=== PATIENT | female | born 1950 | race Caucasian/White ===

== ENCOUNTER → 2017-07-16 14:11 | Outpatient (CLI) | payer MEDICARE, SELFPAY ==
[2017-07-16 15:54] LABS: Absolute Lymphocyte Count 2.03 X10^3/ul (0.83-4.51); Absolute Neutrophil Count 4.2 X10^3/uL (2.0-7.7); Basophil# 0.06 X10^3/uL; Basophil% 0.8 % (0-1); Eosinophil# 0.39 X10^3/uL; Eosinophils% 5.4 % (0-5); Hematocrit 42.2 % (37-47); Lymphocyte # 2.03 X10^3/ul (4.0); Lymphocyte % 28.4 % (19-41); Mean Corp Hgb Conc 33.2 g/gl (32-36); Mean Corpuscular Hgb 29.7 pg (27.0-32.0); Mean Corpuscular Volume 89.6 fL (81-99); Mean Platelet Vol. 10.4 fl (6.2-12.0); Neutrophil # 4.15 X10^3/uL (2.7-7.7); Platelet Count 282 K/mm3 (150-450); RBC Distribution Width CV 15.3 % (11.6-14.6); RBC Distribution Width SD 50.2 fl (35.1-43.9); Red Blood Count 4.71 M/mm3 (4.2-5.4); White Blood Count 7.2 K/mm3 (4.4-11.0)
[2017-07-16 15:57] LABS: POSITIVE COUNT NO; POSITIVE DIFFERENTIAL NO; POSITIVE MORPHOLOGY NO
[2017-07-16 16:12] LABS: Hemoglobin A1c 6.4 % (4.2-6.3)
[2017-07-16 16:17] LABS: ALB/GLOB Ratio 0.9 RATIO (0.9-2.4); AST(SGOT) 14 U/L (15-37); Alanine Aminotransfer ALT/SGPT 20 U/L (13-56); Albumin, Serum 3.3 g/dL (3.2-5.0); Alkaline Phosphatase 106 U/L (45-117); Anion Gap 6 (5-15); BUN 13 mg/dL (7-18); Calcium,Total 8.5 mg/dL (8.5-10.1); Chloride 99 mmol/L (98-107); Creatinine, Serum 0.86 mg/dL (0.55-1.02); EST Glomerular Filtration Rate 70 mL/min (>60); Est Glom Filt Rate - Afr Amer 84 mL/min (>60); Ferritin 51 ng/mL (8-252); Globulin 3.6 g/dL (2.2-4.2); Glucose 95 mg/dL (70-110); Iron 58 ug/dL (50-170); Potassium 3.5 mmol/L (3.5-5.1); Protein, Total 6.9 g/dL (6.4-8.2); Sodium Level 137 mmol/L (136-145); Thyroid Stim Hormone (TSH) 0.54 uIU/mL (0.358-3.74)
== END ==
PROVIDERS: Family Provider Family Medicine; PCP Family Medicine; Visit Provider Family Medicine
DX: D64.9 Anemia, unspecified (principal); R73.9 Hyperglycemia, unspecified; D50.9 Iron deficiency anemia, unspecified; I12.9 Hypertensive chronic kidney disease with stage 1 through stage 4 chronic kidney disease, or unspecified chronic kidney disease; N18.3 Chronic kidney disease, stage 3 (moderate)
CPT/HCPCS: 36415; 80053; 82728; 83036; 83540; 84443; 85025

== ENCOUNTER → 2017-07-24 14:00 | Outpatient (CLI) | payer MEDICARE, OTHER, SELFPAY ==
[2017-07-24 15:31] LABS: Amphetamine Urine VISTA NEGATIVE (<1000 ng/mL); Barbiturate Urine VISTA NEGATIVE (< 200 ng/mL); Benzodiazepine Urine VISTA NEGATIVE (< 200 ng/mL); Cocaine Urine VISTA NEGATIVE (< 300 ng/mL); Ecstacy Urine VISTA NEGATIVE (< 500 ng/mL); Methadone Urine VISTA NEGATIVE (< 300 ng/mL); PCP Urine VISTA NEGATIVE (< 25 ng/mL); THC Urine VISTA NEGATIVE (< 50 ng/mL); Vista UDS pH Range 6
== END ==
PROVIDERS: Family Provider Family Medicine; PCP Family Medicine; Visit Provider Anesthesiology Pain Medicine
DX: F11.20 Opioid dependence, uncomplicated (principal)
CPT/HCPCS: 80307

== ENCOUNTER → 2017-10-04 11:09 | Outpatient (CLI) | payer MEDICARE, OTHER, SELFPAY ==
[2017-10-04 12:32] LABS: Anion Gap 8 (5-15); BUN 23 mg/dL (7-18); Calcium,Total 8.9 mg/dL (8.5-10.1); Chloride 103 mmol/L (98-107); Creatinine, Serum 0.92 mg/dL (0.55-1.02); EST Glomerular Filtration Rate 65 mL/min (>60); Est Glom Filt Rate - Afr Amer 78 mL/min (>60); Glucose 114 mg/dL (74-106); Potassium 3.7 mmol/L (3.5-5.1); Sodium Level 137 mmol/L (136-145)
[2017-10-04 12:39] LABS: Absolute Lymphocyte Count 2.11 X10^3/ul (0.83-4.51); Absolute Neutrophil Count 4.8 X10^3/uL (2.0-7.7); Basophil# 0.04 X10^3/uL; Basophil% 0.5 % (0-1); Eosinophil# 0.14 X10^3/uL; Eosinophils% 1.8 % (0-5); Hematocrit 46.4 % (37-47); Hemoglobin 15.6 g/dl (12.0-15.0); Lymphocyte # 2.11 X10^3/ul (4.0); Lymphocyte % 27.4 % (19-41); Mean Corp Hgb Conc 33.6 g/gl (32-36); Mean Corpuscular Hgb 30.2 pg (27.0-32.0); Mean Corpuscular Volume 89.7 fL (81-99); Mean Platelet Vol. 9.8 fl (6.2-12.0); Monocyte# 0.61 X10^3/uL; Monocyte% 7.9 % (0-10); Neutrophil # 4.78 X10^3/uL (2.7-7.7); Platelet Count 288 K/mm3 (150-450); RBC Distribution Width CV 14.6 % (11.6-14.6); RBC Distribution Width SD 47.4 fl (35.1-43.9); Red Blood Count 5.17 M/mm3 (4.2-5.4); White Blood Count 7.7 K/mm3 (4.4-11.0)
[2017-10-04 12:40] LABS: POSITIVE COUNT NO; POSITIVE DIFFERENTIAL NO; POSITIVE MORPHOLOGY NO
[2017-10-04 14:17] LABS: Hemoglobin A1c 6.6 % (4.2-6.3)
== END ==
PROVIDERS: Family Provider Family Medicine; PCP Family Medicine; Visit Provider Family Medicine
DX: R73.01 Impaired fasting glucose (principal); I12.9 Hypertensive chronic kidney disease with stage 1 through stage 4 chronic kidney disease, or unspecified chronic kidney disease; N18.3 Chronic kidney disease, stage 3 (moderate)
CPT/HCPCS: 36415; 80048; 83036; 85025

== ENCOUNTER → 2017-12-25 13:27 | Outpatient (CLI) | payer MEDICARE, OTHER, SELFPAY ==
--- NOTE | 2017-12-25 13:38 | RAD_ITS ---
STUDY: X-RAY - PELVIS AND LEFT HIP REASON FOR EXAM: Female, 67 years old. Hip pain. TECHNIQUE: Radiological exam, hip, unilateral, with pelvis when performed; 2 or 3 views. COMPARISON: None. FINDINGS: There is a non-specific bowel gas pattern. Normal visualized soft tissue structures. Normal bilateral iliac wings, sacroiliac joints and visualized sacrum. Normal bilateral superior and inferior pubic rami. Normal pubic symphysis. Normal bilateral ischial tuberosities. There are degenerative changes of the lower lumbar spine. There are extensive degenerative changes of the left hip characterized by joint space narrowing and subchondral sclerosis. There is a curvilinear bony density lateral to the acetabulum consistent with an osseous injury of uncertain chronicity. RAD/Hip 2-3 Views with Pelvis IMPRESSION: Extensive degenerative changes of the left hip. Electronically Signed: Rajni Patino MD at 14:00 EDT Tel , Service support ,
== END ==
PROVIDERS: Family Provider Family Medicine; PCP Family Medicine; Visit Provider Anesthesiology Pain Medicine
DX: M25.552 Pain in left hip (principal)
CPT/HCPCS: 73502

== ENCOUNTER → 2018-02-21 15:15 | Outpatient (CLI) | payer MEDICARE, OTHER, SELFPAY | PROVIDERS: Family Provider Family Medicine; PCP Family Medicine; Visit Provider Family Medicine | DX: R35.0 Frequency of micturition (principal) | CPT/HCPCS: 87086; 87088 ==

== ENCOUNTER → 2018-06-23 14:04 | Outpatient (CLI) | payer MEDICARE, OTHER, SELFPAY ==
[2018-06-23 14:10] LABS: Bacteria 0 SEEN /hpf (None Seen); Mucous, Urine 0 SEEN /hpf (<or=2+); Red Blood Cells-Urine 0 SEEN /hpf (0-5)
[2018-06-23 15:38] LABS: Color, Urine Yellow (Yellow); Glucose, Dipstick Normal (Normal); Ketone-Dipstick Negative (Negative); Leukocyte Esterase-Dipstick 25 /ul (Negative); Nitrite-Dipstick Negative (Negative); Occult Blood-Urine 10 /ul (Negative); Protein-Dipstick 15 mg/dl (Negative); Urine Bilirubin Dipstick 1 mg/dL (Negative); Urine Clarity Sl. Cloudy (Clear); Urine Urobilinogen 1 mg/dl (Normal)
[2018-06-23 15:49] LABS: Hemoglobin A1c 6.9 % (4.2-6.3); Squamous Epithelial Cells - UA 5-10 SEEN /hpf (5-10)
[2018-06-23 15:51] LABS: White Blood Cells 0-5 SEEN /hpf (0-5)
[2018-06-23 16:14] LABS: Absolute Lymphocyte Count 2.04 X10^3/ul (0.83-4.51); Absolute Neutrophil Count 4.8 X10^3/uL (2.0-7.7); Basophil# 0.05 X10^3/uL; Basophil% 0.7 % (0-1); Eosinophil# 0.09 X10^3/uL; Eosinophils% 1.2 % (0-5); Hematocrit 48.7 % (37-47); Hemoglobin 16.3 g/dl (12.0-15.0); Lymphocyte # 2.04 X10^3/ul (4.0); Lymphocyte % 26.9 % (19-41); Mean Corp Hgb Conc 33.5 g/gl (32-36); Mean Corpuscular Hgb 29.8 pg (27.0-32.0); Mean Platelet Vol. 10.1 fl (6.2-12.0); Monocyte# 0.54 X10^3/uL; Monocyte% 7.1 % (0-10); Neutrophil # 4.82 X10^3/uL (2.7-7.7); Neutrophil % 63.7 % (47-70); Platelet Count 348 K/mm3 (150-450); RBC Distribution Width SD 49.6 fl (35.1-43.9); Red Blood Count 5.47 M/mm3 (4.2-5.4); White Blood Count 7.6 K/mm3 (4.4-11.0)
[2018-06-23 16:17] LABS: Progesterone Level 0.07 ng/mL (See Comment)
[2018-06-23 16:32] LABS: Microalbumin,Random Urine 18.7 mg/L (NO RANGE EST.); Microalbumin:Creatinine Ratio 12.8 mg/g CRE (<30 mg/g CRE)
[2018-06-23 16:34] LABS: POSITIVE COUNT NO; POSITIVE DIFFERENTIAL NO; POSITIVE MORPHOLOGY NO
[2018-06-23 17:08] LABS: ALB/GLOB Ratio 0.9 RATIO (0.9-2.4); AST(SGOT) 22 U/L (15-37); Alanine Aminotransfer ALT/SGPT 32 U/L (13-56); Albumin, Serum 3.7 g/dL (3.2-5.0); Alkaline Phosphatase 118 U/L (45-117); Anion Gap 10 (5-15); BUN 11 mg/dL (7-18); BUN/Creat Ratio 12.3 RATIO (10-20); Calcium,Total 9.3 mg/dL (8.5-10.1); Chloride 99 mmol/L (98-107); EST Glomerular Filtration Rate 67 mL/min (>60); Est Glom Filt Rate - Afr Amer 81 mL/min (>60); Estradiol 21.6 pg/mL; Ferritin 72 ng/mL (8-252); Globulin 3.9 g/dL (2.2-4.2); Glucose 104 mg/dL (74-106); Potassium 3.3 mmol/L (3.5-5.1); Protein, Total 7.6 g/dL (6.4-8.2); Sodium Level 139 mmol/L (136-145); T4 Free Direct 1.07 ng/dL (0.76-1.46); Thyroid Stim Hormone (TSH) 0.31 uIU/mL (0.358-3.74)
[2018-06-25 11:10] LABS: DHEA Sulfate 25.1 ug/dL (20.4-186.6)
== END ==
PROVIDERS: Family Provider Family Medicine; PCP Family Medicine; Visit Provider Family Medicine
DX: I10 Essential (primary) hypertension (principal); R61 Generalized hyperhidrosis; D50.9 Iron deficiency anemia, unspecified; R10.9 Unspecified abdominal pain; R23.2 Flushing
CPT/HCPCS: 36415; 80053; 81001; 82043; 82570; 82627; 82670; 82728; 83036; 84144; 84403; 84439; 84443; 85025; 87086; 87088; 82626

== ENCOUNTER → 2018-09-18 15:53 | Outpatient (CLI) | payer MEDICARE, OTHER, SELFPAY | PROVIDERS: Family Provider Family Medicine; PCP Family Medicine; Referring Provider Anesthesiology Pain Medicine; Visit Provider Anesthesiology Pain Medicine | DX: F11.20 Opioid dependence, uncomplicated (principal) | CPT/HCPCS: 80307 ==

== ENCOUNTER → 2019-01-21 11:08 | Outpatient (CLI) | payer MEDICARE, OTHER, SELFPAY ==
[2019-01-21 12:59] LABS: Cholesterol 227 mg/dL (200); High Density Lipoprotein 53 mg/dL; Triglycerides 170 mg/dL; Very Low Density Lipoprotein 34 mg/dL (5-40)
[2019-01-21 13:01] LABS: Hemoglobin A1c 6.4 % (4.2-6.3)
== END ==
PROVIDERS: Family Provider Family Medicine; PCP Family Medicine; Visit Provider Family Medicine
DX: E11.9 Type 2 diabetes mellitus without complications (principal); I10 Essential (primary) hypertension
CPT/HCPCS: 36415; 80061; 83036

== ENCOUNTER → 2019-02-04 | Outpatient (CLI) | payer MEDICARE, OTHER, SELFPAY ==
--- NOTE | 2019-02-04 09:13 | STRESSREP ---
Stress Test Report Date: 02-04-19 Procedure: Pharmacologic stress nuclear imaging study Indications: Hypertension; chest discomfort Consent: Per the patient Procedure: The patient underwent pharmacologic (Regadenoson) evaluation with a peak heart rate of 75 beats per minute (49 %predicted maximal heart rate) and a peak blood pressure of 118/78 mmHg. The baseline ECG demonstrated normal sinus rhythm. The peak pharmacologic ECG demonstrated no obvious ECG changes. There were no cardiac dysrhythmias pretest, during pharmacologic infusion, or recovery. There was no complaint of chest discomfort during pharmacologic infusion or recovery. The examination was discontinued secondary to completion of protocol. Impression: 1. Pharmacologic (Regadenoson) evaluation 2. Peak pharmacologic ECG with no obvious ECG changes. 3. There were no cardiac dysrhythmias pretest, during pharmacologic infusion, or recovery. 4. Nuclear images pending Myocardial perfusion imaging study: Technique: The patient was injected with 14.3 millicuries of technetium 99m Cardiolite and subsequently rest SPECT Cardiolite nuclear imaging was obtained in the horizontal long, vertical long, and short axis views. The patient underwent pharmacologic (Regadenoson) evaluation with a peak heart rate of 75 beats per minute (49 % percent predicted maximal heart rate) and a peak blood pressure of 118/78 mmHg. The patient was injected with 44.3 millicuries of technetium 99m Cardiolite and subsequently stress SPECT Cardiolite nuclear imaging was obtained in the horizontal long, vertical long, and short axis views. A gated Cardiolite study at peak stress was obtained. Interpretation: Rest and stress SPECT Cardiolite nuclear imaging status post realignment, normalization, and attenuation correction demonstrate relative uniform tracer uptake and myocardial perfusion appearing within normal limits. There is end systolic thickening and brightening. The gated Cardiolite study demonstrates myocardial thickening and inward wall motion. The reported LVEF is 76 %. Impression: 1. Rest and stress SPECT Cardiolite nuclear imaging demonstrate relative uniform tracer uptake and myocardial perfusion appearing within normal limits. 2. The gated Cardiolite study reports an LVEF of 76 %. This note was generated with UN[employer]ation software. It may contain incorrect words, spelling, and punctuation that were not noted in checking the note before signing.
== END | disposition home or self-care (01) ==
PROVIDERS: Family Provider Family Medicine; PCP Family Medicine; Referring Provider Family Medicine; Visit Provider Family Medicine
DX: R06.09 Other forms of dyspnea (principal); I10 Essential (primary) hypertension; E78.5 Hyperlipidemia, unspecified; R53.83 Other fatigue; I70.0 Atherosclerosis of aorta; Z72.0 Tobacco use
CPT/HCPCS: 78452; 93017; A9500; A4216; J2785

== ENCOUNTER → 2019-04-15 | Outpatient (CLI) | payer MEDICARE, OTHER, SELFPAY ==
--- NOTE | 2019-04-15 14:55 | CT_ITS ---
STUDY: CT BRAIN WITH AND WITHOUT CONTRAST REASON FOR EXAM: Female, 68 years old. Peak and falls, urinary continence, rule out normal pressure hydrocephalus. RADIATION DOSAGE (If Supplied By Facility): CTDIvol = ( 44.99 ) mGy, DLP = ( 779.24 ) mGycm TECHNIQUE: Transaxial CT imaging of the brain was performed pre and post contrast administration. The examination was performed with intravenous administration of IV Isovue 370 50ML. Individualized dose optimization techniques were used for this CT. COMPARISON: None. FINDINGS: Normal soft tissue structures. Normal calvarium. There is mild cerebral atrophy with widening of the extra-axial spaces and ventricular dilatation. There are areas of decreased attenuation within the white matter tracts of the supratentorial brain, consistent with microvascular disease changes. There is a small ovoid CSF attenuation structure within the anterior aspect of the right internal capsule measuring 6 mm and most compatible with old lacunar infarct. Otherwise normal basal ganglia and thalami. Normal brainstem. Normal cerebellum. There is no intracranial hemorrhage. There are no findings of an acute ischemic infarction. Normal visualized paranasal sinuses. CT/Brain/Head W/WO Contrast IMPRESSION: Involutional changes along with microangiopathic white matter disease. Normal enhancement of the intracranial structures. No acute intracranial hemorrhage or space-occupying lesion. Electronically Signed: Alessandra Harkins MD at 5:13 EDT , Service support ,
[2019-04-15 15:16] LABS: CREATININE FINGERSTICK 1.1 mg/dL (0.55-1.02)
== END | disposition home or self-care (01) ==
PROVIDERS: Family Provider Family Medicine; PCP Family Medicine; Referring Provider Family Medicine; Visit Provider Family Medicine
DX: R29.6 Repeated falls (principal); N39.41 Urge incontinence
CPT/HCPCS: 70470; Q9967

== ENCOUNTER → 2019-11-03 12:17 | Outpatient (CLI) | payer MEDICARE, OTHER, SELFPAY ==
[2019-11-03 13:44] LABS: Amphetamine Urine VISTA NEGATIVE (<1000 ng/mL); Barbiturate Urine VISTA NEGATIVE (< 200 ng/mL); Benzodiazepine Urine VISTA NEGATIVE (< 200 ng/mL); Cocaine Urine VISTA NEGATIVE (< 300 ng/mL); Ecstacy Urine VISTA NEGATIVE (< 500 ng/mL); Methadone Urine VISTA NEGATIVE (< 300 ng/mL); PCP Urine VISTA NEGATIVE (< 25 ng/mL); THC Urine VISTA NEGATIVE (< 50 ng/mL); Vista UDS pH Range 6
== END ==
PROVIDERS: PCP Family Medicine; Referring Provider Anesthesiology Pain Medicine; Visit Provider Anesthesiology Pain Medicine
DX: F11.20 Opioid dependence, uncomplicated (principal)
CPT/HCPCS: 80307

== ENCOUNTER → 2020-03-24 | Outpatient (CLI) | payer MEDICARE, OTHER, SELFPAY ==
[2020-03-24 12:35] LABS: Absolute Lymphocyte Count 1.43 X10^3/uL (0.83-4.51); Absolute Neutrophil Count 4.6 X10^3/uL (2.0-7.7); Basophil# 0.07 X10^3/uL; Eosinophil# 0.18 X10^3/uL; Eosinophils% 2.6 % (0-5); Hematocrit 44.8 % (37-47); Hemoglobin 14.5 g/dL (12.0-15.0); Lymphocyte # 1.43 X10^3/ul (4.0); Lymphocyte % 20.8 % (19-41); Mean Corp Hgb Conc 32.4 g/dL (32-36); Mean Corpuscular Hgb 28.8 pg (27.0-32.0); Mean Corpuscular Volume 88.9 fL (81-99); Mean Platelet Vol. 9.6 fl (6.2-12.0); Monocyte# 0.58 X10^3/uL; Monocyte% 8.4 % (0-10); NRBC Flagged by Analyzer 0 % (0-5); Neutrophil % 66.9 % (47-70); Platelet Count 306 K/mm3 (150-450); RBC Distribution Width CV 13.8 % (11.6-14.6); RBC Distribution Width SD 44.9 fl (35.1-43.9); Red Blood Count 5.04 M/mm3 (4.2-5.4); White Blood Count 6.9 K/mm3 (4.4-11.0)
[2020-03-24 13:09] LABS: ALB/GLOB Ratio 0.9 RATIO (0.9-2.4); AST(SGOT) 22 U/L (15-37); Alanine Aminotransfer ALT/SGPT 31 U/L (13-56); Albumin, Serum 3.4 g/dL (3.2-5.0); Alkaline Phosphatase 107 U/L (45-117); Anion Gap 6 (5-15); BUN 11 mg/dL (7-18); BUN/Creat Ratio 13.2 RATIO (10-20); Calcium,Total 8.9 mg/dL (8.5-10.1); Chloride 99 mmol/L (98-107); Cholesterol 152 mg/dL (200); Creatinine, Serum 0.83 mg/dL (0.55-1.02); EST Glomerular Filtration Rate 72 mL/min (>60); Est Glom Filt Rate - Afr Amer 87 mL/min (>60); Ferritin 57 ng/mL (8-252); Globulin 3.6 g/dL (2.2-4.2); Glucose 118 mg/dL (74-106); High Density Lipoprotein 56 mg/dL; Iron 92 ug/dL (50-170); Potassium 3.5 mmol/L (3.5-5.1); Sodium Level 135 mmol/L (136-145); Triglycerides 170 mg/dL; Very Low Density Lipoprotein 34 mg/dL (5-40)
[2020-03-24 13:16] LABS: Vitamin B12 383 pg/mL (211-911); Vitamin D,25 Hydroxy 18.8 ng/mL
[2020-03-24 21:55] LABS: Hemoglobin A1c 6.5 % (3.8-5.6)
== END | disposition home or self-care (01) ==
LOC: BFHLAB 10:56
PROVIDERS: PCP Family Medicine; Visit Provider Family Medicine
DX: E11.9 Type 2 diabetes mellitus without complications (principal); I10 Essential (primary) hypertension; E78.5 Hyperlipidemia, unspecified; D50.9 Iron deficiency anemia, unspecified; E55.9 Vitamin D deficiency, unspecified; Z51.81 Encounter for therapeutic drug level monitoring
CPT/HCPCS: 36415; 80053; 80061; 82306; 82607; 82728; 83036; 83540; 85025

== ENCOUNTER 2020-04-11 15:30 | Outpatient (RCR) | payer MEDICARE, OTHER, SELFPAY ==
--- NOTE | 2020-04-06 16:39 | HP.PTEVAL_ITS ---
Patient's Visit Information SERA MAYA is a 69 year old F referred to Physical Therapy by Dr. Kush Cheung DO with a diagnosis of Falls, dizzyness, lumbar stenosis.. Date of Evaluation: 04/06/20 Physical Therapist: Paresh Solis, DPT, OCS, CSCS - Visit Plan Frequency: 3x /Week Duration: 4-6 Weeks Plan: 3x/week for 3-6 weeks for. 1. Hip strengthening and core sterngthening progressing to I HEP as exit strategy. 2. General ex pt can do at home with list/pics as exit strategy. 3. Emphasize L hip strength. - Subjective Has fallen 3x in last week. Hut ribs last time. Doctor aware and has sent for therapy. Last fall was opening door too fast and turned quick. Tripped over cat carrier hitting ribs on carrier. Can get up herself with chair for support. Other falls were tripping over a foot. No spinning in a long time. No n europathy. Uses cane to get around outside of home, not in the house. Pain is not bad now. Back is feeling pretty good as doctor Senia gave injection 3 weeks ago. L ribs hurt now and then. Sleeping well. No regular exercises. Does cooking and dishes until ribs hut. Making bed is hard on back. Lifting heavy pot can hurt. Basic aDLs are I. H/O L NADIYA 3 yrs ago and balacne has not been the same since. Not employed, on disability from back pain. Spends day reading and playing on phone and feeding cats. - Pain L ant ribs Pain Intensity (Out of 10): 8 Pain Intensity Range: 8 - Objective L leg shorter than R by 3/8 inch. Uses cane to ambulate into PT with L hip jutting out to side. mod I. Transfers are I with UE but slow. Bed trasnfers I but L ribs pain makes it labored. Steps are reciprocal with one cane and one rail up and down and slow and evidence of weakness aprticularly L hip. reflexes 0/3 patella and achilles. Sensation LE WNL to gross light touch. Strength ankles 4-, knee extension 4, knee flexion 4, hip flexion 4-, hip abduction 3+ and hip extension 3/5. core strength 3- abd and back ext. LB aROM ext min limitecd, flexion min limited, SB min limited, no pain in any direction. - Balance Scores Functional Gait Assessment Score: 21 % Disability: 30.0000 CATSIB Score (Max score 120 seconds): 70 - Goals Goal 1:: Pt I appropr EHp to help mitigate effects of sedentarism. Goal Time Frame: 4-6 Weeks Goal 2:: Pt feel 75% more active with no pain or dizzyness Goal Time Frame: 4-6 Weeks Goal 3:: Pt score 40/80 on LEFS to show improved mobility Goal Time Frame: 4-6 Weeks Goal 4:: Score fGA >23/30 Goal Time Frame: 4-6 Weeks - Rehabilitation Potential Physical Therapy Diagnosis: Falls from weakness, sedentarism. Rehabilitation Potential: Fair - Anticipated Interventions Patient/Client Instruction: Educate patient on: Condition For the Purpose of:: To increase ROM, To improve muscle performance and motor function, To increase tolerance to activity/condition/position, To improve ability of physical actions for home/community/work/leisure Therapeutic Exercise to Include: Strength training, Balance training, Flexibilty training, Gait and locomotor training For the Purpose of:: To improve muscle performance and motor function, To increase tolerance to activity/condition/position, To improve ability of physical actions for home/community/work/leisure Functional Training to Include: Gait training For the Purpose of:: To improve gait and locomotor functions Thank you for the opportunity to evaluate your patient. For Medicare and Medicare HMO plans, please review the plan of care and approve it. It will need to be FAXED BACK to us at [phone] for Medicare purposes. For Medicare only, by signing this I certify the plan of care. Please let me know if there are questions or concerns regarding this plan of care. Physician Signature: Date:
--- NOTE | 2020-05-24 17:30 | HP.PT.NRP ---
SERA MAYA was seen in my office for initial evaluation on 04/06/20. The following Plan of Care was established for this patient: Initial Frequency: 3x /Week Initial Duration: 4-6 Weeks Patient/Client Instruction: Educate patient on: Condition For the Purpose of:: To increase ROM, To improve muscle performance and motor function, To increase tolerance to activity/condition/position, To improve ability of physical actions for home/community/work/leisure Therapeutic Exercise to Include: Strength training, Balance training, Flexibilty training, Gait and locomotor training For the Purpose of:: To improve muscle performance and motor function, To increase tolerance to activity/condition/position, To improve ability of physical actions for home/community/work/leisure Functional Training to Include: Gait training For the Purpose of:: To improve gait and locomotor functions This patient was last seen in our office 04/11/20. Pertinent comments regarding their Physical therapy will appear below: Pt seen two visits of POC and cacnelled the rest due to rib pain. She was to contact her physician regarding this pain and call if she wished to return to therapy. at this point, it has been over 5 weeks and I will discontinue due to nonattendance. At this point I will be discontinuing this patient from physical therapy. I would be happy to see this patient again in the future if found appropriate by the physician. Thank you! Paresh Solis, DPT, OCS, CSCS
== END 2020-04-11 19:00 | disposition home or self-care (01) ==
LOC: PT 15:30
PROVIDERS: PCP Family Medicine; Referring Provider Family Medicine; Visit Provider Family Medicine
DX: M48.061 Spinal stenosis, lumbar region without neurogenic claudication (principal); R29.6 Repeated falls; R42 Dizziness and giddiness
CPT/HCPCS: 97110; 97162

== ENCOUNTER → 2020-04-20 14:51 | Outpatient (CLI) | payer MEDICARE, OTHER, SELFPAY ==
--- NOTE | 2020-04-20 15:10 | RAD_ITS ---
STUDY: X-RAY - BILATERAL RIBS WITH CHEST REASON FOR EXAM: Female, 69 years old. FALL. BILATERAL RIB PAIN UNDER SHOULDER BLADES AND BREASTS. PAIN WORSE ON THE LEFT SIDE. TECHNIQUE - RIBS: 8 view(s) of the ribs. TECHNIQUE - CHEST: Single PA view of the chest. COMPARISON: None. FINDINGS - RIBS : Multiple healed left rib fractures. FINDINGS - CHEST: The lungs are clear and expanded. There is no demonstrated pleural abnormality. Normal size heart. Normal mediastinum and denisha. Normal visualized pulmonary arteries. Normal visualized aortic arch and descending thoracic aorta. Normal visualized thoracic spine. Normal visualized ribs, clavicles, and shoulders. There is no demonstrated abnormality of the visualized soft tissue structures of the upper abdomen. RAD/Ribs Uni Min 3V w/PA Chest IMPRESSION: RIBS: No obvious acute displaced rib fracture. CHEST: Normal x-ray examination of the chest. Electronically Signed: Jeffery Rasmussen MD at 15:46 EST Tel , Service support ,
== END ==
PROVIDERS: PCP Family Medicine; Referring Provider Anesthesiology Pain Medicine; Visit Provider Anesthesiology Pain Medicine
DX: R07.81 Pleurodynia (principal); W19.XXXA Unspecified fall, initial encounter
CPT/HCPCS: 71101

== ENCOUNTER → 2020-04-26 15:59 | Outpatient (CLI) | payer MEDICARE, OTHER, SELFPAY ==
--- NOTE | 2020-04-26 16:02 | CT_ITS ---
STUDY: CT CHEST WITHOUT CONTRAST- LOW DOSE SCREENING PROTOCOL REASON FOR EXAM: Female, 69 years old. Current smoker. 20 pack per year history. No current symptoms of lung cancer or pulmonary infection. Shared decision-making with referring PCP documented in patient''s record. RADIATION DOSAGE (If Supplied By Facility): CTDIvol = ( 4.02 ) mGy, DLP = ( 130.10 ) mGycm TECHNIQUE: Low dose screening CT examination performed from the base of the neck to the upper abdomen. Sagittal and coronal reformatted images performed. Sagittal and coronal MIP images provided. The measurements provided are average, rounded measurements per ACR guidelines. COMPARISON: None. FINDINGS: Linear scar in the anterior right upper lobe. No noncalcified nodule or mass. There is no demonstrated pleural abnormality. Normal heart and pericardium. There are calcifications of the coronary arteries. Normal mediastinum. Normal hilar regions. Normal unenhanced pulmonary arteries. Normal aorta arch and descending thoracic aorta. Normal osseous structures. There is no demonstrated abnormality of the visualized upper abdomen. CT/Low Dose CT Lung Screening IMPRESSION: 1. No significant indeterminate incidental findings requiring additional imaging. 2. Incidental findings include right upper lobe scar.. ASSESSMENT CATEGORY: LungRADS 1 - Negative. Continue annual screening with LDCT in 12 months, per established ACR guidelines. Electronically Signed: Jeffery Rasmussen MD at 17:34 EST Tel , Service support ,
--- NOTE | 2020-04-26 16:17 | BI_ITS ---
MAMMOGRAPHY - BILATERAL SCREENING REASON FOR EXAM: Female, 69 years old. Routine annual screening examination. PERTINENT HISTORY: Non-contributory. TECHNIQUE: Digital bilateral breast reddy (3D mammographic acquisition) in the CC and MLO projections. 2-D mediolateral oblique (MLO) and craniocaudad (CC) views of both breasts were obtained. CAD: Full Field Digital Mammography with Computer Added Detection was performed. COMPARISON: Comparison is made with prior outside examination dated 10/20/2015. FINDINGS: Breast Composition: There are scattered areas of fibroglandular density. There are no dominant masses or suspicious calcifications. Stable small benign appearing bilateral axillary lymph nodes. No other significant abnormalities are identified. There has been no significant change since the prior study. BI/SCREEN MAMM (CAD) W/REDDY BILAT IMPRESSION: Stable bilateral screening mammogram. Yearly follow-up mammogram recommended. (A) ASSESSMENT CATEGORY: BIRADS Category 2: Benign. A letter regarding these results will be sent to the patient by the facility within 30 days. Approximately 10% of breast cancers are not detected by mammography. A normal mammogram should not delay biopsy of a clinically suspicious abnormality. [id number] Electronically Signed: Marvin Sheikh, at 8:14 EST , Service support ,
== END ==
PROVIDERS: PCP Family Medicine; Referring Provider Family Medicine; Visit Provider Family Medicine
DX: F17.210 Nicotine dependence, cigarettes, uncomplicated (principal); Z12.31 Encounter for screening mammogram for malignant neoplasm of breast; Z12.2 Encounter for screening for malignant neoplasm of respiratory organs
CPT/HCPCS: 77063; 77067; G0297

== ENCOUNTER → 2020-05-04 15:26 | Outpatient (CLI) | payer MEDICARE, OTHER, SELFPAY ==
[2020-05-04 17:34] LABS: Amphetamine Urine VISTA NEGATIVE (<1000 ng/mL); Barbiturate Urine VISTA NEGATIVE (< 200 ng/mL); Benzodiazepine Urine VISTA NEGATIVE (< 200 ng/mL); Cocaine Urine VISTA NEGATIVE (< 300 ng/mL); Ecstacy Urine VISTA NEGATIVE (< 500 ng/mL); Methadone Urine VISTA NEGATIVE (< 300 ng/mL); PCP Urine VISTA NEGATIVE (< 25 ng/mL); THC Urine VISTA NEGATIVE (< 50 ng/mL); Vista UDS pH Range 6
== END ==
PROVIDERS: PCP Family Medicine; Referring Provider Anesthesiology Pain Medicine; Visit Provider Anesthesiology Pain Medicine
DX: F11.20 Opioid dependence, uncomplicated (principal)
CPT/HCPCS: 80307

== ENCOUNTER → 2020-07-05 | Outpatient (CLI) | payer MEDICARE, OTHER, SELFPAY | END | disposition home or self-care (01) | PROVIDERS: PCP Family Medicine; Referring Provider Anesthesiology Pain Medicine; Visit Provider Anesthesiology Pain Medicine | DX: F11.20 Opioid dependence, uncomplicated (principal) | CPT/HCPCS: 36415 ==

== ENCOUNTER 2020-08-16 13:00 | Outpatient (RCR) | payer MEDICARE, OTHER, SELFPAY ==
--- NOTE | 2020-07-28 13:46 | HP.PTEVAL_ITS ---
Patient's Visit Information SERA MAYA is a 69 year old F referred to Physical Therapy by Dr. Kush Cheung DO with a diagnosis of SPINAL STENOSIS AND FREQUENT FALLS. Date of Evaluation: 07/28/20 Physical Therapist: Yamini Carpenter PT, Cert MDT - Visit Plan Frequency: 2-3x /Week Duration: 4-6 Weeks Plan: POSTURE CORRECTION/STRENGTHENING, GAIT/BALANCE TRAINING. DLS WITH A NEUTRAL SPINE TOLERATED. RAMOS LE ROM, STRETCHING AND STRENGTHENING WITH EMPHASIS ON L HIP STRENGTHENING. HEP INSTRUCTION. - Subjective Work/Leisure: RETIRED. Disability: YES - LOW BACK PAIN - HERNIATED DISCS. Present symptoms: FALLING. PATIENT REPORTS FALLING 3 TIMES IN ONE MONTH IN MAR 2020. CHRONIC LOW BACK PAIN. NO HIP PAIN. CURRENTLY HAVING RIGHT LOW BACK PAIN SINCE FALLING IN MAR AND FX'ING HER RIBS. Present since: STARTED FALLING AFTER LEFT HIP REPLACEMENT ABOUT 4 YEARS AGO. Pain Scale: LBP: WORST 8/10, LEAST 0/10. Currently: 06/26. Commenced as a result of: PATIENT RELATES HER FALLS TO HER L THR AND LBP TO A FALL AT WORK YEARS AGO. PATIENT RELATES HER CURRENT RIGHT LBP TO HER FALL IN MAR 2020. Worse: SLIGHTLY BENDING, STANDING AND WALKING. Better: SITTING, LYING DOWN. Disturbed sleep: YES - IN R SDLY. Previous history/Previous treatment: IN PAIN MGMT WITH DR. CORONA AND [facility]. TRIED PT HERE AFTER HER FALLS LAST FALL BUT WAS IN TOO MUCH PAIN TO CONTINUE. Coughing/sneezing/straining: POSITIVE. Gait: PATIENT DENIES ANY FALLS SINCE LAST MARCH. STATES SHE TAKES HER CANE WITH HER EVERYWHERE. SHE REPORTS HER BALANCE IS BETTER SOMETIMES THAN OTHERS AND SHE THINKS HER VERTIGO AFFECTS HER BALANCE. Unexplained weight loss: NO. Imaging: NONE RECENT. PMH: HTN AND FIBROMYALGIA. SMOKER. Recent major surgery: RAMOS TKR'S AND L THR. - Objective Sitting/Standing Posture: POOR. RIGHT LATERAL SHIFT. RIGHT LE LONGER THAN LEFT. Active Correction of posture: NE. Other Observations: INDEP GAIT INTO PT WITH A STRAIGHT CANE AND MILD LIMP ON LLE. INDEP TRANSFER SIT TO STAND WI THOUT UE ASSIST BUT THIS IS DIFFICULT FOR PATIENT. SHE IS ABLE TO SLS ON EACH LEG FOR ABOUT 5 SEC BUT BALANCE IS BETTER ON LLE THAN RIGHT AND PATIENT LEADS UP THE STEPS BETTER WITH HER LLE THAN RIGHT. PATIENT IS ABLE TO TRANSFER SIT TO RIGHT SDLY AND REVERSE INDEP'LY WITHOUT C/O INCREASED PAIN. SHE IS ABLE TO DO A FULL BRIDGE IN SUPINE AND A PARTIAL BRIDGE IN SDLY WITH A MODIFIED PLANK AND NO C/O PAIN. Motor deficit: RAMOS LE STRENGTH IS GROSSLY 5/5 WITH MMT'ING EXCEPT RAMOS HIP WEAKNESS L > R. PATIENT WITH SIGNIFICANT L GLUT MED WEAKNESS. RIGHT HIP 4/5, LEFT HIP 4-/5. Sensory deficit: RAMOS LE LIGHT TOUCH SENSATION INTACT AND SYMMETRICAL. ROM deficit: TIGHT RAMOS HIP ROTATORS AND HIP EXTENSION. Lumbar mvmt loss: flex - NIL. DEVIATION TO THE RIGHT. ext - HILARIO. R SG - HILARIO. L SG - HILARIO. Core strength: POOR. Palpation: NO ACUTE TENDERNESS WITH PALPATION OF LUMBOSACRAL, RIB OR HIP REGIONS EXCEPT MILD RAMOS LOW BACK TENDERNESS. End ] - Goals Goal 1:: INDEP AND SAFE GAIT ON LEVEL SURFACES AND UP AND DOWN STEPS WITH LEAST ASSISTIVE DEVICE. Goal Time Frame: 4-6 Weeks Goal 2:: INCREASE L HIP FUNCTIONAL STRENGTH Goal Time Frame: 4-6 Weeks Goal 3:: PATIENT WILL BE INDEP WITH A HEP FOR BALANCE AND STRENGTHENING ONCE FORMAL PHYSICAL THERAPY CONCLUDES. Goal Time Frame: 4-6 Weeks - Anticipated Interventions Patient/Client Instruction: Educate patient on: Condition, Plan of Care, Risk Factors, Benefits of Fitness Program For the Purpose of:: To improve self management Therapeutic Exercise to Include: Strength training, Body mechanics, Postural training, Flexibilty training, Gait and locomotor training, Neuromotor development, Dynamic Lumbar Stabilization For the Purpose of:: To decrease pain, To increase ROM, To improve muscle performance and motor function, To increase tolerance to activity/condition/position, To improve ability of physical actions for home/community/work/leisure, To improve gait and locomotor functions Thank you for the opportunity to evaluate your patient. For Medicare and Medicare HMO plans, please review the plan of care and approve it. It will need to be FAXED BACK to us at [phone] for Medicare purposes. For Medicare only, by signing this I certify the plan of care. Please let me know if there are questions or concerns regarding this plan of care. Physician Signature: Date:
== END 2020-08-16 19:00 | disposition home or self-care (01) ==
LOC: PT 13:00
PROVIDERS: PCP Family Medicine; Referring Provider Family Medicine; Visit Provider Family Medicine
DX: R29.6 Repeated falls (principal); M48.061 Spinal stenosis, lumbar region without neurogenic claudication
CPT/HCPCS: 97110; 97162; 97530

== ENCOUNTER 2020-08-25 19:53 | Inpatient (IN) | payer MEDICARE, OTHER, SELFPAY ==
[2020-08-25 20:32] VITALS: BMI 33.4
--- NOTE | 2020-08-25 20:37 | PCM.HP.STD ---
Problem List (1) Left-sided colitis Status: Acute (2) Diabetes mellitus type 2 in obese Status: Chronic (3) Fibromyalgia Status: Chronic (4) Hypertension Status: Chronic (5) GERD (gastroesophageal reflux disease) Status: Chronic History of Present Illness Date of Admission: 08/25/20 Chief Complaint: Acute onset of severe abdominal pain today The patient is a 69 year old F with multiple comorbidities listed above is direct admit on [facility] floor from [facility] for abdominal pain. Patient complain of sudden severe onset of abdominal pain mainly in both lower quadrants that became generalized. She also felt dizzy. As per the she passed out 2 times probably for about few seconds. First time it was unwitnessed and has been found on the floor and second time patient passed out on 's arm. No significant injury. Patient has felt nausea. Patient has watery nonbloody diarrhea since morning. She has one time dark yellow urine output in the morning. CT abdomen done shows diffuse left-sided colitis from transverse to sigmoid colon, suspicious of infectious, inflammatory or ischemic. Vitals in ER blood pressure 100/75, heart rate 86, respiratory rate 18, temperature 97.5. When patient arrived in ER blood pressure was low 80/60 but it improved later on after IV fluid bolus treatment. Lactic acid was 3.2 improved to 1.8. Labs shows significant leukocytosis 17,000 with left shift, hemoglobin 18, platelets 336. Chemistry shows K3.9, sodium 135, chloride 95, BUN 15, creatinine 1.04. Glucose 230. Lipase 74. Liver chemistry normal. Patient received 1 dose of vancomycin and Zosyn. [] Twelve-lead EKG shows normal sinus rhythm at 68 bpm. QTC 460 ms. As per report blood cultures x2 have been ordered and sent. COVID-19 PCR negative. Stool for C. difficile was sent and is sent out from [facility]. Past Medical History Past Medical History (Chronic Problems): Chronic Problems Diabetes mellitus type 2 in obese (Chronic) Fibromyalgia (Chronic) Hypertension (Chronic) GERD (gastroesophageal reflux disease) (Chronic) Review of Systems Constitutional: Reports: Anorexia, Chills, Malaise, Weakness, Fatigue. Denies: Fever HEENT: Denies: Head Aches, Sinus Congestion, Sinus Drainage Cardiovascular: Denies: Chest Pain, Palpitations Respiratory: Denies: Cough, Shortness of breath at rest, Sputum production Gastrointestinal: Reports: Abdominal Pain - Usually patient is constipation, Constipation, Diarrhea, Dyspepsia, Nausea. Denies: Melena, Vomiting Genitourinary: Denies: Dysuria, Frequency, Hesitancy Musculoskeletal: Denies: Joint Pain, Joint Tenderness Skin: Denies: Rash, Wounds Neurological: Denies: Numbness, Tingling, Focal weakness Psychiatric: Denies: Anxiety, Depression, Homicidal Ideations, Suicidal Ideations Hematologic/ Lymphatic: Denies: Easy Bruising, Easy Bleeding VTE Information - Inpt Only VTE Present on Admission: No VTE Mechan Device Prophylaxis: None VTE Pharm Prophylaxis ordered?: Yes Objective: General: Alert, Oriented x3, Cooperative HEENT: Atraumatic, PERRLA, EOMI, Normocephalic Oral: Oral mucosa dry. No Gingival or Mucosal Lesions/ Ulcerations Neck: Supple, No JVD, Negative Carotid Bruits Lungs: Air entry diminished in bilateral lung bases. No crepitation/rhonchi Cardiovascular: Regular rate, Regular Rhythm, Normal S1, Normal S2, No murmurs Abdomen: Hyperactive bowel sounds. Soft, tenderness present over both lower quadrants. No rebound tenderness. Non-Distended : No renal angle tenderness. No suprapubic tenderness. Extremities: Small bilateral ankle. Edema, Capillary Refill Less than 3 Seconds Skin: No rashes, No breakdown Musculoskeletal: No Tenderness to Palpation of Joints or Extremities Neurological: Cranial nerves II-XII grossly intact, Deep Tendon Reflexes 2+/4 and Symmetrical, Neuro grossly intact Psych/Mental Status: Normal Affect, Appropriate. Assessment/Plan All Active Problems Left-sided colitis (Acute) This 69 question female directly admitted from [facility] for severe abdominal pain and CT finding suggestive of diffuse left-sided colitis. 1. Severe sepsis due to left-sided from transverse colon to sigmoid colon colitis probably infectious/inflammatory/ischemic: Patient is well resuscitated with IV fluid. Keep n.p.o. IV fluid Ringer lactate at 100 mill per hour. Stool for enteric pathology panel, occult blood, leukocytes and C. difficile ordered. Patient had 1 dose of IV vancomycin and Zosyn. Continue IV Zosyn. If stool for C. difficile comes positive we will need to stop Zosyn and start on vancomycin p.o. lactobacillus ordered. 2. Diabetes mellitus type 2: Accu-Chek every 6 hourly while n.p.o. and cover with sliding scale. 3. Hypertension: Blood pressure was low in [facility] and has improved. Hold antihypertensive medications 4. GERD and fibromyalgia: Patient on oral PPI at home. Change to IV while patient is n.p.o. VTE prophylaxis moderate risk: Lovenox 40 mils subcu daily Living will/advanced directive/end of life care: Patient does not have living will or advanced directive. After discussion of benefits/risks procedures involved with full code, DNR CC arrest and DNR CC, the patient opted for full code. Patient does want artificial life support including intubation, tube feed, ventilator and/chest compression, central venous catheter, vasopressor and DC shock if needed Total time spent in [id number] encounter in discussion of advanced directive 16 minutes. Inpatient E&M: 94460 Init Hosp L3 Procedures: 61879 Advncd Care Plan 30 Min
[2020-08-25 20:45] VITALS: BMI 33.4
--- NOTE | 2020-08-25 20:50 | NURSING ---
Dr. Mena wanted me to call [facility] ([phone]) and check to see if they found the pt to be positive for CDiff since the pt was telling our MD that she was. They indicated that their test was a sendout and would not have results until tomorrow but there was a possibility she could be. Dr. Mena advised.
[2020-08-25 21:25] VITALS: BP 96/59; PULSE 88; RESP 18; TEMP 36.7; O2SAT 98
[2020-08-25] MEDS: Morphine 2 MG/ML Syringe IV (21:50)
[2020-08-25] MEDS: Lactated Ringers 1,000 ML 100 ML IV (22:39)
[2020-08-25 22:50] LABS: Bedside Glucose 89 mg/dL (70-110)
[2020-08-25] MEDS: MELATONIN 3 MG TABLET PO (23:24)
[2020-08-25] MEDS: Acetaminophen 325 MG Tablet 650 MG PO (23:24)
[2020-08-26] VITALS (11 sets, daily range): BP systolic 72–129; BP diastolic 43–98; PULSE 78–88; RESP 18; TEMP 36.5–36.9; O2SAT 91–97
--- NOTE | 2020-08-26 00:14 | NURSING ---
pt assisted up to BR, inability to void, bladder scanned for 686cc, call to Dr Mena for orders to straight cath this RN went back into pts room and pt wanted to try again to get up to bathroom. pt voided 450cc. bladder scanned again for 305cc. orders to straight cath if bladder scan amount is over 200cc. pt is refusing to be straight cathed and wants to wait until morning
[2020-08-26 03:26] LABS: Bedside Glucose 99 mg/dL (70-110)
--- NOTE | 2020-08-26 03:27 | EKG12_ITS ---
Test Reason : LOW BP Blood Pressure : / mmHG Vent. Rate : 077 BPM Atrial Rate : 077 BPM P-R Int : 156 ms QRS Dur : 096 ms QT Int : 410 ms P-R-T Axes : 041 -06 058 degrees QTc Int : 463 ms Normal sinus rhythm Normal ECG No previous ECGs available Confirmed by YULIA TRUJILLO, CRISTINA ([id number]), food editor WALT KO ([id number]) on 08/29/2020 11:42:41 A M Referred By: DR IRIZARRY Confirmed By:GISELL BENDER MD
[2020-08-26] MEDS: Lactated Ringers 1,000 ML 999 ML IV (03:51)
[2020-08-26 04:08] LABS: Absolute Lymphocyte Count 1.61 X10^3/uL (0.83-4.51); Absolute Neutrophil Count 7.6 X10^3/uL (2.0-7.7); Basophil# 0.07 X10^3/uL; Basophil% 0.7 % (0-1); Eosinophil# 0.32 X10^3/uL; Eosinophils% 3.1 % (0-5); Hematocrit 34.9 % (37-47); Hemoglobin 11.4 g/dL (12.0-15.0); Lymphocyte # 1.61 X10^3/ul (4.0); Lymphocyte % 15.6 % (19-41); Mean Corp Hgb Conc 32.7 g/dL (32-36); Mean Corpuscular Hgb 29.8 pg (27.0-32.0); Mean Corpuscular Volume 91.1 fL (81-99); Monocyte# 0.63 X10^3/uL; Monocyte% 6.1 % (0-10); NRBC Flagged by Analyzer 0 % (0-5); Neutrophil # 7.61 X10^3/uL (2.7-7.7); Neutrophil % 73.9 % (47-70); Platelet Count 229 K/mm3 (150-450); RBC Distribution Width CV 14.6 % (11.6-14.6); RBC Distribution Width SD 49.1 fl (35.1-43.9); Red Blood Count 3.83 M/mm3 (4.2-5.4); White Blood Count 10.3 K/mm3 (4.4-11.0)
[2020-08-26 04:31] LABS: AST(SGOT) 18 U/L (15-37); Alanine Aminotransfer ALT/SGPT 18 U/L (13-56); Albumin, Serum 2.2 g/dL (3.2-5.0); Alkaline Phosphatase 72 U/L (45-117); Anion Gap 6 (5-15); BUN 14 mg/dL (7-18); BUN/Creat Ratio 14.3 RATIO (10-20); Calcium,Total 7.8 mg/dL (8.5-10.1); Chloride 106 mmol/L (98-107); Creatinine, Serum 0.98 mg/dL (0.55-1.02); EST Glomerular Filtration Rate 60 mL/min (>60); Est Glom Filt Rate - Afr Amer 72 mL/min (>60); Estimated Creatinine Clearance 52.69 ml/min; Globulin 2.3 g/dL (2.2-4.2); Glucose 91 mg/dL (74-106); Magnesium 1.8 mg/dL (1.6-2.6); Phosphorus 3.3 mg/dL (2.5-4.9); Potassium 3.1 mmol/L (3.5-5.1); Protein, Total 4.5 g/dL (6.4-8.2); Sodium Level 139 mmol/L (136-145)
[2020-08-26] MEDS: Lactated Ringers 1,000 ML 150 ML IV ×2 (04:38→12:02)
[2020-08-26] MEDS: 0.9% Saline Lock 10 ML Syringe IV ×2 (05:36→17:40)
[2020-08-26 05:41] LABS: Bedside Glucose 81 mg/dL (70-110)
--- NOTE | 2020-08-26 05:42 | NURSING ---
pt bladder scanned at this time for 560cc. pt states she still does not have the urge to void. this RN encouraged pt to assist up to the BR to void, but pt refused and stated i just want to sleep this nurse stated that we could straight cath, but pt refused stating i do not want that. i will wait pt is A&O x3 at this time.
[2020-08-26] MEDS: Potassium Chloride 10mEq/100mL 10 MEQ/100 ML IV.SOLN. 100 MEQ IV BOLUS ×4 (06:42→11:34)
--- NOTE | 2020-08-26 06:53 | NURSING ---
pt up to void in bathroom. 400cc output
[2020-08-26] MEDS: Acetaminophen 325 MG Tablet 650 MG PO (09:21)
[2020-08-26] MEDS: Enoxaparin 40 MG/0.4 ML Syringe SC (10:36)
--- NOTE | 2020-08-26 11:15 | PCM.PN.HOSP ---
Patient Problems: Active and Suspected Problems Left-sided colitis (Acute) Subjective: Patient seen and examined. She was admitted with a complaint of abdominal pain and admitted as a transfer from [facility]. CT of the abdomen done showed diffuse left-sided colitis from transverse to sigmoid colon. She now feels much better and states abdominal pain has largely resolved. He has not had any diarrhea since he was admitted. She denies any nausea or vomiting, fever or chills. Review of systems otherwise negative. Has remained hemodynamically stable and is requesting for food. Vitals/I&O's: Vital Signs Temp Pulse Resp BP Pulse Ox 98.2 F 80 18 119/49 L 96 08/26/20 09:04 08/26/20 09:25 08/26/20 09:04 08/26/20 09:04 08/26/20 09:04 Oxygen Delivery Method Room Air Weight: 213 lb 6.4 oz Body Mass Index (BMI) 33.4 Intake and Output for Last 24 Hours 08/24/20 08/25/20 08/26/20 23:59 23:59 23:59 Intake Total 210 / 210 2192.5 / 2192.5 Output Total 450 / 450 400 / 400 Balance -240 / -240 1792.5 / 1792.5 General: Alert, Oriented x3, Cooperative, - - obese HEENT: Atraumatic, PERRLA, EOMI, Normocephalic Neck: Supple, No JVD, Negative Carotid Bruits Lungs: Clear to auscultation, Normal air movement Cardiovascular: Regular rate, No murmurs Abdomen: Bowel Sounds Present, Soft, Non Tender Extremities: No edema, Capillary Refill Less than 3 Seconds Skin: No rashes, No breakdown Musculoskeletal: No Tenderness to Palpation of Joints or Extremities Neurological: Cranial nerves II-XII grossly intact Psych/Mental Status: Normal Affect, Appropriate, Alert and oriented to time, place, person, mood and affect Laboratory Results 08/25/20 22:35: POC Glucose 89 08/26/20 03:21: POC Glucose 99 08/26/20 04:00: WBC 10.3, RBC 3.83 L, Hgb 11.4 L, Hct 34.9 L, MCV 91.1, MCH 29.8, MCHC 32.7, RDW Std Deviation 49.1 H, RDW Coeff of Rob 14.6, Plt Count 229, MPV 9.0, Immature Gran % (Auto) 0.600, Neut % (Auto) 73.9 H, Lymph % (Auto) 15.6 L, Dawson % (Auto) 6.1, Eos % (Auto) 3.1, Baso % (Auto) 0.7, Absolute Neuts (auto) 7.6, Absolute Lymphs (auto) 1.61, Nucleated RBC % 0 08/26/20 04:00: Sodium 139, Potassium 3.1 L, Chloride 106, Carbon Dioxide 27.0, Anion Gap 6, BUN 14, Creatinine 0.98, Estim Creat Clear Calc 52.69, Est GFR (MDRD) Af Amer 72, Est GFR (MDRD) Non-Af 60, BUN/Creatinine Ratio 14.3, Glucose 91, Calcium 7.8 L, Phosphorus 3.3, Magnesium 1.8, Total Bilirubin 0.50, AST 18, ALT 18, Alkaline Phosphatase 72, Total Protein 4.5 L, Albumin 2.2 L, Globulin 2.3, Albumin/Globulin Ratio 1.0 08/26/20 05:33: POC Glucose 81 Current Medications Acetaminophen (Acetaminophen 325 Mg Tablet) 650 mg PO Q6H PRN PRN PRN Reason: Pain Score 1-10/Temp > 100.7 F Last Admin: 08/26/20 09:21 Dose: 650 mg Documented by: Albuterol Sulfate (Albuterol 2.5 Mg/3 Ml Vial.Neb.) 2.5 mg INHALATION Q2H PRN PRN PRN Reason: Shortness of Breath/Wheezing Dextrose (Dextrose 50%-Water 25 Gm/50 Ml Disp.Syrin) 0 gm IV X1 PRN; Protocol PRN Reason: Hypoglycemia Enoxaparin Sodium (Enoxaparin 40 Mg/0.4 Ml Syringe) 40 mg SC DAILY COUNTS INCLUDE 234 BEDS AT THE [facility] Last Admin: 08/26/20 10:36 Dose: 40 mg Documented by: Glucagon (Glucagon 1 Mg/Ml Syringe) 1 mg IM .X1 PRN PRN Reason: Hypoglycemia Hydromorphone HCl (Hydromorphone 1 Mg/Ml Syringe) 1 mg IV Q4H PRN PRN PRN Reason: Pain Score 6-10 Piperacillin Sod/Tazobactam (Sod 3.375 gm/ Sodium Chloride) 50 mls @ 12.5 mls/hr IV Q8 COUNTS INCLUDE 234 BEDS AT THE [facility] Last Infusion: 08/26/20 09:00 Dose: 0 mls/hr Documented by: Pantoprazole Sodium 40 mg/ (Sodium Chloride) 110 mls @ 330 mls/hr IV Q24 SANTOS Last Admin: 08/26/20 10:35 Dose: 330 mls/hr Documented by: Sodium Chloride () 250 mls @ 15 mls/hr IV .[id number] PRN PRN Reason: Saline Flush Sodium Chloride () 250 mls @ 15 mls/hr IV .[id number] PRN PRN Reason: Additional IVPB Infusion Lactated Ringer's () 1,000 mls @ 150 mls/hr IV .Q6H40M COUNTS INCLUDE 234 BEDS AT THE [facility] Last Infusion: 08/26/20 07:09 Dose: 150 mls/hr Documented by: Insulin Glargine (Insulin Glargine 100 Units/Ml Pen) 8 units SC QHS COUNTS INCLUDE 234 BEDS AT THE [facility] Last Admin: 08/25/20 22:36 Dose: Not Given Documented by: Insulin Human Lispro (Insulin Lispro 100 Unit/Ml Insuln.Pen) 0 unit SC Q6 COUNTS INCLUDE 234 BEDS AT THE [facility]; Protocol Last Admin: 08/26/20 05:34 Dose: Not Given Documented by: Lactobacillus Acidophilus (Lactobacillus Acidophilus) 1 tablet PO BID SANTOS Last Admin: 08/26/20 10:35 Dose: 1 tablet Documented by: Melatonin (Melatonin 3 Mg Tablet) 3 mg PO QHS PRN PRN PRN Reason: INSOMNIA Last Admin: 08/25/20 23:24 Dose: 3 mg Documented by: Morphine Sulfate (Morphine 2 Mg/Ml Syringe) 2 mg IV Q3H PRN PRN PRN Reason: Pain Score 4-5 Last Admin: 08/25/20 21:50 Dose: 2 mg Documented by: Nitroglycerin (Nitroglycerin (Inpatient Use) 0.4 Mg Tab.Subl) 0.4 mg SL Q5M PRN PRN Reason: CARDIAC/CHEST PAIN Prochlorperazine Edisylate (Prochlorperazine 10 Mg/2 Ml Vial) 5 mg IV Q4H PRN PRN PRN Reason: Breakthrough nausea/vomiting Sodium Chloride (0.9% Saline Lock 10 Ml Syringe) 10 - 40 ml IV UD PRN PRN Reason: SALINE FLUSH Last Admin: 08/26/20 05:36 Dose: 10 ml Documented by: STROKE Vital Signs/Narrative: Vital Signs Temp Pulse Resp BP Pulse Ox 08/26/20 09:25 80 08/26/20 09:04 98.2 F 83 18 119/49 L 96 08/26/20 07:25 91 Medical Necessity - Tobacco Use Smoking Status: Current every day smoker Tobacco Use: Cigarettes Assessment/Plan All Active Problems Left-sided colitis (Acute) #Severe sepsis due to left sided colitis abdominal pain is much better now. being hydrated with IVF on IV zosyn. has no leukocytosis. Patient requesting for food, so we will start clear liquid diet and monitor for now. Stool for enteric pathogen and C. difficile pending. #Hypokalemia: K is 3.1. Will replace and monitor #Hyperlipidemia: On statin #Hypertension: On hydrochlorothiazide and lisinopril. #GERD: On PPI #Type 2 diabetes mellitus: On Lantus 8 units nightly. Insulin sliding scale. Accu-Cheks AC at bedtime. DVT prophylaxis: lovenox Inpatient E&M: 40143 Subs Hosp L2
--- NOTE | 2020-08-26 11:35 | CASEMGMT ---
RN CM Face to Face with patient for initial transition planning/care coordination assessment. RN CM introduced self and role at [facility]. Patient sitting in chair, alert and oriented. Patient willing to participate in assessment and is able to answer all questions appropriately. Care providers, pharmacy, and demographics verified. Patient wishes to discharge home, denies need for home health at this time. Patient states she has no further needs or concerns at this time. CM to follow for discharge planning needs that may arise. PCP: Skye Specialists: Lasha Conn Pref[facility]acy: [facility] Insurance: [facility] [place] Pres[place] Benefit: yes Living Will/HPOA: none LNOK: Living Arrangements: Patient lives with in a 1 story home with 13 steps and railing. Patient states she is independent and able to ambulate stairs. Transportation: self/ DME/HHC: Patient has raised toilet, cane, and grab bars at home. Patient denies previous HHC. Disposition Plan: Patient to discharge home with family support and follow-up plans in place. Mary PAULINO, RN, CM
[2020-08-26 11:50] LABS: Bedside Glucose 126 mg/dL (70-110)
[2020-08-26] MEDS: oxyCODONE 5 MG Tablet PO ×2 (13:34→19:48)
[2020-08-26 17:31] LABS: Bedside Glucose 126 mg/dL (70-110)
[2020-08-26 23:31] LABS: Bedside Glucose 100 mg/dL (70-110)
[2020-08-27 01:11] VITALS: BP 131/77; PULSE 91; RESP 18; TEMP 36.9; O2SAT 94
[2020-08-27] MEDS: Morphine 2 MG/ML Syringe IV (01:14)
[2020-08-27] MEDS: MELATONIN 3 MG TABLET PO (01:15)
[2020-08-27] MEDS: 0.9% Saline Lock 10 ML Syringe IV (01:15)
[2020-08-27 06:03] VITALS: BP 133/76; PULSE 87; RESP 18; TEMP 36.6; O2SAT 95
[2020-08-27] MEDS: oxyCODONE 5 MG Tablet PO (06:08)
[2020-08-27 06:45] LABS: Bedside Glucose 107 mg/dL (70-110)
[2020-08-27 08:05] LABS: Absolute Neutrophil Count 4.3 X10^3/uL (2.0-7.7); Basophil# 0.06 X10^3/uL; Basophil% 0.9 % (0-1); Eosinophil# 0.28 X10^3/uL; Eosinophils% 4.4 % (0-5); Hematocrit 34.8 % (37-47); Hemoglobin 11.2 g/dL (12.0-15.0); Lymphocyte % 18.8 % (19-41); Mean Corp Hgb Conc 32.2 g/dL (32-36); Mean Corpuscular Hgb 29.2 pg (27.0-32.0); Mean Corpuscular Volume 90.9 fL (81-99); Mean Platelet Vol. 9.4 fl (6.2-12.0); Monocyte# 0.56 X10^3/uL; Monocyte% 8.8 % (0-10); NRBC Flagged by Analyzer 0 % (0-5); Neutrophil # 4.25 X10^3/uL (2.7-7.7); Neutrophil % 66.6 % (47-70); Platelet Count 245 K/mm3 (150-450); RBC Distribution Width CV 14.6 % (11.6-14.6); RBC Distribution Width SD 48.5 fl (35.1-43.9); Red Blood Count 3.83 M/mm3 (4.2-5.4); White Blood Count 6.4 K/mm3 (4.4-11.0)
[2020-08-27 08:34] LABS: Anion Gap 4 (5-15); BUN 6 mg/dL (7-18); Calcium,Total 8.4 mg/dL (8.5-10.1); Chloride 106 mmol/L (98-107); Creatinine, Serum 0.75 mg/dL (0.55-1.02); EST Glomerular Filtration Rate 81 mL/min (>60); Est Glom Filt Rate - Afr Amer 98 mL/min (>60); Estimated Creatinine Clearance 51.63 ml/min; Glucose 103 mg/dL (74-106); Potassium 3.4 mmol/L (3.5-5.1); Sodium Level 138 mmol/L (136-145)
[2020-08-27 09:59] VITALS: BP 153/65; PULSE 80; RESP 18; TEMP 36.7; O2SAT 97
--- NOTE | 2020-08-27 10:23 | DCINST_ITS ---
- Discharge Diagnoses Current Active Problems: Current Active and Chronic Problems Left-sided colitis (Acute) Diabetes mellitus type 2 in obese (Chronic) Fibromyalgia (Chronic) Hypertension (Chronic) GERD (gastroesophageal reflux disease) (Chronic) You will use the following diet at home:: Cardiac Your food should be the consistency of: Regular Your liquids should be the consistency of: Regular/Thin Discharge Activity: Return to Normal Activity Weight Bearing Status: Weight bearing as tolerated Instructions: ED Gastroenteritis, Bacterial (Adult) Allergies/Adverse Reactions: Allergies kiwi Allergy (Verified 08/25/20 21:08) Angioedema Medications to take at Discharge Atorvastatin Calcium [Lipitor] 20 mg PO DAILY 08/25/20 Cyclobenzaprine HCl 10 mg PO TID 08/25/20 Duloxetine HCl 60 mg PO DAILY 08/25/20 Gabapentin 600 mg PO TID 08/25/20 Hydrochlorothiazide [Hctz] 25 mg PO DAILY 08/25/20 Lisinopril 10 mg PO DAILY 08/25/20 Meloxicam 7.5 mg PO DAILY 08/25/20 Omeprazole [Prilosec] 20 mg PO BID 08/25/20 Propranolol HCl 20 mg PO TID 08/25/20 Potassium Chloride Oral Tablet [K-Dur] 20 meq PO DAILY #10 tab 08/27/20 The following prescriptions were given: Potassium Chloride Oral Tablet [K-Dur] 20 meq PO DAILY #10 tab Primary Care Physician: Kush Cheung DO [Primary Care Provider] - Please follow up with your Primary Care Physician in: 1-2 weeks Test Results: Test results from this visit will be discussed in further detail at your follow- up appointment, if applicable. Proposed Discharge Date: 08/27/20
--- NOTE | 2020-08-27 10:32 | PCM.DC.SUM ---
Discharge Date and Diagnosis - Problem List Patient Problems: Active and Suspected Problems Left-sided colitis (Acute) Date of Admission: 08/25/20 Date of Discharge: 08/27/20 - Primary Discharge Diagnosis Acute Problems: Active Problems Left-sided colitis (Acute) - Secondary Discharge Diagnosis Chronic Problems: Chronic Problems Diabetes mellitus type 2 in obese (Chronic) Fibromyalgia (Chronic) Hypertension (Chronic) GERD (gastroesophageal reflux disease) (Chronic) Hospital Course and Treatment none Operations: None Procedures: None Summary of Care Provided: The patient is a 69 year old F with a past medical history as outlined was admitted as a direct transfer from [facility] on 08/25/2020 with a complaint of acute onset abdominal pain which started in the lower quadrants and became generalized. also said patient had passed out for a few seconds with the first time being unwitnessed and the second time she passed out in the 's arms. She complained of nausea and had also had watery nonbloody diarrhea since the morning of admission. On admission CT of the abdomen done showed diffuse left-sided colitis from the transverse to the sigmoid colon which was thought to be either infectious, inflammatory or ischemic. Blood pressure was low at 80/60 but improved with IV fluid bolus. Lactic acid was initially 3.2 but trended down to 1.8. She has significant leukocytosis of 17,000 with left shift and chemistry showed creatinine of 1.04 and was otherwise normal. She was given IV vancomycin and Zosyn and blood cultures x2 were sent. Stool for C. difficile apparently sent at outside hospital. On admission in [facility], her diarrhea completely resolved abdominal pain completely resolved as well. Symptoms improved markedly and she was able to start on a diet and was advanced to regular diet and did very well. Count normalized to 6.4 with IV antibiotics. She remained stable and was discharged home on 08/27/2020. Colitis was therefore likely infectious as it resolved completely with antibiotics and diarrhea did not recur during this admission. She is to follow-up with her primary care doctor in 1 week. Patient seen and examined prior to discharge. She had no complaints. Review of symptoms otherwise negative. Labs and vitals reviewed. Home medication reviewed and reconciled. O/E: Vital Signs Temp Pulse Resp BP Pulse Ox 98.1 F 80 18 153/65 H 97 08/27/20 09:59 08/27/20 09:59 08/27/20 09:59 08/27/20 09:59 08/27/20 10:58 [] General: Alert, Oriented x3, Cooperative, - - obese HEENT: Atraumatic, PERRLA, EOMI, Normocephalic Neck: Supple, No JVD, Negative Carotid Bruits Lungs: Clear to auscultation, Normal air movement Cardiovascular: Regular rate, No murmurs Abdomen: Bowel Sounds Present, Soft, Non Tender Extremities: No edema, Capillary Refill Less than 3 Seconds Skin: No rashes, No breakdown Musculoskeletal: No Tenderness to Palpation of Joints or Extremities Neurological: Cranial nerves II-XII grossly intact Psych/Mental Status: Normal Affect, Appropriate, Alert and oriented to time, place, person, mood and affect Plan is for discharge home today Patient Problems: Active and Suspected Problems Left-sided colitis (Acute) - Physical Exam Vitals/I&O's: Vital Signs Temp Pulse Resp BP Pulse Ox 98.1 F 80 18 153/65 H 97 08/27/20 09:59 08/27/20 09:59 08/27/20 09:59 08/27/20 09:59 08/27/20 09:59 Oxygen Delivery Method Room Air Weight: 213 lb 6.4 oz Body Mass Index (BMI) 33.4 Intake and Output for Last 24 Hours 08/25/20 08/26/20 08/27/20 23:59 23:59 23:59 Intake Total 210 / 210 5892.5 / 5892.5 891.0 / 891.0 Output Total 450 / 450 3225 / 3225 300 / 300 Balance -240 / -240 2667.5 / 2667.5 591.0 / 591.0 Laboratory Results 08/26/20 11:42: POC Glucose 126 H 08/26/20 17:19: POC Glucose 126 H 08/26/20 23:04: POC Glucose 100 08/27/20 06:05: POC Glucose 107 08/27/20 07:51: WBC 6.4, RBC 3.83 L, Hgb 11.2 L, Hct 34.8 L, MCV 90.9, MCH 29.2, MCHC 32.2, RDW Std Deviation 48.5 H, RDW Coeff of Rob 14.6, Plt Count 245, MPV 9.4, Immature Gran % (Auto) 0.500, Neut % (Auto) 66.6, Lymph % (Auto) 18.8 L, [place] % (Auto) 8.8, Eos % (Auto) 4.4, Baso % (Auto) 0.9, Absolute Neuts (auto) 4.3, Absolute Lymphs (auto) 1.20, Nucleated RBC % 0 08/27/20 07:51: Sodium 138, Potassium 3.4 L, Chloride 106, Carbon Dioxide 28.0, Anion Gap 4 L, BUN 6 L, Creatinine 0.75, Estim Creat Clear Calc 51.63, Est GFR (MDRD) Af Amer 98, Est GFR (MDRD) Non-Af 81, BUN/Creatinine Ratio 8.0 L, Glucose 103, Calcium 8.4 L Current Medications Acetaminophen (Acetaminophen 325 Mg Tablet) 650 mg PO Q6H PRN PRN PRN Reason: Pain Score 1-10/Temp > 100.7 F Last Admin: 08/26/20 09:21 Dose: 650 mg Documented by: Albuterol Sulfate (Albuterol 2.5 Mg/3 Ml Vial.Neb.) 2.5 mg INHALATION Q2H PRN PRN PRN Reason: Shortness of Breath/Wheezing Dextrose (Dextrose 50%-Water 25 Gm/50 Ml Disp.Syrin) 0 gm IV X1 PRN; Protocol PRN Reason: Hypoglycemia Enoxaparin Sodium (Enoxaparin 40 Mg/0.4 Ml Syringe) 40 mg SC DAILY [facility] Last Admin: 08/27/20 10:04 Dose: Not Given Documented by: Glucagon (Glucagon 1 Mg/Ml Syringe) 1 mg IM .X1 PRN PRN Reason: Hypoglycemia Hydromorphone HCl (Hydromorphone 1 Mg/Ml Syringe) 1 mg IV Q4H PRN PRN PRN Reason: Pain Score 6-10 Piperacillin Sod/Tazobactam (Sod 3.375 gm/ Sodium Chloride) 50 mls @ 12.5 mls/hr IV Q8 [facility] Last Infusion: 08/27/20 10:00 Dose: Infused Documented by: Pantoprazole Sodium 40 mg/ (Sodium Chloride) 110 mls @ 330 mls/hr IV Q24 [facility] Last Admin: 08/27/20 10:04 Dose: Not Given Documented by: Sodium Chloride () 250 mls @ 15 mls/hr IV .[id number] PRN PRN Reason: Saline Flush Last Infusion: 08/27/20 10:09 Dose: Infused Documented by: Sodium Chloride () 250 mls @ 15 mls/hr IV .[id number] PRN PRN Reason: Additional IVPB Infusion Insulin Glargine (Insulin Glargine 100 Units/Ml Pen) 8 units SC QHS [facility] Last Admin: 08/26/20 23:05 Dose: Not Given Documented by: Insulin Human Lispro (Insulin Lispro 100 Unit/Ml Insuln.Pen) 0 unit SC Q6 [facility]; Protocol Last Admin: 08/27/20 06:08 Dose: Not Given Documented by: Lactobacillus Acidophilus (Lactobacillus Acidophilus) 1 tablet PO BID [facility] Last Admin: 08/27/20 10:04 Dose: 1 tablet Documented by: Melatonin (Melatonin 3 Mg Tablet) 3 mg PO QHS PRN PRN PRN Reason: INSOMNIA Last Admin: 08/27/20 01:15 Dose: 3 mg Documented by: Morphine Sulfate (Morphine 2 Mg/Ml Syringe) 2 mg IV Q3H PRN PRN PRN Reason: Pain Score 4-5 Last Admin: 08/27/20 01:14 Dose: 2 mg Documented by: Nitroglycerin (Nitroglycerin (Inpatient Use) 0.4 Mg Tab.Subl) 0.4 mg SL Q5M PRN PRN Reason: CARDIAC/CHEST PAIN Oxycodone HCl (Oxycodone 5 Mg Tablet) 5 - 10 mg PO Q6H PRN PRN PRN Reason: Pain Score 6-10 Last Admin: 08/27/20 06:08 Dose: 10 mg Documented by: Prochlorperazine Edisylate (Prochlorperazine 10 Mg/2 Ml Vial) 5 mg IV Q4H PRN PRN PRN Reason: Breakthrough nausea/vomiting Sodium Chloride (0.9% Saline Lock 10 Ml Syringe) 10 - 40 ml IV UD PRN PRN Reason: SALINE FLUSH Last Admin: 08/27/20 01:15 Dose: 10 ml Documented by: Discharge Diet: Low fat/ Low Cholesterol Discharge Activity: Return to Normal Activity Weight Bearing Status: Weight bearing as tolerated Home Medications: Medications to take at Discharge Atorvastatin Calcium [Lipitor] 20 mg PO DAILY 08/25/20 Cyclobenzaprine HCl 10 mg PO TID 08/25/20 Duloxetine HCl 60 mg PO DAILY 08/25/20 Gabapentin 600 mg PO TID 08/25/20 Hydrochlorothiazide [Hctz] 25 mg PO DAILY 08/25/20 Lisinopril 10 mg PO DAILY 08/25/20 Meloxicam 7.5 mg PO DAILY 08/25/20 Omeprazole [Prilosec] 20 mg PO BID 08/25/20 Propranolol HCl 20 mg PO TID 08/25/20 Potassium Chloride Oral Tablet [K-Dur] 20 meq PO DAILY #10 tab 08/27/20 Following Prescriptions Were Given to Patient: Potassium Chloride Oral Tablet [K-Dur] 20 meq PO DAILY #10 tab Primary Care Physician: Kush Cheung DO [Primary Care Provider] - Please follow up with your Primary Care Physician in: 1-2 weeks Patient Instructions: ED Gastroenteritis, Bacterial (Adult) Disposition: Home Minutes spent on discharge:: 40 Patient Condition:: Stable Medical Necessity - Tobacco Use Smoking Status: Current every day smoker Tobacco Use: Cigarettes Meaningful Use Info Meaningful Use Diagnoses (Choose all that apply): None applicable Inpatient E&M: 24072 [facility]
[2020-08-27 10:58] VITALS: O2SAT 97
== END 2020-08-27 12:00 | disposition home or self-care (01) | DRG 872 ==
PROVIDERS: Internal Medicine; Admitting Provider Family Medicine; PCP Family Medicine; Visit Provider Student in an Organized Health Care Education/Training Program
DX: A41.9 Sepsis, unspecified organism (principal); A09 Infectious gastroenteritis and colitis, unspecified; K51.50 Left sided colitis without complications; E11.9 Type 2 diabetes mellitus without complications; I10 Essential (primary) hypertension; K21.9 Gastro-esophageal reflux disease without esophagitis; M79.7 Fibromyalgia; E66.9 Obesity, unspecified; Z68.33 Body mass index [BMI] 33.0-33.9, adult; F17.210 Nicotine dependence, cigarettes, uncomplicated; E87.6 Hypokalemia; E78.5 Hyperlipidemia, unspecified; Z79.899 Other long term (current) drug therapy; Z79.4 Long term (current) use of insulin
CPT/HCPCS: 36415; 80048; 80053; 82962; 83735; 84100; 85025; 93005; 97161; 97166; 97802; 99251; 99406; J7050; J7120; A4216; G0463

== ENCOUNTER → 2021-03-14 15:08 | Outpatient (CLI) | payer MEDICARE, OTHER, SELFPAY ==
[2021-03-14 17:47] LABS: Absolute Lymphocyte Count 0.94 X10^3/uL (0.83-4.51); Absolute Neutrophil Count 7.4 X10^3/uL (2.0-7.7); Basophil# 0.06 X10^3/uL; Basophil% 0.7 % (0-1); Eosinophil# 0.02 X10^3/uL; Eosinophils% 0.2 % (0-5); Hematocrit 45.6 % (37-47); Hemoglobin 14.4 g/dL (12.0-15.0); Lymphocyte # 0.94 X10^3/ul (0.83-4.51); Lymphocyte % 10.6 % (19-41); Mean Corp Hgb Conc 31.6 g/dL (32-36); Mean Corpuscular Hgb 29.1 pg (27.0-32.0); Mean Corpuscular Volume 92.3 fL (81-99); Mean Platelet Vol. 9.9 fl (6.2-12.0); Monocyte# 0.42 X10^3/uL; Monocyte% 4.8 % (0-10); NRBC Flagged by Analyzer 0 % (0-5); Neutrophil # 7.35 X10^3/uL (2.7-7.7); Neutrophil % 83.1 % (47-70); Platelet Count 329 K/mm3 (150-450); RBC Distribution Width CV 15.9 % (11.6-14.6); Red Blood Count 4.94 M/mm3 (4.2-5.4); White Blood Count 8.8 K/mm3 (4.4-11.0)
[2021-03-14 18:11] LABS: ALB/GLOB Ratio 0.8 RATIO (0.9-2.4); AST(SGOT) 13 U/L (15-37); Alanine Aminotransfer ALT/SGPT 32 U/L (13-56); Albumin, Serum 3.2 g/dL (3.2-5.0); Alkaline Phosphatase 124 U/L (45-117); Anion Gap 8 (5-15); BUN 12 mg/dL (7-18); BUN/Creat Ratio 12.4 RATIO (10-20); Calcium,Total 9.1 mg/dL (8.5-10.1); Chloride 102 mmol/L (98-107); Creatinine, Serum 0.97 mg/dL (0.55-1.02); EST Glomerular Filtration Rate 61 mL/min (>60); Est Glom Filt Rate - Afr Amer 73 mL/min (>60); Glucose 161 mg/dL (74-106); Protein, Total 7.2 g/dL (6.4-8.2); Sodium Level 140 mmol/L (136-145)
== END ==
PROVIDERS: PCP Family Medicine; Referring Provider Internal Medicine Rheumatology; Visit Provider Internal Medicine Rheumatology
DX: L40.59 Other psoriatic arthropathy (principal); L40.8 Other psoriasis; M79.7 Fibromyalgia; M17.0 Bilateral primary osteoarthritis of knee; M48.061 Spinal stenosis, lumbar region without neurogenic claudication; M48.02 Spinal stenosis, cervical region; M47.814 Spondylosis without myelopathy or radiculopathy, thoracic region; I10 Essential (primary) hypertension; E11.9 Type 2 diabetes mellitus without complications; I73.9 Peripheral vascular disease, unspecified; Z79.899 Other long term (current) drug therapy
CPT/HCPCS: 36415; 80053; 85025

== ENCOUNTER 2021-09-08 14:56 | Outpatient (CLI) | payer MEDICARE, OTHER, SELFPAY ==
--- NOTE | 2021-09-08 15:20 | CT_ITS ---
STUDY: CT SOFT TISSUE NECK WITH CONTRAST ENHANCEMENT OF 1525 HOURS ON 09/08/2021 REASON FOR EXAM: 70-year-old female with a right parotid mass. RADIATION DOSAGE (If Supplied By Facility): CTDIvol = ( 17.5 ) mGy, DLP = ( 507.02 ) mGycm TECHNIQUE: The patient was scanned in a multi-detector CT scanner. High resolution transaxial imaging was performed following intravenous administration of IV 75mL [id number]-370. Sagittal and coronal images were reconstructed. Individualized dose optimization techniques were used for this CT. COMPARISON: None. FINDINGS: Enlargement of the right thyroid lobe with multiple mixed cystic/solid masses, the largest measuring 1.2 cm in diameter in the central right thyroid lobe. The parotid glands are generous in size, but have a normal appearance bilaterally. There is no evidence of parotid mass lesions. No evidence of a parotitis. The submandibular glands are asymmetric, but are without evidence of mass lesions. No evidence of inflammatory changes of the submandibular glands. The masseter muscles are normal. There are no findings of lymphadenopathy in the neck. The dominant right jugular vein. The common carotid arteries, carotid bulbs, internal and external carotid arteries have normal appearance. The vertebral arteries are equally dominant and are without abnormalities. There is no evidence of cystic or solid masses in the neck region except for those in the right thyroid lobe.. Normal mandible without osseous lytic or sclerotic lesions.. There is no evidence of fractures or dislocations. There is no evidence of mandibular abscesses. Mastoid sinuses are well developed and aerated. CT/Soft Tissue Neck WITH Contrast IMPRESSION: 1. Generous, but normal-sized parotid glands without mass lesions or inflammatory changes. 2. Asymmetric submandibular glands without mass lesions or inflammatory changes. 3. Enlargement of the right thyroid lobe with multiple mixed cystic/solid masses, the largest measuring 1.2 cm in diameter in the central right thyroid lobe. 4. No evidence of neck lymphadenopathy. 5. Normal mandible and masseter muscles. 5. No evidence of a cystic or solid mass lesions in the neck region. 6. No mandibular fractures or dislocations. 7. No mandibular abscesses. Electronically Signed: Cliff Manuel MD at 1:22 EDT ,
[2021-09-08 15:26] LABS: CREATININE FINGERSTICK 1.3 mg/dL (0.55-1.02)
== END 2021-09-08 23:59 | disposition home or self-care (01) ==
LOC: CT 14:59
PROVIDERS: PCP Family Medicine; Referring Provider Otolaryngology; Visit Provider Otolaryngology
DX: D37.030 Neoplasm of uncertain behavior of the parotid salivary glands (principal)
CPT/HCPCS: 70491

== ENCOUNTER → 2021-10-13 | Outpatient (CLI) | payer MEDICARE, OTHER, SELFPAY ==
--- NOTE | 2021-10-13 14:48 | US_ITS ---
STUDY: THYROID ULTRASOUND REASON FOR EXAM: Female, 70 years old. Thyroid nodule. TECHNIQUE: Ultrasound evaluation of the thyroid was performed with real-time and static rivera-scale imaging. COMPARISON: Comparison is made with prior CT scan of the soft tissues of the neck dated 09/08/2021. FINDINGS: RIGHT LOBE: The right lobe of the thyroid gland is mildly enlarged and measures 5 cm x 2.2 cm x 2.7 cm. There is a homogeneous echotexture. 4 hypoechoic solid nodules are seen throughout the lobe. The largest measures 1.5 cm x 1.4 cm x 1.2 cm. A similar-appearing nodule is also seen measuring 1.3 cm x 1.1 cm x 0.9 cm. LEFT LOBE: The left lobe of the thyroid gland is enlarged and measures 5.4 cm x 1.9 cm x 1.7 cm. There is a homogeneous echotexture. 3 nodules are seen. The largest solid and cystic nodule measures 4 mm x 4 mm x 3 mm. ISTHMUS: The isthmus measures 4 mm. The regional lymph nodes are normal. US/Thyroid IMPRESSION: Enlargement of both lobes of the thyroid gland. There are 2 dominant solid and cystic nodules in the right lobe as described. The largest measures 1.5 cm x 1.4 cm by 1.2 cm. Biopsy recommended. Electronically Signed: Marvin Sheikh MD at 9:23 EDT ,
== END | disposition home or self-care (01) ==
LOC: US 14:46
PROVIDERS: PCP Family Medicine; Referring Provider Otolaryngology; Visit Provider Otolaryngology
DX: E04.1 Nontoxic single thyroid nodule (principal)
CPT/HCPCS: 76536

== ENCOUNTER → 2021-10-17 | Outpatient (CLI) | payer MEDICARE, OTHER, SELFPAY ==
[2021-10-17 15:30] LABS: Absolute Lymphocyte Count 1.83 X10^3/uL (0.83-4.51); Basophil% 1.4 % (0-1); Eosinophil# 0.33 X10^3/uL; Eosinophils% 4.7 % (0-5); Hemoglobin 15.1 g/dL (12.0-15.0); Lymphocyte # 1.83 X10^3/ul (0.83-4.51); Lymphocyte % 26.2 % (19-41); Mean Corp Hgb Conc 32.1 g/dL (32-36); Mean Corpuscular Hgb 28.9 pg (27.0-32.0); Mean Platelet Vol. 9.6 fl (6.2-12.0); Monocyte# 0.67 X10^3/uL; Monocyte% 9.6 % (0-10); NRBC Flagged by Analyzer 0 % (0-5); Neutrophil # 4.04 X10^3/uL (2.7-7.7); Neutrophil % 57.8 % (47-70); Platelet Count 374 K/mm3 (150-450); RBC Distribution Width CV 14.8 % (11.6-14.6); RBC Distribution Width SD 49.1 fl (35.1-43.9); Red Blood Count 5.22 M/mm3 (4.2-5.4)
[2021-10-17 15:50] LABS: Free T3 2.9 pg/mL (2.18-3.98); T4 Total, Thyroxin 10.4 ug/dL (4.8-13.9); Thyroid Stim Hormone (TSH) 1.17 uIU/mL (0.358-3.74)
== END | disposition home or self-care (01) ==
LOC: PAVLAB 15:07
PROVIDERS: PCP Family Medicine; Referring Provider Surgery; Visit Provider Surgery
DX: E04.1 Nontoxic single thyroid nodule (principal)
CPT/HCPCS: 36415; 84436; 84443; 84481; 85025

== ENCOUNTER → 2022-04-05 | Outpatient (CLI) | payer MEDICARE, OTHER, SELFPAY ==
[2022-04-05 14:25] LABS: Vitamin B12 417 pg/mL (211-911); Vitamin D,25 Hydroxy 24.1 ng/mL
[2022-04-05 14:30] LABS: ALB/GLOB Ratio 0.9 RATIO (0.9-2.4); AST(SGOT) 17 U/L (15-37); Alanine Aminotransfer ALT/SGPT 24 U/L (13-56); Albumin, Serum 3.5 g/dL (3.2-5.0); Alkaline Phosphatase 113 U/L (45-117); Anion Gap 10 (5-15); BUN 14 mg/dL (7-18); BUN/Creat Ratio 11.9 RATIO (10-20); Calcium,Total 9.6 mg/dL (8.5-10.1); Chloride 103 mmol/L (98-107); Creatinine, Serum 1.18 mg/dL (0.55-1.02); EST Glomerular Filtration Rate 48 mL/min (>60); Est Glom Filt Rate - Afr Amer 58 mL/min (>60); Ferritin 27 ng/mL (8-252); Glucose 115 mg/dL (74-106); Iron 45 ug/dL (50-170); Potassium 3.7 mmol/L (3.5-5.1); Protein, Total 7.5 g/dL (6.4-8.2); Sodium Level 137 mmol/L (136-145); Thyroid Stim Hormone (TSH) 0.94 uIU/mL (0.358-3.74)
== END | disposition home or self-care (01) ==
LOC: BFHLAB 13:48
PROVIDERS: PCP Family Medicine; Visit Provider Family Medicine
DX: R53.83 Other fatigue (principal); R42 Dizziness and giddiness; E87.6 Hypokalemia; D50.9 Iron deficiency anemia, unspecified; E55.9 Vitamin D deficiency, unspecified; R53.1 Weakness
CPT/HCPCS: 36415; 80053; 82306; 82607; 82728; 83540; 84443; 85652

== ENCOUNTER → 2022-05-03 | Outpatient (CLI) | payer MEDICARE, OTHER, SELFPAY ==
[2022-05-03 13:14] LABS: Amphetamine Urine VISTA NEGATIVE (<1000 ng/mL); Barbiturate Urine VISTA NEGATIVE (< 200 ng/mL); Benzodiazepine Urine VISTA NEGATIVE (< 200 ng/mL); Cocaine Urine VISTA NEGATIVE (< 300 ng/mL); Ecstacy Urine VISTA NEGATIVE (< 500 ng/mL); Methadone Urine VISTA NEGATIVE (< 300 ng/mL); PCP Urine VISTA NEGATIVE (< 25 ng/mL); THC Urine VISTA NEGATIVE (< 50 ng/mL); Vista UDS pH Range 6
== END | disposition home or self-care (01) ==
LOC: LAB 12:05
PROVIDERS: PCP Family Medicine; Visit Provider Anesthesiology Pain Medicine
DX: F11.20 Opioid dependence, uncomplicated (principal)
CPT/HCPCS: 80307

== ENCOUNTER → 2022-06-21 | Outpatient (CLI) | payer MEDICARE, OTHER, SELFPAY ==
--- NOTE | 2022-06-21 14:55 | VDLE_ITS ---
Reason For Study: edema RIGHT LEFT CFV is compressible, spontaneous, phasic, CFV is compressible, spontaneous, phasic, competent and demonstrates normal competent, and demonstrates normal augmentation. augmentation. FV is compressible, spontaneous, phasic, FV is compressible, spontaneous, phasic, competent and demonstrates normal competent and demonstrates normal augmentation. augmentation. POP V is compressible, spontaneous, phasic, POP V is compressible, spontaneous, phasic, competent and demonstrates normal competent and demonstrates normal augmentation. augmentation. T/P Trunk is compressible. T/P Trunk is compressible. PTV is compressible. PTV is compressible. RT PerV is compressible. LT PerV is compressible. SFJ is INCOMPETENT and measures .56 cm. SFJ is competent and measures .52 cm. GSV proximal thigh measures .42 x .43 cm. GSV proximal thigh measures .46 x .48 cm. GSV at knee measures .22 x .24 cm. GSV at knee measures .29 x .3 cm. GSV INCOMPETENT throughout for greater than GSV above knee is competent. 0.5 seconds. GSV below knee is INCOMPETENT for greater SSV proximal calf is competent and than 0.5 seconds. measures .26 x .3 cm. SSV proximal calf is competent and ASV mid thigh is INCOMPETENT for greater than measures .12 x .12 cm. 0.5 seconds and measures .3 x .3 cm. ASV proximal calf is INCOMPETENT for greater ASV mid calf is INCOMPETENT for greater than than 0.5 seconds and measures .24 x .27 cm. 0.5 seconds and measures .13 x .16 cm. ASV at knee is INCOMPETENT for greater than 0.5 seconds and measures .14 x .13 cm. Procedure This is a venous duplex using B-mode, color flow and spectral Doppler. Exam performed in department. The exam was diagnostic. A preliminary report was called and/or faxed to Dr. Cheung. VL/Venous Duplex US - Javi Extrem Interpretation Summary Deep veins of the lower extremities are bilaterally patent and compressible seg mentally. There is no evidence of deep vein thrombosis on either side. Valvular competence appears in tact within the proximal deep venous systems bilaterally. The great saphenous veins appear bila terally patent and compressible segmentally. The right sapheno-femoral junction is incompetent . T he left sapheno- femoral junction is competent . The right great saphenous vein appears segmenta lly incompetent. The left great saphenous vein appears competent above the knee. The left great saph enous vein appears incompetent below the knee. Small saphenous veins are patent and competent bila terally. Accessory saphenous veins in the right mid-thigh, mid-calf, and knee level are incompeten t. The accessory saphenous vein in the left proximal calf is incompetent. Ordering Physician: Kush Cheung Performed By: Bradley Martinez, RVT
== END | disposition home or self-care (01) ==
LOC: CVS 14:53
PROVIDERS: PCP Family Medicine; Referring Provider Family Medicine; Visit Provider Family Medicine
DX: I87.2 Venous insufficiency (chronic) (peripheral) (principal); R60.0 Localized edema
CPT/HCPCS: 93970

== ENCOUNTER → 2022-09-18 | Outpatient (CLI) | payer MEDICARE, OTHER, SELFPAY ==
[2022-09-18 16:55] LABS: Amphetamine Urine VISTA NEGATIVE (<1000 ng/mL); Barbiturate Urine VISTA NEGATIVE (< 200 ng/mL); Benzodiazepine Urine VISTA NEGATIVE (< 200 ng/mL); Cocaine Urine VISTA NEGATIVE (< 300 ng/mL); Ecstacy Urine VISTA NEGATIVE (< 500 ng/mL); Methadone Urine VISTA NEGATIVE (< 300 ng/mL); PCP Urine VISTA NEGATIVE (< 25 ng/mL); THC Urine VISTA NEGATIVE (< 50 ng/mL); Vista UDS pH Range 6
== END | disposition home or self-care (01) ==
LOC: LAB 16:09
PROVIDERS: PCP Family Medicine; Referring Provider Anesthesiology Pain Medicine; Visit Provider Anesthesiology Pain Medicine
DX: F11.20 Opioid dependence, uncomplicated (principal)
CPT/HCPCS: 80307

== ENCOUNTER → 2022-10-13 | Outpatient (CLI) | payer MEDICARE, OTHER, SELFPAY ==
--- NOTE | 2022-10-13 10:05 | US_ITS ---
INDICATION: Thyroid nodules EXAMINATION: Ultrasound US Thyroid (eg thyroid, parathyroid, parotid) TECHNIQUE: French scale and color doppler imaging was performed of the thyroid gland. COMPARISON: 10/13/2021, 10/17/2021 FINDINGS: RIGHT THYROID LOBE: 4.6 x 2.3 x 1.8 cm. Heterogeneous echotexture with normal vascularity. 1.5 x 1.5 x 1.3 cm mixed cystic and solid nodule. 1.5 x 1.2 x 0.8 cm mixed cystic and solid nodule. Other nodules measure up to 1 cm. LEFT THYROID LOBE: 4.2 x 1.6 x 1.7 cm. Heterogeneous echotexture with normal vascularity. 4 mm mixed cystic and solid nodule. ISTHMUS: 2.1 mm. No thyroid nodules are present. US/Thyroid IMPRESSION: No significant change in TR2 thyroid nodules compared to 10/13/2021. Electronically Signed: Andi Pfeiffer MD at 16:28 EDT ,
== END | disposition home or self-care (01) ==
PROVIDERS: PCP Family Medicine; Referring Provider Surgery; Visit Provider Surgery
DX: E04.2 Nontoxic multinodular goiter (principal)
CPT/HCPCS: 76536

== ENCOUNTER → 2023-05-22 | Outpatient (CLI) | payer MEDICARE, OTHER, SELFPAY ==
[2023-05-22 12:23] LABS: Absolute Lymphocyte Count 1.17 X10^3/uL (0.83-4.51); Absolute Neutrophil Count 7.3 X10^3/uL (2.0-7.7); Basophil# 0.05 X10^3/uL; Basophil% 0.6 % (0-1); Eosinophil# 0.01 X10^3/uL; Eosinophils% 0.1 % (0-5); Hematocrit 45.8 % (37-47); Hemoglobin 14.4 g/dL (12.0-15.0); Lymphocyte # 1.17 X10^3/ul (0.83-4.51); Lymphocyte % 12.9 % (19-41); Mean Corp Hgb Conc 31.4 g/dL (32-36); Mean Corpuscular Hgb 29.1 pg (27.0-32.0); Mean Corpuscular Volume 92.5 fL (81-99); Monocyte# 0.49 X10^3/uL; Monocyte% 5.4 % (0-10); NRBC Flagged by Analyzer 0 % (0-5); Neutrophil # 7.29 X10^3/uL (2.7-7.7); Neutrophil % 80.3 % (47-70); Platelet Count 279 K/mm3 (150-450); RBC Distribution Width CV 14.8 % (11.6-14.6); RBC Distribution Width SD 50.5 fl (35.1-43.9); Red Blood Count 4.95 M/mm3 (4.2-5.4); White Blood Count 9.1 K/mm3 (4.4-11.0)
[2023-05-22 12:48] LABS: Vitamin D,25 Hydroxy 76.7 ng/mL
[2023-05-22 12:52] LABS: ALB/GLOB Ratio 0.8 RATIO (0.9-2.4); AST(SGOT) 19 U/L (15-37); Alanine Aminotransfer ALT/SGPT 24 U/L (13-56); Albumin, Serum 3.4 g/dL (3.2-5.0); Alkaline Phosphatase 144 U/L (45-117); Anion Gap 6 (5-15); BUN 14 mg/dL (7-18); BUN/Creat Ratio 13.6 RATIO (10-20); Calcium,Total 9.8 mg/dL (8.5-10.1); Chloride 109 mmol/L (98-107); Cholesterol 195 mg/dL (200); Creatinine, Serum 1.03 mg/dL (0.55-1.02); EST Glomerular Filtration Rate 56 mL/min (>60); Est Glom Filt Rate - Afr Amer 68 mL/min (>60); Glucose 143 mg/dL (74-106); High Density Lipoprotein 73 mg/dL; Potassium 4.3 mmol/L (3.5-5.1); Protein, Total 7.4 g/dL (6.4-8.2); Sodium Level 136 mmol/L (136-145); Triglycerides 130 mg/dL; Very Low Density Lipoprotein 26 mg/dL (5-40)
[2023-05-22 13:51] LABS: Hemoglobin A1c 6.4 % (3.8-5.6)
== END | disposition home or self-care (01) ==
LOC: BFHLAB 10:26
PROVIDERS: PCP Family Medicine; Visit Provider Family Medicine
DX: T45.2X Poisoning by, adverse effect of and underdosing of vitamins (principal); E11.9 Type 2 diabetes mellitus without complications; I10 Essential (primary) hypertension; E78.5 Hyperlipidemia, unspecified; E55.9 Vitamin D deficiency, unspecified
CPT/HCPCS: 36415; 80053; 80061; 82306; 83036; 85025

== ENCOUNTER → 2023-09-12 | Outpatient (CLI) | payer MEDICARE, OTHER, SELFPAY | END | disposition home or self-care (01) | LOC: SL 13:47 | PROVIDERS: PCP Family Medicine; Referring Provider Family Medicine; Visit Provider Family Medicine | DX: G47.10 Hypersomnia, unspecified (principal); G47.30 Sleep apnea, unspecified | CPT/HCPCS: 95806 ==

== ENCOUNTER → 2023-10-10 | Outpatient (CLI) | payer MEDICARE, OTHER, SELFPAY ==
[2023-10-10] MEDS: Zolpidem Tartrate 5 MG Tablet PO (21:35)
== END | disposition home or self-care (01) ==
LOC: SL 19:57
PROVIDERS: PCP Family Medicine; Referring Provider Family Medicine; Visit Provider Family Medicine
DX: G47.10 Hypersomnia, unspecified (principal); G47.30 Sleep apnea, unspecified
CPT/HCPCS: 95810

== ENCOUNTER → 2023-10-16 | Outpatient (CLI) | payer MEDICARE, OTHER, SELFPAY ==
--- NOTE | 2023-10-16 16:03 | US_ITS ---
STUDY: THYROID ULTRASOUND REASON FOR EXAM: Female, 72 years old. 1 year follow up TECHNIQUE: Ultrasound evaluation of the thyroid was performed with real-time and static rivera-scale imaging. COMPARISON: 10/13/2022 FINDINGS: RIGHT LOBE: The right lobe of the thyroid gland measures 5.0 x 2.0 x 2.2 cm. There is a heterogeneous echotexture. Nodule 1: No change in the 14 x 8 x 13 mm mixed cystic and solid hypoechoic wider than tall ill-defined marginated nodule with no echogenic foci (TR 3) in the anterior right lobe consistent with an adenoma. Nodule 2: No change in a 9 x 5 x 6 mm cystic anechoic wider than tall ill-defined margin nodule and no echogenic foci (TR 1) in the posterior right lobe consistent with a colloid cyst. Nodule 3: Decreased size (12 x 10 x 12 mm from 15 x 13 x 15 mm) (mixed cystic and solid hypoechoic wider than tall ill-defined marginated nodule with punctate echogenic foci (TR 4) in the posterior right lobe and follow-up ultrasound is recommended in one year. The LEFT LOBE: The left lobe of the thyroid gland measures 5.1 x 1.5 x 1.9 cm. There is a heterogeneous echotexture. Multiple tiny (less than 5 mm) solid and cystic nodules consistent with adenomas or colloid cyst. ISTHMUS: The isthmus measures 2 mm thick. . The regional lymph nodes are normal. US/Thyroid IMPRESSION: Thyroiditis with multiple nodules and follow-up ultrasound is recommended in 1 year. Electronically Signed: Jeffery Rasmussen MD at 23:16 EDT ,
== END | disposition home or self-care (01) ==
PROVIDERS: PCP Family Medicine; Referring Provider Surgery; Visit Provider Surgery
DX: E04.1 Nontoxic single thyroid nodule (principal)
CPT/HCPCS: 76536

== ENCOUNTER → 2024-01-14 | Outpatient (CLI) | payer MEDICARE, OTHER, SELFPAY ==
[2024-01-14 18:41] LABS: ALB/GLOB Ratio 0.9 RATIO (0.9-2.4); AST(SGOT) 35 U/L (15-37); Alanine Aminotransfer ALT/SGPT 35 U/L (13-56); Albumin, Serum 3.3 g/dL (3.2-5.0); Alkaline Phosphatase 112 U/L (45-117); Anion Gap 8 (5-15); BUN 10 mg/dL (7-18); BUN/Creat Ratio 9.3 RATIO (10-20); Calcium,Total 9.5 mg/dL (8.5-10.1); Chloride 105 mmol/L (98-107); Creatinine, Serum 1.07 mg/dL (0.55-1.02); EST Glomerular Filtration Rate 53 mL/min (>60); Est Glom Filt Rate - Afr Amer 65 mL/min (>60); Globulin 3.7 g/dL (2.2-4.2); Glucose 166 mg/dL (74-106); Potassium 4.1 mmol/L (3.5-5.1); Sodium Level 139 mmol/L (136-145)
== END | disposition home or self-care (01) ==
LOC: BFHLAB 15:56
PROVIDERS: PCP Family Medicine; Referring Provider Family Medicine; Visit Provider Family Medicine
DX: I10 Essential (primary) hypertension (principal); E11.9 Type 2 diabetes mellitus without complications; D72.829 Elevated white blood cell count, unspecified; R77.1 Abnormality of globulin; R60.9 Edema, unspecified
CPT/HCPCS: 36415; 80053; 83036

== ENCOUNTER → 2024-04-06 | Outpatient (CLI) | payer MEDICARE, OTHER, SELFPAY ==
--- NOTE | 2024-04-06 12:46 | VDLE_ITS ---
Reason For Study: Pain BLE RIGHT LEFT GSV is normal. GSV is normal. CFV is compressible, spontaneous, phasic, CFV is compressible, spontaneous, phasic, competent and demonstrates normal competent, and demonstrates normal augmentation. augmentation. FV is compressible, spontaneous, phasic, FV is compressible, spontaneous, phasic, competent and demonstrates normal competent and demonstrates normal augmentation. augmentation. POP V is compressible, spontaneous, phasic, POP V is compressible, spontaneous, phasic, competent and demonstrates normal competent and demonstrates normal augmentation. augmentation. T/P Trunk is compressible. T/P Trunk is compressible. PTV is compressible. PTV is compressible. RT PerV is compressible. LT PerV is compressible. Procedure This is a venous duplex using B-mode, color flow and spectral Doppler. Exam performed in department. Patient unable to tolerate compressions mid/distal thigh bilaterally; relied on color doppler. A preliminary report was called and/or faxed to Dr. Garcia. VL/Venous Duplex US - Javi Extrem Interpretation Summary Deep veins of the bilateral lower extremities are patent and compressible segme ntally. There is no evidence of bilateral lower extremity deep vein thrombosis. The bilateral great saphenous veins appear patent and compressible segmentally. Ordering Physician: Bladimir Garcia Referring Physician: Kush Cheung Performed By: Bette Steinberg, BALWINDER, RVT
--- NOTE | 2024-04-06 12:46 | ART_ITS ---
Reason For Study: PVD Procedure A bilateral lower extremity continuous wave Doppler with analog waveform analysis,segmental pressures,and ankle brachial indexes without exercise. Left Segmental Pressures Left brachial= 161mmHg. Left posterior tibial artery = 173mmHg. Left dorsalis pedis artery = 169mmHg. Left digit = 116 mmHg. Right Segmental Pressures Right brachial= 160mmHg. Right posterior tibial artery = 169mmHg. Right dorsalis pedis artery = 153mmHg. Right digit = 112 mmHg. Indices The right ankle brachial index by the posterior tibial artery is 1.05. The right ankle brachial index by the dorsalis pedis is 0.95. The right digital-brachial index is 0.70. The left ankle brachial index by the posterior tibial artery is 1.07. The left ankle brachial index by the dorsalis pedis is 1.05. The left digital-brachial index is 0.72. VL/Lower Ext Art Exam w/o Exercis Interpretation Summary Right ANIKA 1.05, normal. Doppler/PVR waveforms of the right leg normal at rest. TBI diminished, pedal/digit disease vs spasm. Left ANIKA 1.07, normal. Doppler/PVR waveforms of the left leg normal at rest. TB I diminished, pedal/digit disease vs spasm. Ordering Physician: Bladimir Garcia Referring Physician: Kush Cheung Performed By: Bette Steinberg RDCS/RVT
--- OUTSIDE RECORDS SUMMARY | 2024-04-06 13:05 | XMS RPT_ITS | CCD ---
Author Organization [facility] Care Team Providers Care Dulser Name Role Phone Galdino Cheung DO Primary Care Provider GALDINO CHEUNG Primary Care Unavailable DEDE MCMAHAN Referring Unavailable JOHNATHAN KARIMI Admitting Unavaila GALDINO Schreiber Primary Care Unavailable DAVID HARDEN Referring Unavailable JOHNATHAN KARIMI Attending Unavaila Galdino Schreiber DO Primary Care Provider STEPHANIE SANCHEZ Attending Unavailable SELF Referring Unavailable GALDINO CHEUNG Primary Care Unavailable JENNIFER YE Admitting Unavailable GALDINO CHEUNG Primary Care Unavailable STEPHANIE SANCHEZ Referring Unavailable JENNIFER YE Attending Unavailable DAVID HARDEN Attending Unavailable GALDINO CHEUNG Primary Care Unavailable Allergies Allergy Classification Reported Allergen(s) Allergy Type Date of Onset Reaction(s) Facility (14 sources) Piperacillin / tazobactam; Translations: [PIPERACILLIN-JOY OBACTAM] Drug Allergy 1 Shortness of Breath [facility] (14 sources) Kiwi; Translations: [KIWI] Drug Allergy 3 Diarrhea, Vomiting [facility] Medications Current Medications Medication Drug Class(es) Dates Sig (Normalized) Sig (Original) acetaminophen 325 mg / HYDROcodone bitartrate 5 mg oral tablet (8 sources) Opioid Agonist take 1 tablet by mouth every eight hours as needed HYDROcodone-acetami nophen (NORCO) 5-325 mg per tablet Take 1 tablet by mouth every 8 hours as needed for pain. Active Comment on above: Take 1 tablet by salo th every 8 hours as needed for pain. atorvastatin 20 mg oral tablet (2 sources) HMG-CoA Reductase Inhibitor Start: 08-14-2022 take 1 tablet by mouth once daily atorvastatin (LIPITOR) 20 mg tablet Take 20 mg by mouth once daily. 08/14/2022 Active Comment on above: Take 20 mg by mouth once daily. cyclobenzaprine hydrochloride 10 mg oral tablet (11 sources) Muscle Relaxant cyclobenzaprine (FLEXERIL) 10 mg tablet Take by mouth three times daily as needed for muscle spasm. Active Comment on above: Take by mouth three times daily as needed for muscle spasm. DULoxetine 60 mg delayed release oral capsule (11 sources) Serotonin and Norepinephrine Reuptake Inhibitor Start: 06-08-2015 take 1 capsule by mouth once daily DULoxetine (CYMBALTA) 60 mg capsule Take 1 capsule by mouth once daily. 90 capsule 3 06/08/2015 Active Comment on above: Take 1 capsule by [facility] once daily. ferrous sulfate 325 mg oral tablet (11 sources) take 1 tablet by mouth twice daily ferrous sulfate 325 mg (65 mg iron) tablet Take 325 mg by mouth twice daily. Active Comment on above: Take 325 mg by mouth twice daily. fluticasone propionate 0.05 mg/actuat metered dose nasal spray (11 sources) Corticosteroid Start: 08-17-2017 take 2 spray(s) nasal route once daily fluticasone (FLONASE) 50 mcg/actuation nasal spray USE 2 SPRAYS IN EACH NOSTRIL ONCE DAILY. 48 mL 3 08/17/2017 Active Comment on above: USE 2 SPRAYS IN EACH NOSTRIL ONCE DAILY. Lidocaine (2 sources) Antiarrhythmic, Amide Local Anesthetic lidocaine HCL 4 % ptmd Apply 1 Patch to affected area as needed. Active lidocaine HCL 4 % ptmd Apply 1 Patch to affected area as needed. 0 Active Comment on above: Apply 1 Patch to aff ected area as needed. 24 hr metoprolol succinate 50 mg extended release oral tablet (8 sources) beta-Adrenergic Natanael take 1 tablet by mouth once daily metoprolol succinate ER (TOPROL XL) 50 mg 24 hr tablet Take 50 mg by mouth once daily. Active Comment on above: Take 50 mg by mouth once daily. 24 hr oxybutynin chloride 5 mg extended release oral tablet (11 sources) Cholinergic Muscarinic Antagonist Start: 2 take 1 tablet by mouth once daily at bedtime oxybutynin XL (DITROPAN XL) 5 mg 24 hr tablet Take 1 tablet by mouth daily at bedtime. 07/02/2021 Active Comment on above: Take 1 tablet by salo th daily at bedtime. pantoprazole 40 mg delayed release oral tablet (7 sources) Proton Pump Inhibitor Start: 3 take 1 tablet by mouth twice daily pantoprazole DR (PROTONIX) 40 mg tablet TAKE 1 TABLET BY MOUTH TWICE A DAY 60 tablet 09/28/2022 Active Start: 07-16-2022 End: 09-26-2022 take 1 tablet by mouth twice daily pantoprazole DR (PROTONIX) 40 mg tablet Take 1 tablet by mouth twice daily. 60 tablet 0 08/27/2022 09/26/2022 Active Comment on above: Take 1 tablet by salo th twice daily. TAKE 1 TABLET BY SALO TH TWICE A DAY Potassium Chloride (8 sources) POTASSIUM CHLORI DE 2.5 MEQ TAB 60 mEq three times daily. Active POTASSIUM CHLORI DE 2.5 MEQ TAB 60 mEq three times daily. 0 Active POTASSIUM CHLORI DE 2.5 MEQ TAB 60 mEq once daily. 0 Active Comment on above: 60 mEq once daily. 60 mEq three times d aily. predniSONE 10 mg oral tablet (8 sources) take 1 tablet by mouth once daily as needed predniSONE (DELTASONE) 10 mg tablet Take 10 mg by mouth once daily as needed. TAKE 3-5 DAYS WITH FLARE UPS Active Comment on above: Take 10 mg by mouth once daily as needed. TAKE 3-5 DAYS WITH FLARE UPS vitamin b12 0.1 mg oral tablet (8 sources) Vitamin B12 cyanocobalamin ( VITAMIN B-12) 100 mcg tab Take 1,000 mcg by mouth once daily. Active Comment on above: Take 1,000 mcg by [facility] once daily. zolpidem tartrate 5 mg oral tablet (6 sources) gamma-Aminobutyric Acid-ergic Agonist take 5 mg by mouth once daily at bedtime zolpidem tartrate (ZOLPIDEM ORAL) Take 5 mg by mouth daily at bedtime. Active Comment on above: Take 5 mg by mouth d aily at bedtime. Completed/Discontinued Medications Medication Drug Class(es) Dates Sig (Normalized) Sig (Original) cholecalciferol 0.01 mg oral capsule (7 sources) Vitamin D End: 3 take 1 capsule by mouth once daily cholecalciferol, vitamin D3, 10 mcg (400 unit) cap Take 50,000 Units by mouth once daily. 05/01/2023 Discontinued Comment on above: Take 50,000 Units by mouth once daily. gabapentin 600 mg oral tablet (10 sources) Anti-epileptic Agent Start: 2 End: 4 gabapentin (NEURONTIN) 600 mg tablet Take one tablet in am and one tablet in the evening for 7 days, then 1/2 tablet in the morning and one tablet in the evening for 7 days, then 1/2 tablet in the morning and 1/2 tablet in the evening for 7 days, then 1/2 tablet in the evening for 7 days, then stop. 07/02/2021 03/27/2024 Discontinued (Discontinued by Patient) Comment on above: Take one tablet in a m and one tablet in the evening for 7 days, then 1/2 tablet in the morning and one tablet in the evening for 7 days, then 1/2 tablet in the morning and 1/2 tablet in the evening for 7 days, then 1/2 tablet in the evening for 7 days, then stop. hydroCHLOROthiazide 25 mg oral tablet (10 sources) Thiazide Diuretic Start: 5 End: 3 take 1 tablet by mouth once daily hydrochlorothiazide (HYDRODIURIL, ESIDRIX) 25 mg tablet Take 1 tablet by mouth once daily. 90 tablet 3 03/25/2015 Active Comment on above: Take 1 tablet by salo th once daily. Take 25 mg by mouth once daily as needed. FOR SWELLING lisinopril 10 mg oral tablet (3 sources) Angiotensin Converting Enzyme Inhibitor Start: 5 take 1 tablet by mouth once daily lisinopril (ZESTRIL, PRINIVIL) 10 mg tablet Take 1 tablet by mouth once daily. 90 tablet 3 03/11/2015 Active Comment on above: Take 1 tablet by salo th once daily. meloxicam 7.5 mg oral tablet (11 sources) Nonsteroidal Anti-inflammator y Drug Start: 8 End: 4 take 1 tablet by mouth once daily meloxicam (MOBIC) 7.5 mg tablet Take 7.5 mg by mouth once daily. 01/09/2018 03/27/2024 Discontinued (Discontinued by Patient) Comment on above: Take 7.5 mg by mouth once daily. nystatin 100 unt/mg topical powder (8 sources) Polyene Antifungal End: 4 nystatin (MYCOSTATIN) powder Apply to affected area once daily as needed. 03/27/2024 Discontinued (Discontinued by Patient) Comment on above: Apply to affected ar ea once daily as needed. omeprazole 20 mg delayed release oral capsule (5 sources) Proton Pump Inhibitor Start: 5 End: 3 take 1 capsule by mouth twice daily omeprazole (PRILOSEC) 20 mg capsule Take 1 capsule by mouth twice daily. 60 capsule 5 03/25/2015 07/16/2022 Discontinued (Course of therapy completed) Comment on above: Take 1 capsule by [facility] twice daily. oxyCODONE 13.5 mg 12 hr extended release oral capsule, abuse-deterrent (8 sources) Opioid Agonist End: 4 oxyCODONE myristate (XTAMPZA ER) 13.5 mg CSpT Take by mouth. 03/27/2024 Discontinued (Discontinued by Patient) Comment on above: Take by mouth. polyethylene glycol 3350 647771 mg / potassium chloride 2970 mg / sodium bicarbonate 6740 mg / sodium chloride 5860 mg / sodium sulfate 10189 mg powder for oral solution (1 source) Osmotic Laxative Start: 3 End: 3 peg 3350-Electrolytes (GOLYTELY) 236-22.74-6.74 -5.86 gram suspension Indications: History of colon polyps Take 4,000 mL by mouth one time only for 1 dose. Refer to printed prep instructions from your provider. 4000 mL 0 06/26/2022 06/26/2022 Comment on above: Take 4,000 mL by [facility] one time only for 1 dose. Refer to printed prep instructions from your provider. Problems Active Problems Problem Classification Problem Date Documented Da te Episodic/Chronic Abdominal pain (1 source) Epigastric pain; Translations: [Epigastric pain] Episodic Deficiency and other anemia (12 sources) Anemia; Translations: [Anemia, unspecified] 02-20-2018 Episodic Diabetes mellitus with complications (1 source) Type 2 diabetes mellitus in obese; Translations: [Type 2 diabetes mellitus with other specified complication] Onset: 3 04-29-2023 Chronic Diseases of white blood cells (1 source) Leukocytosis; Translations: [Elevated white blood cell count, unspecified] Onset: 3 04-29-2023 Chronic Esophageal disorders (14 sources) Gastroesophageal reflux disease; Translations: [Gastro-esophageal reflux disease without esophagitis] Onset: 3 05-29-2013 Chronic Essential hypertension (11 sources) Essential hypertension; Translations: [Essential (primary) hypertension] 07-02-2021 Chronic Gastroduodenal ulcer (except hemorrhage) (3 sources) Gastric ulcer; Translations: [Gastric ulcer, unspecified as acute or chronic, without hemorrhage or perforation] Onset: 4 Chronic Mood disorders (11 sources) Depressive disorder; Translations: [Depression] 05-29-2013 Chronic Nausea and vomiting (1 source) Nausea; Translations: [Nausea] 03-30-2024 Episodic Osteoarthritis (12 sources) Osteoarthritis of left hip joint; Translations: [Unilateral primary osteoarthritis, left hip] 02-20-2018 Chronic Other aftercare (11 sources) Patient encounter status; Translations: [Aftercare following joint replacement surgery] Onset: 8 02-27-2018 Chronic Other aftercare (11 sources) Polypharmacy ; Translations: [Other half-way (current) drug therapy] 07-02-2021 Episodic Other and unspecified benign neoplasm (2 sources) History of polyp of colon; Translations: [Personal history of colonic polyps] Episodic Other connective tissue disease (11 sources) History of repair of hip joint; Translations: [Presence of left artificial hip joint] Onset: 8 04-16-2018 Chronic Other connective tissue disease (3 sources) Shoulder girdle weakness; Translations: [Other symptoms and signs involving the musculoskeletal system] Episodic Other connective tissue disease (11 sources) Fibromyalgia; Translations: [Fibromyalgia] 07-02-2021 Episodic Other gastrointestinal disorders (1 source) Dysphagia; Translations: [Dysphagia, unspecified] Episodic Other nervous system disorders (1 source) Skin sensation disturbance; Translations: [Unspecified disturbances of skin sensation] Episodic Other non-traumatic joint disorders (3 sources) Shoulder pain; Translations: [Pain in left shoulder] Episodic Other non-traumatic joint disorders (3 sources) Decreased range of shoulder movement; Translations: [Stiffness of left shoulder, not elsewhere classified] Episodic Other nutritional; endocrine; and metabolic disorders (11 sources) Obese class I; Translations: [Obesity, unspecified] Onset: 2 07-02-2021 Chronic Other nutritional; endocrine; and metabolic disorders (2 sources) Hypercalcemia; Translations: [Hypercalcemia] Onset: 3 Chronic Other nutritional; endocrine; and metabolic disorders (1 source) Hypercalcemia; Translations: [Hypercalcemia] Onset: 3 04-29-2023 Chronic Other skin disorders (11 sources) Hyperhidrosis; Translations: [Generalized hyperhidrosis] 07-02-2021 Episodic Residual codes; unclassified (1 source) Pain; Translations: [Pain, unspecified] 10-01-2022 Episodic Spondylosis; intervertebral disc disorders; other back problems (11 sources) Degeneration of lumbar intervertebral disc; Translations: [Other intervertebral disc degeneration, lumbar region] Onset: 5 06-29-2014 Chronic Past or Other Problems Problem Classification Problem Date Documented Date Episodic/Chronic Acute and unspecified renal failure (1 source) Acute renal failure syndrome; Translations: [Acute kidney failure, unspecified] Onset: 04-29-2023 04-29-2023 Episodic Conditions associated with dizziness or vertigo (8 sources) Dizziness; Translations: [Dizziness and giddiness] Onset: 12-10-2021 12-10-2021 Episodic Fracture of upper limb (14 sources) Closed fracture of upper end of humerus; Translations: [Other displaced fracture of upper end of left humerus, sequela] Onset: 07-01-2021 Episodic Genitourinary symptoms and ill-defined conditions (2 sources) Urinary incontinence; Translations: [Unspecified urinary incontinence] Resolved: 05-29-2013 05-29-2013 Chronic Other and unspecified benign neoplasm (11 sources) Polyp of colon; Translations: [Polyp of colon] Onset: 06-03-2015 06-03-2015 Episodic Other connective tissue disease (11 sources) Myofascial pain; Translations: [Myalgia, other site] Onset: 04-28-2015 04-28-2015 Episodic Other connective tissue disease (11 sources) Falls; Translations: [Repeated falls] Onset: 04-16-2019 04-16-2019 Episodic Other connective tissue disease (11 sources) Transient limb paralysis; Translations: [Other symptoms and signs involving the nervous system] Onset: 04-16-2019 04-16-2019 Episodic Other connective tissue disease (11 sources) Muscle weakness; Translations: [Muscle weakness (generalized)] Onset: 04-16-2019 04-16-2019 Episodic Other nervous system disorders (11 sources) Abnormal gait; Translations: [Unspecified abnormalities of gait and mobility] Onset: 04-16-2019 04-16-2019 Episodic Other screening for suspected conditions (not mental disorders or infectious disease) (1 source) Prolonged QT interval; Translations: [Abnormal electrocardiogram [ECG] [EKG]] Onset: 04-29-2023 04-29-2023 Episodic Residual codes; unclassified (1 source) Pain, unspecified; Translations: [Pain] Onset: 10-01-2022 Episodic Spondylosis; intervertebral disc disorders; other back problems (20 sources) Chronic back pain ; Translations: [Dorsalgia, unspecified] Onset: 06-29-2014 07-02-2021 Episodic Sprains and strains (11 sources) Strain of muscle at thorax level; Translations: [Strain of muscle and tendon of unspecified wall of thorax, initial encounter] Onset: 04-28-2015 04-28-2015 Episodic Syncope (5 sources) Syncope and collapse; Translations: [Syncope] Onset: 07-01-2021 04-29-2023 Episodic Unclassified (2 sources) NO SHOW Onset: 10-27-2014 Resolved: 02-20-2018 02-20-2018 Viral infection (11 sources) Disease caused by 2019-nCoV; Translations: [COVID-19] Onset: 07-01-2021 07-02-2021 Episodic Results Test Name Value Interpretation Reference Range Facility ANES POSTPROC EVALon 024 ANES POSTPROC EVAL HNO ID: [id number] Author: LIZABETH PLATA MD Service: Anesthesiology Author Type: Physician Type: Anesthesia Postprocedure Evaluation Filed: 04/02/2024 13:44 Note Text: POST ANESTHESIA EVALUATION NOTE : 1950 Procedure Summary Date: 04/02/24 Room / Location: SURGERY Anesthesia Start: 1323 Anesthesia Stop: Procedure: EGD DIAGNOSTIC Diagnosis: Gastric ulcer without hemorrhage or perforation, unspecified chronicity Gastric ulcer without hemorrhage or perforation, unspecified chronicity Scheduled Providers: Jennifer Ye MD; Lizabeth Plata MD Responsible Provider: Lizabeth Plata MD Anesthesia Type: MAC ASA Status: 3 Anesthesia Type: MAC Last Vitals Vitals Value Taken Time BP 146/82 04/02/24 1341 Temp 98.8 04/02/24 1344 Pulse 83 04/02/24 1344 Resp 26 04/02/24 1344 SpO2 96 % 04/02/24 1344 Vitals shown include unfiled device data. Post Anesthesia Patient Status Patient Evaluation: bedside. Anticipated Disposition: phase 2 then home. Neurological Status: aware and responsive. Pulmonary Status: breathing comfortably on room air Airway Control: returned to baseline unsupported. Cardiovascular Status: stable. Pain Management: clinically adequate Postoperative Hydration: acceptable. Intraoperative Events: no significant anesthesia events Post Operative Nausea/Vomiting Status: no significant post operative nausea or vomiting Recommendation: continue current plan of care. Anesthesia Observations No Documentation SIGNATURE: Lizabeth Plata MD PATIENT NAME: Sera Dewitt DATE: April 02, 2024 TIME: 1:44 PM CSN: [id number] [facility] ANES PRE-OPon 04-02-2024 ANES PRE-OP HNO ID: [id number] Author: LIZABETH PLATA MD Service: Anesthesiology Author Type: Physician Type: Anesthesia Preprocedure Evaluation Filed: 04/02/2024 13:04 Note Text: ANESTHESIOLOGY DAY OF SURGERY NOTE : 1950 Procedure Information Date/Time: 04/02/24 1345 Scheduled providers: Jennifer Ye MD; Lizabeth Plata MD Procedure: EGD DIAGNOSTIC Location: LD SURGERY Estimated body mass index is 33.49 kg/m? as calculated from the following: Height as of 03/30/24: 170.2 cm (5' 7 ). Weight as of 03/30/24: 97 kg (213 lb 12.8 oz). Most recent hematocrit and potassium results: Hematocrit 41.1 05/01/2023 Potassium 3.4 05/01/2023 Relevant Problems CARDIO (+) Primary hypertension ENDO (+) Type 2 diabetes mellitus with obesity (HCC) (HCC) GI (+) GERD (gastroesophageal reflux disease) (+) Gastric ulcer without hemorrhage or perforation -RENAL (+) CHERI (acute kidney injury) (HCC) I - PHYSICAL EVALUATION AIRWAY Patient intubated: No. Tracheostomy tube not present Mallampati: III. TM distance: >3 FB. Neck ROM: full ROM without neurological symptoms. Mouth opening: adequate. Short neck: yes. Thick neck: yes Valadez present: no Microretrognathia/Micronagth ia/Recessed Chin: No DENTAL Dentures, upper: complete. Dentures, lower: complete. Additional exam findings: yes. CARDIOVASCULAR Normal cardiovascular observations. PULMONARY Normal pulmonary observations. II - ANESTHESIA PLAN ASA Score: 3 Anesthetic Plan: MAC The patient is not a current smoker. NPO Status: adequate Beta Natanael Monitoring Plan Monitoring plan: standard ASA. Post Procedure Analgesic Plan Postoperative analgesic plan: parenteral or oral opioids. Informed Consent Anesthetic risks, benefits, alternatives, personnel and consent discussed: yes. Patient / Responsible [employer] agrees to proceed: yes Patient / Surrogate agrees to blood products: Yes DNR status not reviewed with patient and/or family prior to surgery. Significant changes in the patient condition since the History and Physical, not otherwise documented in primary service progress note: no. Potential Anesthesia issues that may suggest increased risk of complications or contraindication to planned procedure: none. No vitals data found for the desired time range. Facility-Administered Medications as of 04/02/2024 Medication Dose Route Frequency - lidocaine (PF) 10 mg/mL (1 %) 1-2 mg injection (XYLOCAINE) 0.1-0.2 mL INTRADERMAL PRN - lactated ringers iv infusion 30 mL/hr INTRAVENOUS CONTINUOUS Outpatient Medications as of 04/02/2024 Medication Sig - propranolol (INDERAL) 20 mg tablet Take 20 mg by mouth three times a day. - atorvastatin (LIPITOR) 20 mg tablet Take 20 mg by mouth once daily. - lidocaine HCL 4 % ptmd Apply 1 Patch to affected area as needed. - pantoprazole DR (PROTONIX) 40 mg tablet TAKE 1 TABLET BY MOUTH TWICE A DAY - zolpidem tartrate (ZOLPIDEM ORAL) Take 5 mg by mouth daily at bedtime. - POTASSIUM CHLORIDE 2.5 MEQ TAB 60 mEq three times daily. - predniSONE (DELTASONE) 10 mg tablet Take 10 mg by mouth once daily as needed. TAKE 3-5 DAYS WITH FLARE UPS - metoprolol succinate ER (TOPROL XL) 50 mg 24 hr tablet Take 50 mg by mouth once daily. - cyanocobalamin (VITAMIN B-12) 100 mcg tab Take 1,000 mcg by mouth once daily. - HYDROcodone-acetaminophen (NORCO) 5-325 mg per tablet Take 1 tablet by mouth every 8 hours as needed for pain. - cyclobenzaprine (FLEXERIL) 10 mg tablet Take by mouth three times daily as needed for muscle spasm. - oxybutynin XL (DITROPAN XL) 5 mg 24 hr tablet Take 1 tablet by mouth daily at bedtime. (Patient taking differently: Take 10 mg by mouth three times a day at 6 am, 12 pm, and 9 pm.) - ferrous sulfate 325 mg (65 mg iron) tablet Take 325 mg by mouth twice daily. - fluticasone (FLONASE) 50 mcg/actuation nasal spray USE 2 SPRAYS IN EACH NOSTRIL ONCE DAILY. - DULoxetine (CYMBALTA) 60 mg capsule Take 1 capsule by mouth once daily. I have interviewed and examined the patient. I have reviewed the medical record and/or the pre-anesthesia evaluation, pertinent labs, and test results. This contains updated information obtained within 48 hours of Surgery/Procedure. SIGNATURE: Lizabeth Plata MD PATIENT NAME: Sera Dewitt DATE: April 02, 2024 TIME: 1:03 PM CSN: [id number] [facility] BRIEF OP NOTon 04-02-2024 BRIEF OP NOT HNO ID: [id number] Author: JENNIFER YE MD Service: General Surgery Author Type: Physician Type: Brief Op Note Filed: 04/02/2024 13:38 Note Text: BRIEF OPERATIVE NOTE SURGERY DATE: 04/02/2024 Incision/Procedure Start Time: 13:30 Incision Close/Procedure End Time: 13:34 Surgeon(s)/Proceduralist(s) and Felt Hat Inspector And Packer(s): rohan Procedures: EGD with biopsies Anesthesia: MAC Findings: gastric ulcer, enterogastric reflux of bile, retained bile in stomach Estimated Blood Loss: minimal Specimens: mucosal biopsies of antrum - edge of gastric ulcer Complications: None Closure Technique: Non-primary Preop Diagnosis: history of gastric ulcer Postop Diagnosis: gastric ulcer Patient was accompanied to the next level of care by a licensed practitioner from the surgical team pending completion of this brief op note (or operative note) SIGNATURE: Jennifer Ye MD PATIENT NAME: Sera Dewitt DATE: April 02, 2024 TIME: 1:36 PM CSN:[id number] Normal [facility] HISTORY PHYSICALon HISTORY PHYSICAL HNO ID: [id number] Author: JENNIFER YE MD Service: General Surgery Author Type: Physician Type: H&P Filed: 04/02/2024 12:41 Note Text: HISTORY AND PHYSICAL Sera Francesco : 1950 REFERRING PHYSICIAN: SELF CHIEF COMPLAINT: Patient presents with: Consult: EGD, last EGD 09/2022 HPI: Sera is a 73 year old female referred for endoscopy. Sera notes due for surveillance EGD to verify healing ulcer. Had EGD completed 10/07 with evidence of ulcer, was due to repeat EGD in 6 months. Sera notes heartburn. +nausea since about the first of year but progressively getting worse. She notes she stopped taking her potassium because it is causing her stomach to be upset Sera denies dysphagia. Sera notes a history of ulcers/ peptic ulcer disease. Still taking Protonix Sera was admitted for an overnight stay around spring time, she is unsure of exact date, d/t hypercalcemia from taking too many Tums as a result of her nausea and reflux. Sera has undergone prior endoscopy. Last EGD 10/04/[address] Ye at [facility] with MAC with findings of healing gastric ulcer. CURRENT MEDICATIONS Current Outpatient Medications Medication Sig atorvastatin (LIPITOR) 20 mg tablet Take 20 mg by mouth once daily. lidocaine HCL 4 % ptmd Apply 1 Patch to affected area as needed. pantoprazole DR (PROTONIX) 40 mg tablet TAKE 1 TABLET BY MOUTH TWICE A DAY zolpidem tartrate (ZOLPIDEM ORAL) Take 5 mg by mouth daily at bedtime. POTASSIUM CHLORIDE 2.5 MEQ TAB 60 mEq three times daily. predniSONE (DELTASONE) 10 mg tablet Take 10 mg by mouth once daily as needed. TAKE 3-5 DAYS WITH FLARE UPS metoprolol succinate ER (TOPROL XL) 50 mg 24 hr tablet Take 50 mg by mouth once daily. cyanocobalamin (VITAMIN B-12) 100 mcg tab Take 1,000 mcg by mouth once daily. HYDROcodone-acetaminophen (NORCO) 5-325 mg per tablet Take 1 tablet by mouth every 8 hours as needed for pain. cyclobenzaprine (FLEXERIL) 10 mg tablet Take by mouth three times daily as needed for muscle spasm. oxybutynin XL (DITROPAN XL) 5 mg 24 hr tablet Take 1 tablet by mouth daily at bedtime. (Patient taking differently: Take 10 mg by mouth three times a day at 6 am, 12 pm, and 9 pm.) ferrous sulfate 325 mg (65 mg iron) tablet Take 325 mg by mouth twice daily. fluticasone (FLONASE) 50 mcg/actuation nasal spray USE 2 SPRAYS IN EACH NOSTRIL ONCE DAILY. DULoxetine (CYMBALTA) 60 mg capsule Take 1 capsule by mouth once daily. No current facility-administered medications for this visit. ALLERGIES: Kiwi and Zosyn [Piperacillin-Tazobactam] PAST MEDICAL HISTORY PAST MEDICAL HISTORY Diagnosis Date Anemia Burning mouth syndrome Depression Fibromyalgia GERD (gastroesophageal reflux disease) Hyperhidrosis Hypertension Insomnia Sleep apnea CPAP Vitamin D deficiency PAST SURGICAL HISTORY PAST SURGICAL HISTORY Procedure Laterality Date ARTHRP KNE CONDYLEANDPLATU MEDIALANDLAT COMPARTMENTS Bilateral 04/2012 COLONOSCOPY 07/05/2022 COLONOSCOPY 07/05/2022 EGD 07/05/2022 EGD 07/05/2022 repeat in 3 months EGD W/O BRSH SPEC VARICIES INJ 03/19/2024 FOOT SURGERY HX Left HYSTERECTOMY HX ORTHOPEDICS SURGERY HX left thr ORTHOPEDICS SURGERY HX bilateral tkr TONSILLECTOMY AND ADENOIDECTOMY HX Childhood TONSILLECTOMY HX VAGINAL HYSTERECTOMY UTERUS 250 GM/< 1982 Hysterectomy, vaginal FAMILY HISTORY FAMILY HISTORY Problem Relation Age of Onset Colon Cancer Mother Diabetes Mother Stroke Mother Alzheimer's Disease Mother Emphysema Father Diabetes Brother Seizures Brother SOCIAL HISTORY Social History Tobacco Use Smoking status: Former Current packs/day: 0.50 Average packs/day: 0.5 packs/day for 60.1 years (30.1 ttl pk-yrs) Types: Cigarettes Start date: 02/21/1964 Smokeless tobacco: Never Tobacco comments: Reports quit smoking in Vaping Use Vaping status: Never Used Substance Use Topics Alcohol use: No Drug use: No REVIEW OF SYMPTOMS: SEE HPI PHYSICAL EXAMINATION: General: The patient is 73 year old, female well nourished, well hydrated in no acute distress. The patient is oriented to time, place, and person. VITALS: Blood pressure 150/98, pulse 63, temperature 36 ?C (96.8 ?F), height 170.2 cm (5' 7 ), weight 97 kg (213 lb 12.8 oz), SpO2 97%. Body mass index is 33.49 kg/m?. HEENT: Normal cephalic, ataumatic, pupils are equally round, sclera are anicteric, mucous membranes are moist, oropharynx is clear. Neck has no masses, asymmetry or lymphadenopathy. Respiratory: Clear to auscultation and percussion. Normal respiratory excursion and pattern. Cardiac: Examination is regular rate and rhythm. Normal S1/S2 Abdominal exam: Soft, nontender, with no palpable masses. No hepatosplenomegaly. No palpable hernias. Extremities: no clubbing, cyanosis or edema. No adenopathy. LABORATORY VALUES: As Noted RADIOLOGIC STUDIES: As Noted Assessment IMPRESSION: his (more content not included)... Normal [facility] OPERATIVE NOon 04-02-2024 OPERATIVE NO HNO ID: [id number] Author: JENNIFER YE MD Service: General Surgery Author Type: Physician Type: Operative Report Filed: 04/03/2024 10:56 Note Text: [facility] - Operative Report - SERA Maya : 1950 AGE: 73. SEX: F PATIENT TYPE: O [facility]: [facility] LOCATION: [facility] ATTENDING PHYSICIAN: Jennifer Ye MD CSN NUMBER: [id number] DATE OF SURGERY/PROCEDURE: 04/02/2024 INCISION/PROCEDURE START TIME: 1:30 PM INCISION CLOSE/PROCEDURE END TIME: 1:34 PM PREOPERATIVE DIAGNOSIS: History of gastric ulcer. POSTOPERATIVE DIAGNOSIS: Gastric ulcer. SURGEON: Jennifer Ye MD SLOTTER OPERATOR: No Additional Staff SURGERY/PROCEDURE: Esophagogastroduodenoscopy with biopsies. ANESTHESIA: MAC. LOCATION: [facility]ly [facility], 1928–1983. INDICATIONS: Sera Dewitt is a 73-year-old female who presents with a history of gastric ulcer. This is surveillance followup upper endoscopy. She has been counseled on the risks of procedure including, but not limited to infection, bleeding, perforation of GI tract, inability to complete the procedure, injury to any internal organs, etc. The patient understands and agrees to proceed. DESCRIPTION OF PROCEDURE: After informed consent was given, the patient was brought to the endoscopy suite. She was placed in the left lateral decubitus position. A bite block was placed. She was given IV anesthesia by the anesthesia provider. The endoscope was lubricated, carefully inserted in the patient's mouth, advanced into the esophagus. It was then advanced into the stomach, past the pylorus, then into the first and second portion of the duodenum. There was no evidence of any masses, polyps, or lesions noted in the duodenum. The endoscope was retracted back in the stomach. There was enterogastric reflux of bile noted. There was a healing gastric ulcer, with a crater that was less than a centimeter squared, which was noted in the antrum of stomach. Mucosal biopsies were taken at this site using cold grasper forceps. There was also retained bile noted in the stomach. No other masses, polyps, or lesions were noted in the stomach. Retroflexed view in the fundus and the body of the stomach revealed no hiatal hernia. The endoscope was retracted back in the esophagus. No abnormalities or lesions were noted in the esophagus. The endoscope was removed intact. The patient tolerated the procedure well. She was brought to recovery room in stable condition. ESTIMATED BLOOD LOSS: Minimal. SPECIMENS: Mucosal biopsies, antrum of the stomach. COMPLICATIONS: None. Jennifer Ye MD LW:[id number] /[id number] Normal [facility] NURSING PROGon 03-31-2024 NURSING PROG HNO ID: [id number] Author: CHERRY SORENSEN RN Service: ? Author Type: Registered Nurse Type: Nursing Progress Note Filed: 03/31/2024 13:43 Note Text: Pre-Procedure Checklist [facility] [phone] (home) 1950 73 year old Height: 5'7 Weight: 213 Allergies: Kiwi Diarrhea, Vomiting Zosyn [Piperacillin* Shortness of Breath Procedure: EGD Date of Procedure: 04/02/2024 Smoke: No Alcohol: No Street Drugs: No Diabetic: Yes Insulin: No Problems with Anesthesia (Self or Family?) Yes- said that she was hard to put to sleep previously Insole Filler: NA Saw marine equipment test engineer in the last 6 months? No Recent EKG/Cardiac Testing: Yes Chest pain in the last 6 months (<6 months cardiac clearance needed): No History of: Heart Attack/Stroke/Blood Clot?: NA Shortness of Breath: No Asthma: No Inhalers: No Any Outstanding Consults?: No If yes, list: NA Additional Notes: Pt alert and oriented; educated to take BP medications am of procedure like she did for her previous EGD's in [place]. NPO after midnight; pt stated that she has not had any issues with anesthesia while having procedures done here in [facility] CNOVon 03-30-2024 CN Office Visit (GENSWS ) SERA DEWITT ([id number]) 1950 F Date Time Provider Department 03/30/24 4:30 PM STEPHANIE SANCHEZ During your visit today, we recorded the following information about you: Temperature Pulse Blood pressure Weight 96.8 degrees 63/minute 150/98 97 kg Height 1.702 m Stephanie Sanchez APRN.CNP 03/31/2024 8:15 AM Signed HISTORY AND PHYSICAL Sera Francesco : 1950 REFERRING PHYSICIAN: SELF CHIEF COMPLAINT: Patient presents with: Consult: EGD, last EGD 09/2022 HPI: Sera is a 73 year old female referred for endoscopy. Sera notes due for surveillance EGD to verify healing ulcer. Had EGD completed 10/07 with evidence of ulcer, was due to repeat EGD in 6 months. Sera notes heartburn. +nausea since about the first of year but progressively getting worse. She notes she stopped taking her potassium because it is causing her stomach to be upset Sera denies dysphagia. Sera notes a history of ulcers/ peptic ulcer disease. Still taking Protonix Sera was admitted for an overnight stay around spring time, she is unsure of exact date, d/t hypercalcemia from taking too many Tums as a result of her nausea and reflux. Sera has undergone prior endoscopy. Last EGD 10/04/[address] Ye at [place] with MAC with findings of healing gastric ulcer. Current Outpatient Medications Medication Sig atorvastatin (LIPITOR) 20 mg tablet Take 20 mg by mouth once daily. lidocaine HCL 4 % ptmd Apply 1 Patch to affected area as needed. pantoprazole DR (PROTONIX) 40 mg tablet TAKE 1 TABLET BY MOUTH TWICE A DAY zolpidem tartrate (ZOLPIDEM ORAL) Take 5 mg by mouth daily at bedtime. POTASSIUM CHLORIDE 2.5 MEQ TAB 60 mEq three times daily. predniSONE (DELTASONE) 10 mg tablet Take 10 mg by mouth once daily as needed. TAKE 3-5 DAYS WITH FLARE UPS metoprolol succinate ER (TOPROL XL) 50 mg 24 hr tablet Take 50 mg by mouth once daily. cyanocobalamin (VITAMIN B-12) 100 mcg tab Take 1,000 mcg by mouth once daily. HYDROcodone-acetaminophen (NORCO) 5-325 mg per tablet Take 1 tablet by mouth every 8 hours as needed for pain. cyclobenzaprine (FLEXERIL) 10 mg tablet Take by mouth three times daily as needed for muscle spasm. oxybutynin XL (DITROPAN XL) 5 mg 24 hr tablet Take 1 tablet by mouth daily at bedtime. (Patient taking differently: Take 10 mg by mouth three times a day at 6 am, 12 pm, and 9 pm.) ferrous sulfate 325 mg (65 mg iron) tablet Take 325 mg by mouth twice daily. fluticasone (FLONASE) 50 mcg/actuation nasal spray USE 2 SPRAYS IN EACH NOSTRIL ONCE DAILY. DULoxetine (CYMBALTA) 60 mg capsule Take 1 capsule by mouth once daily. No current facility-administered medications for this visit. ALLERGIES: Kiwi and Zosyn [Piperacillin-Tazobactam] PAST MEDICAL HISTORY Diagnosis Date Anemia Burning mouth syndrome Depression Fibromyalgia GERD (gastroesophageal reflux disease) Hyperhidrosis Hypertension Insomnia Sleep apnea CPAP Vitamin D deficiency PAST SURGICAL HISTORY Procedure Laterality Date ARTHRP KNE CONDYLEANDPLATU MEDIALANDLAT COMPARTMENTS Bilateral 04/2012 COLONOSCOPY 07/05/2022 COLONOSCOPY 07/05/2022 EGD 07/05/2022 EGD 07/05/2022 repeat in 3 months EGD W/O BRSH SPEC VARICIES INJ 03/19/2024 FOOT SURGERY HX Left HYSTERECTOMY HX ORTHOPEDICS SURGERY HX left thr ORTHOPEDICS SURGERY HX bilateral tkr TONSILLECTOMY AND ADENOIDECTOMY HX Childhood TONSILLECTOMY HX VAGINAL HYSTERECTOMY UTERUS 250 GM/< 1982 Hysterectomy, vaginal FAMILY HISTORY Problem Relation Age of Onset Colon Cancer Mother Diabetes Mother Stroke Mother Alzheimer's Disease Mother Emphysema Father Diabetes Brother Seizures Brother Social History Tobacco Use Smoking status: Former Current packs/day: 0.50 Average packs/day: 0.5 packs/day for 60.1 years (30.1 ttl pk-yrs) Types: Cigarettes Start date: 02/21/1964 Smokeless tobacco: Never Tobacco comments: Reports quit smoking in [facility] Vaping Use Vaping status: Never Used Substance Use Topics Alcohol use: No Drug use: No REVIEW OF SYMPTOMS: SEE HPI PHYSICAL EXAMINATION: General: The patient is 73 year old, female well nourished, well hydrated in no acute distress. The patient is oriented to time, place, and person. VITALS: Blood pressure 150/98, pulse 63, temperature 36 ?C (96.8 ?F), height 170.2 cm (5' 7 ), weight 97 kg (213 lb 12.8 oz), SpO2 97%. Body mass index is 33.49 kg/m?. HEENT: Normal cephalic, ataumatic, pupils are equally round, sclera are anicteric, mucous membranes are moist, oropharynx is clear. Neck has no masses, asymmetry or lymphadenopathy. Respiratory: Clear to auscultation and percussion. Normal respiratory excursion and pattern. Cardiac: Examination is regular rate and rhythm. Normal S1/S2 Abdominal exam: Soft, nontender, with no palpable masses. N (more content not included)... Normal [facility] CBC panel Auto (Bld)on 05-01 Erythrocyte distribution width (RBC) [Ratio] 14.1 % Normal 11.5-15.0 [facility] Comment on above: Order Comment: Speci men Type: BLOOD SPECIMEN Ordering Facility: [facility] Address: [address] [place] [address] Performed By: #### 5 8410-2 #### [facility] CLIA [id number] [address] [place] [address] [place] Hematocrit (Bld) [Volume fraction] 41.1 % Normal 36.0-46.0 [facility] Comment on above: Order Comment: Speci men Type: BLOOD SPECIMEN Ordering Facility: [facility] Address: [address] [place] [address] Performed By: #### 5 8410-2 #### [facility] CLIA [id number] [address] Hemoglobin (Bld) [Mass/Vol] 14.0 g/dL Normal 11.5-15.5 [facility] Comment on above: Order Comment: Speci men Type: BLOOD SPECIMEN Ordering Facility: [facility] Address: [address] [place] [address] Performed By: #### 5 8410-2 #### [facility] CLIA [id number] [address] MCH (RBC) [Entitic mass] 30.8 pg Normal 26.0-34.0 [facility] Comment on above: Order Comment: Speci men Type: BLOOD SPECIMEN Ordering Facility: [facility] Address: [address] [place] [address] Performed By: #### 5 8410-2 #### [facility] CLIA [id number] [address] MCHC (RBC) [Mass/Vol] 34.1 g/dL Normal 30.5-36.0 [facility] Comment on above: Order Comment: Speci men Type: BLOOD SPECIMEN Ordering Facility: [facility] Address: [address] [place] [address] Performed By: #### 5 8410-2 #### [facility] CLIA [id number] [address] MCV (RBC) [Entitic vol] 90.3 fL Normal 80.0-100.0 [facility] Comment on above: Order Comment: Speci men Type: BLOOD SPECIMEN Ordering Facility: [facility] Address: [address] [place] [address] Performed By: #### 5 8410-2 #### [facility] CLIA [id number] [address] Nucleated RBC (Bld) [#/Vol] 10*3/uL Normal <0.01 [facility] Comment on above: Order Comment: Speci men Type: BLOOD SPECIMEN Ordering Facility: [facility] Address: [address] [place] [address] Performed By: #### 5 8410-2 #### [facility] CLIA [id number] [address] [place] [address] [place] Platelet mean volume (Bld) [Entitic vol] 9.5 fL Normal 9.0-12.7 [facility] Comment on above: Order Comment: Speci men Type: BLOOD SPECIMEN Ordering Facility: [facility] Address: [address] [place] [address] Performed By: #### 5 8410-2 #### [facility] CLIA [id number] [address] [place] [address] [place] Platelets (Bld) [#/Vol] 240 10*3/uL Normal 150-400 [facility] Comment on above: Order Comment: Speci men Type: BLOOD SPECIMEN Ordering Facility: [facility] Address: [address] [place] [address] Performed By: #### 5 8410-2 #### [facility] CLIA [id number] [address] [place] [address] [place] RBC (Bld) [#/Vol] 4.55 10*6/uL Normal 3.90-5.20 [facility] Comment on above: Order Comment: Speci men Type: BLOOD SPECIMEN Ordering Facility: [facility] Address: [address] [place] [address] Performed By: #### 5 8410-2 #### [facility] CLIA [id number] [address] [place] [address] [place] WBC (Bld) [#/Vol] 6.04 10*3/uL Normal 3.70-11.00 [facility] Comment on above: Order Comment: Speci men Type: BLOOD SPECIMEN Ordering Facility: [facility] Address: [address] [place] [address] Performed By: #### 5 8410-2 #### [facility] CLIA [id number] [address] [place] [address] [place] CNDSon 05-01-2023 CNDS HNO ID: [id number] Author: Johnathan Karimi MD Service: Hospital Medicine Author Type: Physician Type: Discharge Summary Filed: 05/01/2023 2:01 PM Note Text: DISCHARGE SUMMARY PATIENT NAME: Sera Dewitt ADMISSION DATE: 04/29/2023 DISCHARGE DATE: 05/01/2023 ATTENDING PHYSICIAN: Johnathan Karimi,* Code Status: Not on file PCP: Galdino Cheung DO Highest Readmission Risk Score: 23 The 30 day readmissions risk score is derived from an internally validated risk model which evaluates patient level characteristics, utilization history, medication orders and lab results up until the day of discharge. Patients with a score of 40 or above are considered highest risk for readmission. Specific patient level drivers will be listed at the bottom of the summary. TRANSITIONS OF CARE CRITICAL ISSUES: ROE MEDICATION CHANGES: Vitamin D and HCTZ discontinued LAB MONITORING NEEDED: Not applicable IMAGING FOLLOW-UP: Not applicable LABS AND PROCEDURES PENDING AT DISCHARGE: No No pending results. FOLLOW UP: See follow up appointment listed below. REASON FOR HOSPITALIZATION: Syncope PRINCIPAL DIAGNOSIS: Vitamin D toxicity Hypercalcemia CHERI SECONDARY DIAGNOSIS: Principal Problem: Syncope, unspecified syncope type (POA: Yes) Active Problems: Fibromyalgia (POA: Yes) GERD (gastroesophageal reflux disease) (POA: Yes) Depression (POA: Yes) Primary hypertension (POA: Yes) CHERI (acute kidney injury) (HCC) (POA: Yes) Prolonged Q-T interval on ECG (POA: Yes) Hypercalcemia (POA: Yes) Leukocytosis (POA: Yes) Resolved Problems: * No resolved hospital problems. * HOSPITAL COURSE: 72 year old female with PMHx of depression, fibromyalgia, GERD, HTN, and NILE who presents from [place] ED for evaluation of possible syncope and abdominal pain. She was found to be clinically volume depleted and also had a calcium of 16.7 with a serum creatinine of 1.22 (normal baseline). She had a CT scan of the brain and abdomen in the ED which were negative. Her vitamin D and hydrochlorothiazide were discontinued and treated with IV fluids with both resolution of her hypercalcemia and CHERI. Her vitamin D level was elevated at 116. An echocardiogram was done which was unremarkable. she remained well and is being discharged home in a stable condition. OPERATIONS/PROCEDURE DURING THIS HOSPITALIZATION: * No surgery found * N/A CONSULTS DURING HOSPITALIZATION: Treatment Team: Attending Provider: Johnathan Karimi MD Primary Service: 5, [facility] No orders of the defined types were placed in this encounter. PATIENT CONDITION AT DISCHARGE: Stable ADVANCE CARE PLANNING DISCUSSION (if applicable): N/A DISCHARGE DISPOSITION: Home with Self Care Discharge Physical Exam: VITAL SIGNS: BP 153/68 Pulse 80 Temp 36.2 ?C (97.2 ?F) (Temporal) Resp 18 Ht 167.6 cm (5' 6 ) Wt 89.2 kg (196 lb 10.4 oz) SpO2 94% BMI 31.74 kg/m? GENERAL: Alert, no distress, cooperative OROPHARYNX: Lips, mucosa, and tongue normal. Teeth and gums normal. Oropharynx normal. LUNGS: Lungs clear to auscultation, Good diaphragmatic excursion CARDIAC: Normal S1 and S2; no rubs, murmurs, or gallops ABDOMEN: Abdomen soft, non-tender, BS normal, No masses or organomegaly EXTREMITIES: Normal exam of the extremities NEURO: Negative PULSES: 2+ radial, 2+ carotid WOUND/SURGICAL SITE CARE: None SUPPLIES OR EQUIPMENT: None DIET: Resume pre-hospital diet ACTIVITY AND EXERCISE: Resume pre-hospital activity ADDITIONAL INFORMATION: None FOLLOW UP APPOINTMENTS: No future appointments. ALLERGIES Allergen Reactions Kiwi Diarrhea, Vomiting Zosyn [Piperacillin* Shortness of Breath DISCHARGE MEDICATION: Medication List CONTINUE taking these medications atorvastatin 20 mg tablet Commonly known as: LIPITOR cyanocobalamin 100 mcg Tab Commonly known as: VITAMIN B-12 cyclobenzaprine 10 mg tablet Commonly known as: FLEXERIL DULoxetine 60 mg capsule Commonly known as: CYMBALTA Take 1 capsule by mouth once daily. ferrous sulfate 325 mg (65 mg iron) tablet fluticasone 50 mcg/actuation nasal spray Commonly known as: FLONASE USE 2 SPRAYS IN EACH NOSTRIL ONCE DAILY. gabapentin 600 mg tablet Commonly known as: NEURONTIN Take one tablet in am and one tablet in the evening for 7 days, then 1/2 tablet in the morning and one tablet in the evening for 7 days, then 1/2 tablet in the morning and 1/2 tablet in the evening for 7 days, then 1/2 tablet in the evening for 7 days, then stop. HYDROcodone-acetaminophen 5-325 mg per tablet Commonly known as: NORCO lidocaine HCL 4 % Ptmd meloxicam 7.5 mg tablet Commonly known as: MOBIC metoprolol succinate ER 50 mg 24 hr tablet Commonly known as: TOPROL XL nystatin powder Commonly known as: MYCOSTATIN oxybutynin XL 5 mg 24 hr tablet Commonly known as: DITROPAN XL Take 1 tablet by mouth daily at bedtime. pantoprazole 40 (more content not included)... Normal [facility] Comprehensive metabolic 2000 panelon 05-01-2023 Albumin [Mass/Vol] 3.3 g/dL Low 3.9-4.9 [facility] Comment on above: Order Comment: Specpatrice grewal Type: BLOOD SPECIMEN Ordering Facility: [facility] Address: [address] [place] [address] Performed By: #### 1 23-9, 46781-4 #### [facility] CLIA [id number] [address] [place] [address] [place] ALP [Catalytic activity/Vol] 70 U/L Normal 34-123 [facility] Comment on above: Order Comment: Speci uri Type: BLOOD SPECIMEN Ordering Facility: [facility] Address: [address] [place] [address] Performed By: #### 1 9, 11887-6 #### [facility] CLIA [id number] [address] [place] [facility] ALT [Catalytic activity/Vol] 16 U/L Normal 7-38 [facility] Comment on above: Order Comment: Speci men Type: BLOOD SPECIMEN Ordering Facility: [facility] Address: [address] [place] [address] Performed By: #### 1 23-9, 59571-6 #### [facility] CLIA [id number] [address] [place] Anion gap [Moles/Vol] 10 mmol/L Normal 9-18 [facility] Comment on above: Order Comment: Keena grewal Type: BLOOD SPECIMEN Ordering Facility: [facility] Address: [address] [place] [address] Performed By: #### 1 9123-02, #### [facility] CLIA [id number] [address] [place] [address] [place] AST [Catalytic activity/Vol] 23 U/L Normal 13-35 [facility] Comment on above: Order Comment: Speci men Type: BLOOD SPECIMEN Ordering Facility: [facility] Address: [address] [place] [address] Performed By: #### 1 9123-02, #### [facility] CLIA [id number] [address] [place] [address] [place] Bilirubin [Mass/Vol] 0.6 mg/dL Normal 0.2-1.3 [facility] Comment on above: Order Comment: Speci men Type: BLOOD SPECIMEN Ordering Facility: [facility] Address: [address] [place] [address] Performed By: #### 1 9123-02, #### [facility] CLIA [id number] [address] [place] [address] [place] Calcium [Mass/Vol] 11.1 mg/dL High 8.5-10.2 [facility] Comment on above: Order Comment: Speci men Type: BLOOD SPECIMEN Ordering Facility: [facility] Address: [address] [place] [address] Performed By: #### 1 9123-02, #### [facility] CLIA [id number] [address] [place] [address] [place] Chloride [Moles/Vol] 105 mmol/L Normal 97-105 [facility] Comment on above: Order Comment: Speci men Type: BLOOD SPECIMEN Ordering Facility: [facility] Address: [address] [place] [address] Performed By: #### 1 9, #### [facility] CLIA [id number] [address] [place] [address] [place] CO2 [Moles/Vol] 25 mmol/L Normal 22-30 [facility] Comment on above: Order Comment: Speci men Type: BLOOD SPECIMEN Ordering Facility: [facility] Address: [address] [place] [address] Performed By: #### 1 23-9, 66312-5 #### [facility] CLIA [id number] [address] [place] [address] [place] Creatinine [Mass/Vol] 0.95 mg/dL Normal 0.58-0.96 [facility] Comment on above: Order Comment: Keena grewal Type: BLOOD SPECIMEN Ordering Facility: [facility] Address: [address] [place] [address] Performed By: #### 1 9123-9, 98038-1 #### [facility] CLIA [id number] [address] Creatinine and Glomerular filtration rate.predicted panel (S/P/Bld) 64 mL/min/1.73m??? Normal >=60 [facility] Comment on above: Order Comment: Keena grewal Type: BLOOD SPECIMEN Ordering Facility: [facility] Address: [address] [place] [address] Result Comment: Brynn mated Glomerular Filtration Rate (eGFR) is calculated using the 2020 CKD-EPI creatinine equation. This equation utilizes serum creatinine, sex, and age as parameters. The creatinine assay has traceable calibration to isotope dilution-mass spectrometry. Refer to KDIGO guidelines for clinical interpretation. In patients with unstable renal function, e.g. those with acute kidney injury, the eGFR may not accurately reflect actual GFR. Performed By: #### 1 9123-9, 39252-3 #### [facility] CLIA [id number] [address] [place] Glucose [Mass/Vol] 100 mg/dL High 74-99 [facility] Comment on above: Order Comment: Keena grewal Type: BLOOD SPECIMEN Ordering Facility: [facility] Address: [address] [place] [address] Result Comment: The [place] Diabetes Association (ADA) provides guidance for cutoff values for fasting glucose and random glucose. The ADA defines fasting as no caloric intake for at least 8 hours. Fasting plasma glucose results between 100 to 125 mg/dL indicate increased risk for diabetes (prediabetes). Fasting plasma glucose results greater than or equal to 126 mg/dL meet the criteria for diagnosis of diabetes. In the absence of unequivocal hyperglycemia, results should be confirmed by repeat testing. In a patient with classic symptoms of hyperglycemia or hyperglycemic crisis, random plasma glucose results greater than or equal to 200 mg/dL meet the criteria for diagnosis of diabetes. Reference: Standards of Medical Care in Diabetes 2016, [place] [employer] Association. Diabetes Care. 2016.39(Suppl 1). Performed By: #### 1 9, 42065-4 #### [facility] CLIA [id number] [address] [place] [address] [place] Potassium [Moles/Vol] 3.4 mmol/L Low 3.7-5.1 [facility] Comment on above: Order Comment: Speci men Type: BLOOD SPECIMEN Ordering Facility: [facility] Address: [address] [place] [address] Performed By: #### 1 9123-02, #### [facility] CLIA [id number] [address] [place] Protein [Mass/Vol] 5.7 g/dL Low 6.3-8.0 [facility] Comment on above: Order Comment: Keena men Type: BLOOD SPECIMEN Ordering Facility: [facility] Address: [address] [place] [address] Performed By: #### 1 9123-02, 39701-6 #### [facility] CLIA [id number] [address] [place] [facility] Sodium [Moles/Vol] 140 mmol/L Normal 136-144 [facility] Comment on above: Order Comment: Mini men Type: BLOOD SPECIMEN Ordering Facility: [facility] Address: [address] [place] [address] Performed By: #### 1 9123-02, #### [facility] CLIA [id number] [address] [place] Urea nitrogen [Mass/Vol] 10 mg/dL Normal 7-21 [facility] Comment on above: Order Comment: Mini men Type: BLOOD SPECIMEN Ordering Facility: [facility] Address: [address] [place] [address] Performed By: #### 1 9123-02, 50665-4 #### [facility] CLIA [id number] [address] [place] [address] [place] Magnesium [facility] 05-01 Magnesium [Mass/Vol] 2.0 mg/dL Normal 1.7-2.3 [facility] Comment on above: Order Comment: Speci men Type: BLOOD SPECIMEN Ordering Facility: [facility] Address: [address] [place] [address] Performed By: #### 1 9123-9, 41765-1 #### [facility] CLIA [id number] [address] 25([place])D3 [facility] 2022 25-hydroxyvitamin D3 [Mass/Vol] 116.0 ng/mL High 31.0-80.0 [facility] Comment on above: Order Comment: Speci men Type: BLOOD SPECIMEN Ordering Facility: [facility] Address: [address] [place] [address] Result Comment: Clas sification of 25 [place] Vitamin D status: Deficiency/Insufficiency: < or = 30 ng/ml. Sufficiency/Optimal Levels: 31-80 ng/mL Toxicity: > 100 ng/mL. Test performed by chemiluminescent immunoassay. Performed By: #### 2 4323-8, 44508-9 #### [facility] CLIA [id number] [address] CASE MGT INIT ASSESon 2022 CASE MGT INIT ASSES HNO ID: [id number] Author: Eunice Melo LSW Service: ASSESSMENT Author Type: Upper [place] Lacer Hand Type: Care Mgt Initial Assessment Filed: 04/30/2023 12:44 PM Note Text: CARE MANAGEMENT: ASSESSMENT AND DISCHARGE PLAN SERVICE DATE: April 30, 2023 SERVICE TIME: 12:42 PM PCP: Suzanne Hunt Primary Contact: Extended Emergency Contact Information Primary Emergency Contact: David Dewitt Address: [address] [place] [address] [place] Mobile Relation: Spouse Secondary Emergency Contact: Marni Dewitt Mobile Relation: Daughter Admission Status: Observation Insurance Provider: MEDICARE A AND B Discharge Planning requested by: Per Department Practice Potential Transition Plans Home;To Be Determined Advance Directives Current Advance Directive: None Stamp Presser Attempted to Assist with AD Completion: Yes Action: Education Provided Current Living Arrangements and Support Lives with: Spouse/significant other Type of Residence: Private Residence (House) Does the patient have to climb stairs at home?: Yes;stairs outside the home;stairs within the home Support: Family members, Spouse/significant other How do you manage to accomplish the following: Independent: Bathe/Shower;Dress;Meals/Sarai l Prep;Going to the bathroom;Medication Management;Transportation to appointments/community Needs Assistance: Ambulation Current Services/Equipment Current Post-Acute Service(s): DME Current DME Type: Cane Current Post-Acute Service(s) Provider: N/A Discharge Planning Patient Goal(s): General wellness, Be able to go home, Independent living [place] of Choice Explained: [place] of Choice Given: No Reason Not Given: Unable to complete with this assessment - revisit Are you interested in bedside delivery of your medications? No Discharge Planning Participant(s): Patient Patient/Family Comments: Pt. would like to return home w/spouse. Caregiver Assessment: Caregiver is ready, willing and able to meet the patient's needs as recommended by the inter-professional team: Other: See Comment (TBD) Transport at Discharge: Transportation Arrangements: To Be Determined Needs Prior to Discharge: Needs Prior to Discharge: To Be Determined Post-Acute Discharge Plan: SW met w/pt. Bedside. SW introduced self, explained role and completed an assessment. Pt. Has been admitted for syncope. Pt. Reports that she lives at home w/her spouse, is mostly I-ADLs (uses a cane PRN) and able to meet her own basic needs. Pt. Reports upon discharge she plans to return home. CM assigned will continue to follow for discharge planning needs. Spouse to transport when medically ready for discharge. SIGNATURE: Eunice Melo MSW, CAN REPAIRER PATIENT NAME: Sera Dewitt DATE: April 30, 2023 TIME: 12:42 PM CONTACT #: Normal [facility] CBC panel Auto (Bld)on 04-30 Erythrocyte distribution width (RBC) [Ratio] 13.9 % Normal 11.5-15.0 [facility] Comment on above: Order Comment: Speci men Type: BLOOD SPECIMEN Ordering Facility: [facility] Address: [address] [place] [address] Performed By: #### 2 4323-01, #### [facility] CLIA [id number] [address] Hematocrit (Bld) [Volume fraction] 43.3 % Normal 36.0-46.0 [facility] Comment on above: Order Comment: Speci men Type: BLOOD SPECIMEN Ordering Facility: [facility] Address: [address] [place] [address] Performed By: #### 2 4323-01, #### [facility] CLIA [id number] [address] [place] Hemoglobin (Bld) [Mass/Vol] 14.4 g/dL Normal 11.5-15.5 [facility] Comment on above: Order Comment: Speci men Type: BLOOD SPECIMEN Ordering Facility: [facility] Address: [address] [place] [address] Performed By: #### 2 4323-01, #### [facility] CLIA [id number] [address] MCH (RBC) [Entitic mass] 29.9 pg Normal 26.0-34.0 [facility] Comment on above: Order Comment: Speci men Type: BLOOD SPECIMEN Ordering Facility: [facility] Address: [address] [place] [address] Performed By: #### 2 4323-01, #### [facility] CLIA [id number] [address] [place] MCHC (RBC) [Mass/Vol] 33.3 g/dL Normal 30.5-36.0 [facility] Comment on above: Order Comment: Speci men Type: BLOOD SPECIMEN Ordering Facility: [facility] Address: [address] [place] [address] Performed By: #### 2 43208-22, #### [facility] CLIA [id number] [address] MCV (RBC) [Entitic vol] 90.0 fL Normal 80.0-100.0 [facility] Comment on above: Order Comment: Speci men Type: BLOOD SPECIMEN Ordering Facility: [facility] Address: [address] [place] [address] Performed By: #### 2 4322-8, #### [facility] CLIA [id number] [address] [place] [address] [place] Nucleated RBC (Bld) [#/Vol] 10*3/uL Normal <0.01 [facility] Comment on above: Order Comment: Speci men Type: BLOOD SPECIMEN Ordering Facility: [facility] Address: [address] [place] [address] Performed By: #### 2 8, #### [facility] CLIA [id number] [address] [place] [address] [place] Platelet mean volume (Bld) [Entitic vol] 9.7 fL Normal 9.0-12.7 [facility] Comment on above: Order Comment: Speci men Type: BLOOD SPECIMEN Ordering Facility: [facility] Address: [address] [place] [address] Performed By: #### 2 8, #### [facility] CLIA [id number] [address] [place] Platelets (Bld) [#/Vol] 268 10*3/uL Normal 150-400 [facility] Comment on above: Order Comment: Speci men Type: BLOOD SPECIMEN Ordering Facility: [facility] Address: [address] [place] [address] Performed By: #### 2 8, #### [facility] CLIA [id number] [address] [place] [address] [place] RBC (Bld) [#/Vol] 4.81 10*6/uL Normal 3.90-5.20 [facility] Comment on above: Order Comment: Speci men Type: BLOOD SPECIMEN Ordering Facility: [facility] Address: [address] [place] [address] Performed By: #### 2 8, 12971-1 #### [facility] CLIA [id number] [address] [place] [address] [place] WBC (Bld) [#/Vol] 8.84 10*3/uL Normal 3.70-11.00 [facility] Comment on above: Order Comment: Speci men Type: BLOOD SPECIMEN Ordering Facility: [facility] Address: [address] [place] [address] Performed By: #### 2 4323-8, #### [facility] CLIA [id number] [address] [place] [address] [facility] [place] Comprehensive metabolic 2000 panelon 04-30-2023 Albumin [Mass/Vol] 3.8 g/dL Low 3.9-4.9 [facility] Comment on above: Order Comment: Speci men Type: BLOOD SPECIMEN Ordering Facility: [facility] Address: [address] [place] [address] Performed By: #### 2 43238, #### [facility] CLIA [id number] [address] [place] ALP [Catalytic activity/Vol] 74 U/L Normal 34-123 [facility] Comment on above: Order Comment: Speci men Type: BLOOD SPECIMEN Ordering Facility: [facility] Address: [address] [place] [address] Performed By: #### 2 4323-8, #### [facility] CLIA [id number] [address] ALT [Catalytic activity/Vol] 17 U/L Normal 7-38 [facility] Comment on above: Order Comment: Speci men Type: BLOOD SPECIMEN Ordering Facility: [facility] Address: [address] [place] [address] Performed By: #### 2 4323-8, #### [facility] CLIA [id number] [address] Anion gap [Moles/Vol] 9 mmol/L Normal 9-18 [facility] Comment on above: Order Comment: Speci men Type: BLOOD SPECIMEN Ordering Facility: [facility] Address: [address] [place] [address] Performed By: #### 2 4323-8, #### [facility] CLIA [id number] [address] [place] [address] [place] AST [Catalytic activity/Vol] 23 U/L Normal 13-35 [facility] Comment on above: Order Comment: Speci men Type: BLOOD SPECIMEN Ordering Facility: [facility] Address: [address] [place] [address] Performed By: #### 2 432-8, #### [facility] CLIA [id number] [address] [place] [address] [place] Bilirubin [Mass/Vol] 0.7 mg/dL Normal 0.2-1.3 [facility] Comment on above: Order Comment: Speci men Type: BLOOD SPECIMEN Ordering Facility: [facility] Address: [address] [place] [address] Performed By: #### 2 4328, #### [facility] CLIA [id number] [address] [place] [address] [place] Calcium [Mass/Vol] 13.3 mg/dL High 8.5-10.2 [facility] Comment on above: Order Comment: Speci men Type: BLOOD SPECIMEN Ordering Facility: [facility] Address: [address] [place] [address] Performed By: #### 2 432-8, #### [facility] CLIA [id number] [address] [place] [address] [place] Chloride [Moles/Vol] 99 mmol/L Normal 97-105 [facility] Comment on above: Order Comment: Speci men Type: BLOOD SPECIMEN Ordering Facility: [facility] Address: [address] [place] [address] Performed By: #### 2 432-8, #### [facility] CLIA [id number] [address] [place] [address] [place] CO2 [Moles/Vol] 29 mmol/L Normal 22-30 [facility] Comment on above: Order Comment: Speci men Type: BLOOD SPECIMEN Ordering Facility: [facility] Address: [address] [place] [address] Performed By: #### 2 4323-8, #### [facility] CLIA [id number] [address] [place] [address] [place] Creatinine [Mass/Vol] 1.22 mg/dL High 0.58-0.96 [facility] Comment on above: Order Comment: Keena grewal Type: BLOOD SPECIMEN Ordering Facility: [facility] Address: [address] [place] [address] Performed By: #### 2 4323-8, #### [facility] CLIA [id number] [address] [place] [address] [facility] [place] Creatinine and Glomerular filtration rate.predicted panel (S/P/Bld) 47 mL/min/1.73m??? Low >=60 [facility] Comment on above: Order Comment: Keena grewal Type: BLOOD SPECIMEN Ordering Facility: [facility] Address: [address] [place] [address] Result Comment: Brynn mated Glomerular Filtration Rate (eGFR) is calculated using the 2020 CKD-EPI creatinine equation. This equation utilizes serum creatinine, sex, and age as parameters. The creatinine assay has traceable calibration to isotope dilution-mass spectrometry. Refer to KDIGO guidelines for clinical interpretation. In patients with unstable renal function, e.g. those with acute kidney injury, the eGFR may not accurately reflect actual GFR. Performed By: #### 2 4323-8, 90994-7 #### [facility] CLIA [id number] [address] [place] [address] [place] Glucose [Mass/Vol] 103 mg/dL High 74-99 [facility] Comment on above: Order Comment: Keena grewal Type: BLOOD SPECIMEN Ordering Facility: [facility] Address: [address] [place] [address] Result Comment: The [place] Diabetes Association (ADA) provides guidance for cutoff values for fasting glucose and random glucose. The ADA defines fasting as no caloric intake for at least 8 hours. Fasting plasma glucose results between 100 to 125 mg/dL indicate increased risk for diabetes (prediabetes). Fasting plasma glucose results greater than or equal to 126 mg/dL meet the criteria for diagnosis of diabetes. In the absence of unequivocal hyperglycemia, results should be confirmed by repeat testing. In a patient with classic symptoms of hyperglycemia or hyperglycemic crisis, random plasma glucose results greater than or equal to 200 mg/dL meet the criteria for diagnosis of diabetes. Reference: Standards of Medical Care in Diabetes 2016, [place] [employer]. Diabetes Care. 2016.39(Suppl 1). Performed By: #### 2 4328, #### [facility] CLIA [id number] [address] [place] [address] [place] Potassium [Moles/Vol] 3.1 mmol/L Low 3.7-5.1 [facility] Comment on above: Order Comment: Speci men Type: BLOOD SPECIMEN Ordering Facility: [facility] Address: [address] [place] [address] Performed By: #### 2 4323-01, #### [facility] CLIA [id number] [address] [place] [address] [place] Protein [Mass/Vol] 6.0 g/dL Low 6.3-8.0 [facility] Comment on above: Order Comment: Speci men Type: BLOOD SPECIMEN Ordering Facility: [facility] Address: [address] [place] [address] Performed By: #### 2 4323-01, #### [facility] CLIA [id number] [address] [place] [address] [place] Sodium [Moles/Vol] 137 mmol/L Normal 136-144 [facility] Comment on above: Order Comment: Mini men Type: BLOOD SPECIMEN Ordering Facility: [facility] Address: [address] [place] [address] Performed By: #### 2 4323-01, #### [facility] CLIA [id number] [address] [place] [address] [place] Urea nitrogen [Mass/Vol] 11 mg/dL Normal 7-21 [facility] Comment on above: Order Comment: Mini men Type: BLOOD SPECIMEN Ordering Facility: [facility] Address: [address] [place] [address] Performed By: #### 2 4323-01, #### [facility] CLIA [id number] [address] [place] [address] [place] ECHO 04-30-2023 Echocardiography Echocardiography Rep ort: Transthoracic Echo [facility] Date of service: 04/30/2023 12:21:52 PM Ordering physician: SEE RHOADES Indication: syncope Technologist: Kat Anguiano [facility] Interpreting physician: Hortensia Luna MD PATIENT: Name: MRS. SERA DEWITT : 1950 Age: 72 years Gender: F History of hypertension. Primary rhythm: sinus. Height: 167.60 cm BSA: 2.04 m Weight: 89.20 kg BMI: 31.8 kg/m Heart rate 75 bpm Blood pressure 157/70 mmHg Technically difficult exam due to body habitus and COPD, lung and breathing interference. Color Doppler was utilized to interrogate the cardiac valves assessed and spectral Doppler was utilized to determine the flow velocities and pressure gradients reported in this exam. MEASUREMENTS: Value Indexed Normal Max aortic dimension 2.9 cm Ao < 3.8 Left atrial volume 51 ml (4ch A-L) 25 ml/m Jordan <= 34 Ejection Fraction 60 % (visual est.) EF > 54 FINDINGS: LEFT VENTRICLE Left ventricular systolic function is normal. Left ventricular diastolic function was not evaluated due to inconsistent or technically suboptimal data. Mitral annular lateral E/e': 23.6. Mitral annular septal E/e': 12.4. Definity contrast used for endocardial border detection. Wall Motion: The entire anterior wall, entire lateral wall, entire septum, entire apex, and entire inferior wall are hyperkinetic. RIGHT VENTRICLE The right ventricle is normal in size. Right ventricular systolic function is normal. RV systolic tissue Doppler velocity is 9.6 cm/s. Tricuspid annular displacement is 1.9 cm. Estimated right ventricular systolic pressure is not reported due to an insufficient tricuspid regurgitation signal. Estimated right atrial pressure is not included as the IVC was not seen. LEFT ATRIUM The left atrial cavity is normal in size. RIGHT ATRIUM The right atrial cavity is normal in size. MITRAL VALVE There is mild (1+ - 2+) mitral valve regurgitation. There is mild thickening of the posterior mitral leaflet. The pressure half time is 105 msec. The peak mitral E/A ratio is 0.56. The average mitral E/e' ratio is 18.0. The mitral flow deceleration time is 362 msec. TRICUSPID VALVE The tricuspid valve leaflets are structurally normal. There is no tricuspid valve regurgitation. AORTIC VALVE The aortic valve is not well visualized. There does not appear to be aortic stenosis. There is no aortic valve regurgitation. There is mild calcification. The peak gradient is 10 mmHg (peak velocity = 158.8 cm/s). PULMONIC VALVE The pulmonic valve was not seen or not interrogated. AORTA The visualized aorta is normal in size. Measurements - Mid ascending aorta 2.9 cm. PERICARDIUM There is no pericardial effusion. There is an epicardial fat pad. CONCLUSIONS: - Technically difficult exam due to body habitus and COPD, lung and breathing interference. - Exam indication: syncope - Left ventricular systolic function is normal. EF = 60 5% (visual est.) Definity contrast used for endocardial border detection. Left ventricular diastolic function was not evaluated due to inconsistent or technically suboptimal data. The LV size is probably normal. - Unable to accurately assess LV wall thickness due to poor visualization of LV ramos. - The right ventricle is normal in size. Right ventricular systolic function is normal. - There is mild (1+) mitral regurgitation. - Aortic valve is not well-visualized. There does not appear to be aortic stenosis by peak AV velocity. - Exam was compared with the prior CC echocardiographic exam performed on 12-11-21. EF unchanged from prior. Mild MR on today's compared to trace MR in 2021. * * * Final (Updated) * * * CC [employer] : [id number] Normal [facility] HISTORY PHYSICALon 3 HISTORY PHYSICAL HNO ID: [id number] Author: See Rhoades PA-C Service: Hospital Medicine Author Type: Physician Felt Hat Inspector And Packer Type: HANDP Filed: 04/30/2023 1:20 AM Note Text: Attestation signed by Dieudonne Diaz MD at 04/30/2023 7:11 AM I have not assessed this patient face to face. Case was discussed with BILLIE. I agree with history, physical, assessment and plan as documented below. DEPARTMENT OF HOSPITAL MEDICINE HISTORY AND PHYSICAL EXAM SERVICE DATE: 04/30/2023 Code Status: Not on file SERVICE TIME: 1:17 AM Primary Care Physician: Galdino Cheung, NIGHT AND WEEKEND COVERAGE: [facility] COVERAGE: Days: [phone], please page attending physician. Nights: [phone], please page [place] [facility] Night coverage pager [phone]. Subjective CHIEF COMPLAINT: Passed out HPI: This is a 72 year old female with PMHx of depression, fibromyalgia, GERD, HTN, and NILE who presents from [facility] for evaluation of possible syncope. Patient states that she passed out twice today. She tells me the first time was around 9AM when she got out of bed and walked to the bathroom. She states she doesn't remember feeling dizzy but remembers waking up on the floor. The second time was about 30 minutes later when she once again got up from bed and walked to the bathroom and passed out. Her witnessed this episode. She does not think she hit her head but is unsure. She does have some neck pain. She is not on blood thinners. She does have a history of syncope in the past resulting in multiple admissions. They were thought to be due to polypharmacy as well as orthostatic hypotension. Patient does state that she had a sour stomach all week and has been taking Tums for this. She denies fever, chills, chest pain, shortness of breath, abdominal pain, nausea, vomiting, diarrhea, dysuria, or leg swelling. In ED, EKG ST @ 107, QTc 493. WBC 11.30 w/LS. Ca 16.7. Ionized calcium >1.82. Cr 1.17. Na 135 (corrected 137). PTH in process. HsT 17, 16, 16. TSH WNL. XR Pelvis: no acute findings. CXR: no acute findings. CT Brain: no acute findings. Scattered patchy foci of low attenuation are present within supratentorial white matter which is a nonspecific finding but likely represents mild microvascular ischemia. Remote lacunar infarct right-sided basal ganglia. CT ABD/PEL: no acute findings. She was given IVF and Pepcid prior to transfer to [facility]. PAST MEDICAL HISTORY Diagnosis Date Anemia Burning mouth syndrome Depression Fibromyalgia GERD (gastroesophageal reflux disease) Hyperhidrosis Hypertension Insomnia Sleep apnea CPAP Vitamin D deficiency PAST SURGICAL HISTORY Procedure Laterality Date ARTHRP KNE CONDYLEANDPLATU MEDIALANDLAT COMPARTMENTS Bilateral 04/2012 COLONOSCOPY 07/05/2022 COLONOSCOPY 07/05/2022 EGD 07/05/2022 EGD 07/05/2022 repeat in 3 months FOOT SURGERY HX Left HYSTERECTOMY HX ORTHOPEDICS SURGERY HX left thr ORTHOPEDICS SURGERY HX bilateral tkr TONSILLECTOMY AND ADENOIDECTOMY HX Childhood TONSILLECTOMY HX VAGINAL HYSTERECTOMY UTERUS 250 GM/< 1982 Hysterectomy, vaginal FAMILY HISTORY Problem Relation Age of Onset Colon Cancer Mother Diabetes Mother Stroke Mother Alzheimer's Disease Mother Emphysema Father Diabetes Brother Seizures Brother Social History Tobacco Use Smoking status: Former Packs/day: .5 Types: Cigarettes Start date: 02/21/1964 Smokeless tobacco: Never Tobacco comments: Reports quit smoking in [facility] Vaping Use Vaping Use: Never used Substance Use Topics Alcohol use: No Drug use: No PRIOR TO ADMISSION MEDICATIONS: atorvastatin (LIPITOR) 20 mg tablet, Take 20 mg by mouth once daily., Disp: , Rfl: lidocaine HCL 4 % ptmd, Apply 1 Patch to affected area as needed., Disp: , Rfl: pantoprazole DR (PROTONIX) 40 mg tablet, TAKE 1 TABLET BY MOUTH TWICE A DAY, Disp: 60 tablet, Rfl: 0 zolpidem tartrate (ZOLPIDEM ORAL), Take 5 mg by mouth daily at bedtime., Disp: , Rfl: hydroCHLOROthiazide (HYDRODIURIL, ESIDRIX) 25 mg tablet, Take 25 mg by mouth once daily as needed. FOR SWELLING, Disp: , Rfl: POTASSIUM CHLORIDE 2.5 MEQ TAB, 60 mEq three times daily., Disp: , Rfl: predniSONE (DELTASONE) 10 mg tablet, Take 10 mg by mouth once daily as needed. TAKE 3-5 DAYS WITH FLARE UPS, Disp: , Rfl: metoprolol succinate ER (TOPROL XL) 50 mg 24 hr tablet, Take 50 mg by mouth once daily., Disp: , Rfl: nystatin (MYCOSTATIN) powder, Apply to affected area once daily as needed., Disp: , Rfl: cyanocobalamin (VITAMIN B-12) 100 mcg tab, Take 1,000 mcg by mouth once daily., Disp: , Rfl: cholecalciferol, vitamin D3, 10 mcg (400 unit) cap, Take 50,000 Units by mouth once daily., Disp: , Rfl: HYDROcodone-acetaminophen (NORCO) 5-325 mg per tablet, Take 1 tablet by salo (more content not included)... Normal [facility] Magnesium SerPl-mCncon 04-30 Magnesium [Mass/Vol] 1.5 mg/dL Low 1.7-2.3 [facility] Comment on above: Order Comment: Speci men Type: BLOOD SPECIMEN Ordering Facility: [facility] Address: [address] [place] [address] Performed By: #### 2 4323-8, 91528-7 #### [facility] CLIA [id number] [address] [place] [address] [facility] [place] NURSING PROGon 04-30-2023 NURSING PROG HNO ID: [id number] Author: Scott Maldonado RN Service: Nursing Author Type: Registered Nurse Type: Nursing Progress Note Filed: 04/30/2023 10:22 AM Note Text: Event(s) / Intervention Note: PATIENT NAME: Sera Dewitt Patient Location: [place] [address]/[id number]- Room: [place] [address] The patient was observed having the following problems: Patient's daughter called RN to room stating that patient is attempting to take home medications from purse. The time of the event occurred at: 1010. The following intervention(s) were initiated: Patient allowed RN to look in her purse where RN found HcT and [place]. Patient states she was trying to take both for a sour stomach . RN educated patient on medications and only taking medications given to her from staff. Medications given to daughter to take home. No other medications found in patient's belongings. After the initiated interventions, the following observation(s) were made: nothing further noted. Will continue to observe and check with patient.. [facility] 04-29-2023 ALLIED [facility]ALTH HNO ID: [id number] Author: Jennifer Atkins RT(R) Service: ? Author Type: Technologist Type: Allied Health Filed: 04/29/2023 3:56 PM Note Text: Radiology Service Progress Note PATIENT NAME: Sera Dewitt DATE OF SERVICE: April 29, 2023 TIME: 3:56 PM PATIENT IDENTITY VERIFICATION COMPLETED USING TWO (2) IDENTIFIERS: Name and Date of confirmed by patient verbally. FALL SCREENING: Has the patient had 2 falls in the last year or 1 fall with injury or currently using an Ambulatory Assistive Device (Walker, Cane, Wheelchair, Crutches, etc.)? Emergency Room Patient: Screened in ED PATIENT GENDER DATA: Female. status: : No status: NO. PATIENT RELEVANT IMPLANT DATA REVIEWED: Not Applicable RADIOLOGY DEPARTMENT: General X-ray: Exam(s) Completed: Chest X-Ray Pelvis X-Ray: Pelvis General AP PERIPHERAL IV DATA: Not applicable SIGNED BY: RT Tyler(R) April 29, 2023 3:56 PM [facility]IED [facility] HNO ID: [id number] Author: Gauri Pagan RT(R) Service: ? Author Type: Customer Engineering Specialist Type: Allied Health Filed: 04/29/2023 3:54 PM Note Text: Radiology Service Progress Note DATE OF SERVICE: April 29, 2023 TIME: 3:53 PM PATIENT IDENTITY VERIFICATION COMPLETED USING TWO (2) STANDARD IDENTIFIERS: Name and Date of confirmed by patient verbally. FALL SCREENING: Has the patient had 2 falls in the last year or 1 fall with injury or currently using an Ambulatory Assistive Device (Walker, Cane, Wheelchair, Crutches, etc.)? Emergency Room Patient: Screened in ED PATIENT GENDER DATA: Female. status: : No status: NO. PATIENT RELEVANT IMPLANT DATA REVIEWED: Not Applicable ALLERGIES: Reviewed and unchanged CONTRAST ALLERGY: NO. EXAM: CT -CONTRAST INDUCED NEPHROPATHY RISK FACTORS: Patient age > 60 years CREATININE: Creatinine Date Value Ref Range Status 04/29/2023 1.17 (H) 0.58 - 0.96 mg/dL Final 03/13/2022 1.18 (H) 0.58 - 0.96 mg/dL Final 01/05/2022 0.91 0.58 - 0.96 mg/dL Final Estimated Glomerular Filtration Rate Date Value Ref Range Status 04/29/2023 50 (L) >=60 mL/min/1.73m? Final Comment: Estimated Glomerular Filtration Rate (eGFR) is calculated using the 2020 CKD-EPI creatinine equation. This equation utilizes serum creatinine, sex, and age as parameters. The creatinine assay has traceable calibration to isotope dilution-mass spectrometry. Refer to KDIGO guidelines for clinical interpretation. In patients with unstable renal function, e.g. those with acute kidney injury, the eGFR may not accurately reflect actual GFR. eGFR- Date Value Ref Range Status 07/02/2021 >60 Final P.O.C.T. RESULTS: POC done: Yes, See Lab Tab April 29, 2023 TREATMENT: N/A PERIPHERAL IV DATA: Inpatient - refer to LDA documentation RADIOLOGY DEPARTMENT: CT; Exam(s) Completed: Abdomen/Pelvis and Brain SIGNATURE: RT Farhan(R) PATIENT NAME: Sera Dewitt DATE: April 29, 2023 TIME: 3:53 PM Normal [facility] CBC W Auto Differential pane l (Bld)on 04-29-2023 Basophils (Bld) [#/Vol] 0.05 10*3/uL Normal <0.11 [facility] Comment on above: Order Comment: Keena grewal Type: BLOOD SPECIMEN Ordering Facility: [facility] Address: [address] [place] [address] Performed By: #### 5 7021-8 #### [facility] CLIA [id number] [address] [place] [address] [facility] Basophils/100 WBC (Bld) 0.4 % Normal [facility] Comment on above: Order Comment: Keena grewal Type: BLOOD SPECIMEN Ordering Facility: [facility] Address: [address] [place] [address] Performed By: #### 5 7021-8 #### [facility] CLIA [id number] [address] [place] [address] [facility] [place] Differential cell count method Nom (Bld) Auto Normal [facility] Comment on above: Order Comment: Speci men Type: BLOOD SPECIMEN Ordering Facility: [facility] Address: [address] [place] [address] Performed By: #### 5 7021-8 #### [facility] CLIA [id number] [address] [place] [id number] [place] Eosinophils (Bld) [#/Vol] 0.18 10*3/uL Normal <0.46 [facility] Comment on above: Order Comment: Speci men Type: BLOOD SPECIMEN Ordering Facility: [facility] Address: [address] [place] [address] Performed By: #### 5 7021-8 #### [facility] CLIA [id number] [address] [place] [address] Eosinophils/100 WBC (Bld) 1.6 % Normal [facility] Comment on above: Order Comment: Speci men Type: BLOOD SPECIMEN Ordering Facility: [facility] Address: [address] [place] [address] Performed By: #### 5 7021-8 #### [facility] CLIA [id number] [address] [place] [address] [place] Erythrocyte distribution width (RBC) [Ratio] 14.0 % Normal 11.5-15.0 [facility] Comment on above: Order Comment: Speci men Type: BLOOD SPECIMEN Ordering Facility: [facility] Address: [address] [place] [address] Performed By: #### 5 7021-8 #### [facility] CLIA [id number] [address] [place] [address] [place] Hematocrit (Bld) [Volume fraction] 51.1 % High 36.0-46.0 [facility] Comment on above: Order Comment: Speci men Type: BLOOD SPECIMEN Ordering Facility: [facility] Address: [address] [place] [address] Performed By: #### 5 7021-8 #### [facility] CLIA [id number] [address] [place] [address] [place] Hemoglobin (Bld) [Mass/Vol] 16.5 g/dL High 11.5-15.5 [facility] Comment on above: Order Comment: Speci men Type: BLOOD SPECIMEN Ordering Facility: [facility] Address: [address] [place] [address] Performed By: #### 5 7021-8 #### [facility] CLIA [id number] [address] [place] [address] [place] Immature granulocytes (Bld) [#/Vol] 0.03 10*3/uL Normal <0.10 [facility] Comment on above: Order Comment: Speci men Type: BLOOD SPECIMEN Ordering Facility: [facility] Address: [address] [place] [address] Performed By: #### 5 7021-8 #### [facility] CLIA [id number] [address] [place] [address] [place] Immature granulocytes/100 WBC (Bld) 0.3 % Normal [facility] Comment on above: Order Comment: Speci men Type: BLOOD SPECIMEN Ordering Facility: [facility] Address: [address] [place] [address] Performed By: #### 5 7021-8 #### [facility] CLIA [id number] [address] [place], [place] [id number] [place] Lymphocytes (Bld) [#/Vol] 1.53 10*3/uL Normal 1.00-4.00 [facility] Comment on above: Order Comment: Speci men Type: BLOOD SPECIMEN Ordering Facility: [facility] Address: [address] [place] [address] Performed By: #### 5 7021-8 #### [facility] CLIA [id number] [address] [place] [id number] [place] Lymphocytes/100 WBC (Bld) 13.5 % Normal [facility] Comment on above: Order Comment: Speci men Type: BLOOD SPECIMEN Ordering Facility: [facility] Address: [address] [place] [address] Performed By: #### 5 7021-8 #### [facility] CLIA [id number] [address] [place], [place] [address] [place] [address] [place] MCH (RBC) [Entitic mass] 29.4 pg Normal 26.0-34.0 [facility] Comment on above: Order Comment: Speci men Type: BLOOD SPECIMEN Ordering Facility: [facility] Address: [address] [place] [address] Performed By: #### 5 7021-8 #### [facility] CLIA [id number] [address] [place] MCHC (RBC) [Mass/Vol] 32.3 g/dL Normal 30.5-36.0 [facility] Comment on above: Order Comment: Speci men Type: BLOOD SPECIMEN Ordering Facility: [facility] Address: [address] [place] [address] Performed By: #### 5 7021-8 #### [facility] CLIA [id number] [address] [place] [address] [place] MCV (RBC) [Entitic vol] 91.1 fL Normal 80.0-100.0 [facility] Comment on above: Order Comment: Speci men Type: BLOOD SPECIMEN Ordering Facility: [facility] Address: [address] [place] [address] Performed By: #### 5 7021-8 #### [facility] CLIA [id number] [address] [place] [id number] [facility] Monocytes (Bld) [#/Vol] 0.61 10*3/uL Normal <0.87 [facility] Comment on above: Order Comment: Speci men Type: BLOOD SPECIMEN Ordering Facility: [facility] Address: [address] [place] [address] Performed By: #### 5 7021-8 #### [facility] CLIA [id number] [address] [place] [address] [place] Monocytes/100 WBC (Bld) 5.4 % Normal [facility] Comment on above: Order Comment: Speci men Type: BLOOD SPECIMEN Ordering Facility: [facility] Address: [address] [place] [address] Performed By: #### 5 7021-8 #### [facility] CLIA [id number] [address] [place] [address] [place] Neutrophils (Bld) [#/Vol] 8.90 10*3/uL High 1.45-7.50 [facility] Comment on above: Order Comment: Speci men Type: BLOOD SPECIMEN Ordering Facility: [facility] Address: [address] [place] [address] Performed By: #### 5 7021-8 #### [facility] CLIA [id number] [address] [place] [address] [place] Neutrophils/100 WBC (Bld) 78.8 % Normal [facility] Comment on above: Order Comment: Speci men Type: BLOOD SPECIMEN Ordering Facility: [facility] Address: [address] [place] [address] Performed By: #### 5 7021-8 #### [facility] CLIA [id number] [address] [place] [address] [place] Nucleated RBC (Bld) [#/Vol] Normal [facility] Comment on above: Order Comment: Speci men Type: BLOOD SPECIMEN Ordering Facility: [facility] Address: [address] [place] [address] Performed By: #### 5 7021-8 #### [facility] CLIA [id number] [address] [place] [address] [place] Nucleated RBC/100 WBC (Bld) [Ratio] Normal [facility] Comment on above: Order Comment: Speci men Type: BLOOD SPECIMEN Ordering Facility: [facility] Address: [address] [place] [address] Performed By: #### 5 7021-8 #### [facility] CLIA [id number] [address] [place] [address] [place] Platelet mean volume (Bld) [Entitic vol] 9.2 fL Normal 9.0-12.7 [facility] Comment on above: Order Comment: Speci men Type: BLOOD SPECIMEN Ordering Facility: [facility] Address: [address] [place] [address] Performed By: #### 5 7021-8 #### [facility] CLIA [id number] [address] [place] [address] [place] Platelets (Bld) [#/Vol] 318 10*3/uL Normal 150-400 [facility] Comment on above: Order Comment: Speci men Type: BLOOD SPECIMEN Ordering Facility: [facility] Address: [address] [place] [address] Performed By: #### 5 7021-8 #### [facility] CLIA [id number] [address] [place] [address] [place] RBC (Bld) [#/Vol] 5.61 10*6/uL High 3.90-5.20 [facility] Comment on above: Order Comment: Speci men Type: BLOOD SPECIMEN Ordering Facility: [facility] Address: [address] [place] [address] Performed By: #### 5 7021-8 #### [facility] CLIA [id number] [address] [place] [address] [place] WBC (Bld) [#/Vol] 11.30 10*3/uL High 3.70-11.00 [facility] Comment on above: Order Comment: Speci men Type: BLOOD SPECIMEN Ordering Facility: [facility] Address: [address] [place] [address] Performed By: #### 5 7021-8 #### [facility] CLIA [id number] [address] [place], [place] [address] [place] [address] [place] [address] ABD/PEL W IVCONon 11-13-[address] ABD/PEL W IVCON * * *Final Report* * * DATE OF EXAM: Apr 29 2023 3:51PM [facility] 0530 - CT ABD/PEL W IVCON / PROCEDURE REASON: Abdominal pain, acute, nonlocalized * * * * Physician Interpretation * * * * EXAMINATION: CT ABDOMEN AND PELVIS WITH IV CONTRAST CLINICAL HISTORY: Abdominal pain; pelvic pain; acute and chronic pain TECHNIQUE: CT of the abdomen and pelvis was performed using standard technique, scanning from just above the dome of the diaphragm to the symphysis pubis. MQ: CTAP_3 Contrast: IV: 100 ml of Omnipaque 350 : ml of CT Radiation dose: Integrated Dose-length product (DLP) for this visit = 960.12 mGy*cm. CT Dose Reduction Employed: Automated exposure control(AEC) and iterative recon COMPARISON: CT abdomen 08/25/2020 RESULT: Liver: No mass. Biliary: No bile duct dilation. Spleen: No mass. No splenomegaly. Pancreas: No mass or duct dilation. Adrenals: No mass. Kidneys: No mass, calculus or hydronephrosis. GI tract: Small hiatal hernia. Stomach is otherwise unremarkable. Small bowel is unremarkable with no evidence of obstruction. The colon and appendix are normal in appearance. Lymph nodes: No abdominal or pelvic lymphadenopathy. Mesentery/Peritoneum: No ascites or mass. Retroperitoneum: No mass. Vasculature: No aortic aneurysm. Major abdominal vasculature appears patent. Pelvis: Prior hysterectomy. Bones/Soft Tissues: Left hip prosthesis. No acute osseous abnormality is seen. Lower thorax: Unremarkable. Editor Sound (topogram) images: IMPRESSION: 1. No acute intra-abdominal abnormality is seen. Instrument Setter: PSCSangeetha Transcribe Date/Time: Apr 29 2023 4:01P Dictated by : NANDA MENA MD This examination was interpreted and the report reviewed and electronically signed by: NANDA MENA MD on Apr 29 2023 4:09PM EST [id number] Normal [facility] CT BRAIN WO IVCONon 04-29-20 CT BRAIN WO IVCON * * *Final Report* * * DATE OF EXAM: Apr 29 2023 3:29PM [facility] 0504 - CT BRAIN WO IVCON / PROCEDURE REASON: Head trauma, moderate-severe * * * * Physician Interpretation * * * * EXAMINATION: CT BRAIN WO IVCON CLINICAL HISTORY: Dizziness and frequent falls TECHNIQUE: Serial axial images without IV contrast were obtained from the vertex to the foramen magnum. MQ: CTBWO_3 CT Radiation dose: Integrated Dose-Length Product (DLP) for this visit = 617.94 mGy*cm CT Dose Reduction Employed: No dose reduction techniques were required COMPARISON: CT brain June 2021 RESULT: Editor Sound (topogram) images: Post-operative change: None. Acute change: No evidence of an acute infarct or other acute parenchymal process. Hemorrhage: No evidence of acute intracranial hemorrhage. ECASS hemorrhagic transformation score: Not Applicable Mass Lesion / Mass Effect: There is no evidence of an intracranial mass or extraaxial fluid collection. No significant mass effect. Chronic change: Scattered patchy foci of low attenuation are present within supratentorial white matter which is a nonspecific finding but likely represents mild microvascular ischemia. Remote lacunar infarct right-sided basal ganglia. Parenchyma: There is no significant volume loss. The brain parenchyma is otherwise within normal limits for age. Ventricles: The ventricles are within normal limits of size and configuration for age. Paranasal sinuses and skull base: The visualized paranasal sinuses are grossly clear. The skull base and imaged soft tissues are unremarkable. IMPRESSION: No acute intracranial abnormality is seen. Mild chronic changes as detailed above. No significant change compared to June 2021. Instrument Setter: [facility] Transcribe Date/Time: Apr 29 2023 3:35P Dictated by : NANDA MENA MD This examination was interpreted and the report reviewed and electronically signed by: NANDA MENA MD on Apr 29 2023 3:38PM EST [id number] Normal [facility] Calcium.ionized [Moles/Vol]o n 04-29-2023 Calcium.ionized (Bld) [Mass/Vol] >1.82 High 1.08-1.30 [facility] Comment on above: Order Comment: Speci men Type: BLOOD SPECIMEN Ordering Facility: [facility] Address: [address] [place] [address] Performed By: #### 3 040-3, 69277-3, 3016-3, 20729-4, 2777-1 #### [facility] CLIA [id number] [address] [place] [address] [place] Calcium.ionized adjusted to pH 7.4 (Bld) [Moles/Vol] >1.82 High 1.08-1.30 [facility] Comment on above: Order Comment: Speci men Type: BLOOD SPECIMEN Ordering Facility: [facility] Address: [address] [place] [address] Performed By: #### 3 040-3, 49472-9, 3016-3, 74993-2, 2777-1 #### [facility] CLIA [id number] [address] [place] [address] [facility] Comprehensive metabolic 2000 panelon 04-29-2023 Albumin [Mass/Vol] 4.2 g/dL Normal 3.9-4.9 [facility] Comment on above: Order Comment: Keena grewal Type: BLOOD SPECIMEN Ordering Facility: [facility] Address: [address] [place] [address] Performed By: #### 3 040-3, 21808-1, 3016-3, 09156-2, 2777-1 #### [facility] CLIA [id number] [address] [place], [place] [address] [place] [address] ALP [Catalytic activity/Vol] 102 U/L Normal 34-123 [facility] Comment on above: Order Comment: Keena grewal Type: BLOOD SPECIMEN Ordering Facility: [facility] Address: [address] [place] [address] Performed By: #### 3 040-3, 75139-6, 6-3, 19954-5, 2777-1 #### [facility] CLIA [id number] [address] [place] [address] [facility] ALT With P-5'-P [Catalytic activity/Vol] 23 U/L Normal 7-38 [facility] Comment on above: Order Comment: Min men Type: BLOOD SPECIMEN Ordering Facility: [facility] Address: [address] [place] [address] Performed By: #### 3 040-3, 40207-9, 3016-3, 30386-3, 2777-1 #### [facility] CLIA [id number] [address] [place] [address] [place] Anion gap [Moles/Vol] 13 mmol/L Normal 9-18 [facility] Comment on above: Order Comment: Specpatrice grewal Type: BLOOD SPECIMEN Ordering Facility: [facility] Address: [address] [place] [address] Performed By: #### 3 040-3, 63579-2, 3016-3, 43366-3, 2777-1 #### [facility] CLIA [id number] [address] [place] [address] [place] AST With P-5'-P [Catalytic activity/Vol] Normal [facility] Comment on above: Order Comment: Specpatrice grewal Type: BLOOD SPECIMEN Ordering Facility: [facility] Address: [address] [place] [address] Result Comment: Unab le to assay due to interference from hemolysis. Suggest reorder as clinically indicated. Performed By: #### 3 040-3, 21321-6, 3016-3, 41139-4, 7-1 #### [facility] CLIA [id number] [address] [place] [address] [place] Bilirubin [Mass/Vol] 0.8 mg/dL Normal 0.2-1.3 [facility] Comment on above: Order Comment: Keena grewal Type: BLOOD SPECIMEN Ordering Facility: [facility] Address: [address] [place] [address] Performed By: #### 3 040-3, 61505-4, 3016-3, 25088-2, 2777-1 #### [facility] CLIA [id number] [address] [place] [address] [place] Calcium [Mass/Vol] 16.7 mg/dL High 8.5-10.2 [facility] Comment on above: Order Comment: Keena grewal Type: BLOOD SPECIMEN Ordering Facility: [facility] Address: [address] [place] [address] Performed By: #### 3 040-3, 14609-4, 3016-3, 45681-4, 2777-1 #### [facility] CLIA [id number] [address] [place] [address] [place] Chloride [Moles/Vol] 94 mmol/L Low 97-105 [facility] Comment on above: Order Comment: Speci men Type: BLOOD SPECIMEN Ordering Facility: [facility] Address: [address] [place] [address] Performed By: #### 3 040-3, 62337-3, 3016-3, 30018-6, 2777-1 #### [facility] CLIA [id number] [address] [place] [address] [place] CO2 [Moles/Vol] 28 mmol/L Normal 22-30 [facility] Comment on above: Order Comment: Speci men Type: BLOOD SPECIMEN Ordering Facility: [facility] Address: [address] [place] [address] Performed By: #### 3 040-3, 94526-1, 6-3, 54591-7, 277-1 #### [facility] CLIA [id number] [address] [place] [address] [place] Creatinine [Mass/Vol] 1.17 mg/dL High 0.58-0.96 [facility] Comment on above: Order Comment: Speci men Type: BLOOD SPECIMEN Ordering Facility: [facility] Address: [address] [place] [address] Performed By: #### 3 040-3, 08269-3, 3016-3, 45054-4, 2777-1 #### [facility] CLIA [id number] [address] [place] [address] [place] Creatinine and Glomerular filtration rate.predicted panel (S/P/Bld) 50 mL/min/1.73m??? Low >=60 [facility] Comment on above: Order Comment: Speci men Type: BLOOD SPECIMEN Ordering Facility: [facility] Address: [address] [place] [address] Result Comment: Brynn mated Glomerular Filtration Rate (eGFR) is calculated using the 2020 CKD-EPI creatinine equation. This equation utilizes serum creatinine, sex, and age as parameters. The creatinine assay has traceable calibration to isotope dilution-mass spectrometry. Refer to KDIGO guidelines for clinical interpretation. In patients with unstable renal function, e.g. those with acute kidney injury, the eGFR may not accurately reflect actual GFR. Performed By: #### 3 040-3, 88709-1, 3016-3, 44537-4, 2777-1 #### [facility] CLIA [id number] [address] [place] [address] [place] Glucose [Mass/Vol] 203 mg/dL High 74-99 [facility] Comment on above: Order Comment: Keena grewal Type: BLOOD SPECIMEN Ordering Facility: [facility] Address: [address] [place] [address] Result Comment: The [place] [employer] (ADA) provides guidance for cutoff values for fasting glucose and random glucose. The ADA defines fasting as no caloric intake for at least 8 hours. Fasting plasma glucose results between 100 to 125 mg/dL indicate increased risk for diabetes (prediabetes). Fasting plasma glucose results greater than or equal to 126 mg/dL meet the criteria for diagnosis of diabetes. In the absence of unequivocal hyperglycemia, results should be confirmed by repeat testing. In a patient with classic symptoms of hyperglycemia or hyperglycemic crisis, random plasma glucose results greater than or equal to 200 mg/dL meet the criteria for diagnosis of diabetes. Reference: Standards of Medical Care in Diabetes 2016, [place] [employer]. Diabetes Care. 2016.39(Suppl 1). Performed By: #### 3 040-3, 41091-6, 6-3, 09237-7, 2776-1 #### [facility] CLIA [id number] [address] [place] [address] [place] Potassium [Moles/Vol] 3.8 mmol/L Normal 3.7-5.1 [facility] Comment on above: Order Comment: Keena grewal Type: BLOOD SPECIMEN Ordering Facility: [facility] Address: [place] [id number] Performed By: #### 3 040-3, 70745-1, 6-3, 46427-0, 7-1 #### [facility] CLIA [id number] [address] [place] [address] [place] Protein [Mass/Vol] 7.3 g/dL Normal 6.3-8.0 [facility] Comment on above: Order Comment: Specpatrice grewal Type: BLOOD SPECIMEN Ordering Facility: [facility] Address: [address] [place] [address] Performed By: #### 3 040-3, 60173-8, 3016-3, 03300-3, 2777-1 #### [facility] CLIA [id number] [address] [place] [address] [place] Sodium [Moles/Vol] 135 mmol/L Low 136-144 [facility] Comment on above: Order Comment: Speci uri Type: BLOOD SPECIMEN Ordering Facility: [facility] Address: [address] [place] [address] Performed By: #### 3 040-3, 80746-5, 3016-3, 32980-7, 2777-1 #### [facility] CLIA [id number] [address] [place] [address] [place] Urea nitrogen [Mass/Vol] 10 mg/dL Normal 7-21 [facility] Comment on above: Order Comment: Mini uri Type: BLOOD SPECIMEN Ordering Facility: [facility] Address: [address] [place] [address] Performed By: #### 3 040-3, 82099-4, 3016-3, 09784-7, 2777-1 #### [facility] CLIA [id number] [address] [place] [address] [place] ECG COMPLETEon 04-29-2023 ECG COMPLETE Ventricular Rate : 1 07 BPM Atrial Rate : 107 BPM P-R Interval : 150 ms QRS Duration : 102 ms Q-T Interval : 370 ms QTC Calculation(Bazett) : 493 ms Calculated P [place] : 49 degrees Calculated R [place] : -41 degrees Calculated T [place] : 60 degrees SINUS TACHYCARDIA LEFT AXIS DEVIATION NONSPECIFIC ST AND T WAVE ABNORMALITY ABNORMAL ECG WHEN COMPARED WITH ECG OF 10-DEC-2021 11:38, PREMATURE ATRIAL COMPLEXES ARE NO LONGER PRESENT Confirmed by CARAMD Matos VINAYAK ([id number]) on 04/30/2023 11:17:51 PM NAME : SERA DEWITT PID : [id number] : 1950 Gender : Female Race : ORD : [id number] Procedure Date : Apr 29 2023 15:52:15 Edit Date : Apr 30 2023 23:17:56 Diagnosis: SINUS TACHYCARDIA LEFT AXIS DEVIATION NONSPECIFIC ST AND T WAVE ABNORMALITY ABNORMAL ECG WHEN COMPARED WITH ECG OF 10-DEC-2021 11:38, PREMATURE ATRIAL COMPLEXES ARE NO LONGER PRESENT Confirmed by MD MARROQUIN VINAYAK ([id number]) on 04/30/2023 11:17:51 PM Test Reason : Chest Pain Location : 150 : [facility] Overread By : MD MARROQUIN VINAYAK Edited By : MD MARROQUIN VINAYAK Referred By : , Acquired by : JANNETH PÉREZ [facility] ED NOTEon 04-29-2023 ED NOTE HNO ID: [id number] Author: Rachael Hamilton RN Service: Nursing Author Type: Registered Nurse Type: ED Notes Filed: 04/29/2023 5:04 PM Note Text: Meal tray ordered for patient. [facility] ED PROV NOTEon 04-29-2023 ED PROV NOTE HNO ID: [id number] Author: David Harden MD Service: Emergency Medicine Author Type: Physician Type: ED Provider Notes Filed: 04/29/2023 8:10 PM Note Text: ED Provider Note Patient Name: Sera Dewitt : 1950 SERVICE DATE: 04/29/23 History Patient presents with: Dizziness 72-year-old female patient presents to the emergency department. Patient states she fell twice today. She states she thinks the first time she had dizziness and may have blacked out. She states that she has had bilateral leg weakness for many years. She states she has had a sour stomach this week. She is also had some headaches. She denies chest pain or shortness of breath. She denies any vomiting or diarrhea. States has been eating and drinking. Denies any dysuria. PAST MEDICAL HISTORY Diagnosis Date - Anemia - Burning mouth syndrome - Depression - Fibromyalgia - GERD (gastroesophageal reflux disease) - Hyperhidrosis - Hypertension - Insomnia - Sleep apnea CPAP - Vitamin D deficiency PAST SURGICAL HISTORY Procedure Laterality Date - ARTHRP KNE CONDYLEANDPLATU MEDIALANDLAT COMPARTMENTS Bilateral 04/2012 - COLONOSCOPY 07/05/2022 - COLONOSCOPY 07/05/2022 - EGD 07/05/2022 - EGD 07/05/2022 repeat in 3 months - FOOT SURGERY HX Left - HYSTERECTOMY HX - ORTHOPEDICS SURGERY HX left thr - ORTHOPEDICS SURGERY HX bilateral tkr - TONSILLECTOMY AND ADENOIDECTOMY HX Childhood - TONSILLECTOMY HX - VAGINAL HYSTERECTOMY UTERUS 250 GM/< 1982 Hysterectomy, vaginal FAMILY HISTORY Problem Relation Age of Onset - Colon Cancer Mother - Diabetes Mother - Stroke Mother - Alzheimer's Disease Mother - Emphysema Father - Diabetes Brother - Seizures Brother Social History Tobacco Use - Smoking status: Former Packs/day: .5 Types: Cigarettes Start date: 02/21/1964 - Smokeless tobacco: Never - Tobacco comments: Reports quit smoking in Janrt Vaping Use - Vaping Use: Never used Substance and Sexual Activity - Alcohol use: No - Drug use: No - Sexual activity: Not on file ALLERGIES Allergen Reactions - Kiwi Diarrhea, Vomiting - Zosyn [Piperacillin* Shortness of Breath Review of Systems Neurological: Positive for dizziness, weakness, light-headedness and headaches. All other systems reviewed and are negative. Physical Exam Vitals [04/29/23 1409] BP Pulse Temp Temp src Resp SpO2 Weight Height 140/94 (!) 122 36.2 ?C (97.2 ?F) Temporal 18 95 % 84.3 kg (185 lb 14.4 oz) -- Physical Exam Vitals and nursing note reviewed. Constitutional: Appearance: She is well-developed. HENT: Head: Normocephalic and atraumatic. Nose: Nose normal. Eyes: Extraocular Movements: Extraocular movements intact. Cardiovascular: Rate and Rhythm: Tachycardia present. Heart sounds: Normal heart sounds. Pulmonary: Effort: No respiratory distress. Breath sounds: Normal breath sounds. Abdominal: General: Bowel sounds are normal. Palpations: Abdomen is soft. Tenderness: There is no abdominal tenderness. Musculoskeletal: General: Normal range of motion. Cervical back: Neck supple. Skin: General: Skin is warm and dry. Neurological: Mental Status: She is alert and oriented to person, place, and time. Diagnostic Testing ED Labs Ordered and Reviewed - No data to display Procedures ED Course / Clinical Impression Clinical Impressions as of 04/29/23 1624 Syncope, unspecified syncope type Hypercalcemia MDM / Disposition / Plan Patient presents with dizziness and weakness. She states she has had a sour stomach. She does states she has been using Tums the last couple of days for this. Twelve-lead EKG showed sinus tachycardia. There was no ischemic changes. Troponins are elevated but not rising and similar to past troponins. Her calcium was elevated on BMP which led me to obtain a ionized calcium which is also elevated. She has been treated with IV fluids for the elevated calcium. Urinalysis negative for infection. Creatinine is around her baseline. Lipase is negative. Mag is normal. Phosphorus is normal as is TSH. CT abdomen and pelvis showed no acute abnormality. Pelvis x-ray showed no osseous injury. Chest x-ray negative. Patient is being treated with IV fluids for her hypercalcemia. She does states she has been taking Tums. I have ordered a PTH. No known malignancy. Patient will be admitted to [facility] for probable syncope and hypercalcemia. Differential Diagnoses - ACS is less likely for the following reason(s): HANDP not suggestive - Intracranial hemorrhage is less likely for the following reason(s): no evidence on imaging - Fracture is less likely for the following reason(s): no evidence on imaging Management Management of the patient was discussed with:see ED course Radiology Reports CT ABD/PEL W IVCON Final Result IMPRESSION: 1. No acute intra-abdominal abnormality is seen. Transcriptioni (more content not included)... Normal [facility] HIGH SENSITIVITY TROPONIN T (INITIAL)on 04-29-2023 Troponin T.cardiac High sensitivity method [Mass/Vol] 17 ng/L High <12 [facility] Comment on above: Order Comment: Speci men Type: BLOOD SPECIMEN Ordering Facility: [facility] Address: [address] [place] [address] Result Comment: When assessing risk for acute coronary syndromes: In patients undergoing blood draw greater than or equal to 2 hours from symptom onset, with history of very low to moderate risk and non-ischemic ECG, an initial hs-Troponin T less than 12 ng/L AND a 1 hour delta hs-Troponin T less than 3 ng/L should be considered very low risk for 30 day MACE. Performed By: #### L [id number] #### [facility] CLIA [id number] [address] [place] [address] [facility] HIGH SENSITIVITY TROPONIN T (SECOND)on 04-29-2023 Troponin T.cardiac High sensitivity method [Mass/Vol] 16 ng/L High <12 [facility] Comment on above: Order Comment: Keena grewal Type: BLOOD SPECIMEN Ordering Facility: [facility] Address: [address] [place] [address] Result Comment: When assessing risk for acute coronary syndromes: In patients undergoing blood draw greater than or equal to 2 hours from symptom onset, with history of very low to moderate risk and non-ischemic ECG, an initial hs-Troponin T less than 12 ng/L AND a 1 hour delta hs-Troponin T less than 3 ng/L should be considered very low risk for 30 day MACE. Performed By: #### L [id number] #### [facility] CLIA [id number] [address] [place] [id number] [facility] HIGH SENSITIVITY TROPONIN T (THIRD) 3 HRS AFTER INITIALon 04-29-2023 Troponin T.cardiac High sensitivity method [Mass/Vol] 16 ng/L High <12 [facility] Comment on above: Order Comment: Keena grewal Type: BLOOD SPECIMEN Ordering Facility: [facility] Address: [address] [place] [address] Result Comment: When assessing risk for acute coronary syndromes: In patients undergoing blood draw greater than or equal to 2 hours from symptom onset, with history of very low to moderate risk and non-ischemic ECG, an initial hs-Troponin T less than 12 ng/L AND a 1 hour delta hs-Troponin T less than 3 ng/L should be considered very low risk for 30 day MACE. Performed By: #### 3 040-3, 55165-2, 3016-3, 24902-4, 2777-1 #### [facility] CLIA [id number] [address] [place] [id number] [place] Lipase SerPl-cCncon 04-29-20 23 Lipase [Catalytic activity/Vol] 25 U/L Normal 16-61 [facility] Comment on above: Order Comment: Keena grewal Type: BLOOD SPECIMEN Ordering Facility: [facility] Address: [address] [place], [place] [address] Performed By: #### 3 040-3, 61628-8, 3016-3, 85365-6, 2776-1 #### [facility] CLIA [id number] [address] [place] [address] [place] Magnesium SerPl-mCncon 04-29 Magnesium [Mass/Vol] 1.7 mg/dL Normal 1.7-2.3 [facility] Comment on above: Order Comment: Speci men Type: BLOOD SPECIMEN Ordering Facility: [facility] Address: [address] [place] [address] Performed By: #### 3 040-3, 15839-5, 3015-3, 08508-9, 2776-06 #### [facility] CLIA [id number] [address] [place] [address] [place] PTH-Intact SerPl-mCncon 04-17 Parathyrin.intact [Mass/Vol] pg/mL Low 15-65 [facility] Comment on above: Order Comment: Speci men Type: BLOOD SPECIMEN Ordering Facility: [facility] Address: [address] [place] [address] Result Comment: Test methodology for this assay has moved from Siemens Centaur XP to Gertrude dashawn 8000 effective March 20, 2022. Please note there may be a change in the reporting units and/or reference range. Performed By: #### 2 731-8 #### [facility] CLIA [id number] [address] [place] [address] [place] Phosphate SerPl-mCncon 04-29 Phosphate [Mass/Vol] 3.7 mg/dL Normal 2.7-4.8 [facility] Comment on above: Order Comment: Speci men Type: BLOOD SPECIMEN Ordering Facility: [facility] Address: [address] [place] [address] Performed By: #### 3 040-3, 72319-3, 3016-3, 27722-8, 277-1 #### [facility] CLIA [id number] [address] [place], [place] [address] [place] [address] [place] TSH SerPl-aCncon 04-29-2023 TSH Qn 2.650 m[IU]/L Normal 0.270-4.200 [facility] Comment on above: Order Comment: Speci men Type: BLOOD SPECIMEN Ordering Facility: [facility] Address: [address] [place] [address] Performed By: #### 3 040-3, 63662-0, 3016-3, 73571-1, 2777-1 #### [facility] CLIA [id number] [address] [place] Urinalysis complete panel (U )on 04-29-2023 Bilirubin Ql (U) Negative Normal Negative [facility] Comment on above: Order Comment: Speci men Type: URINE SPECIMEN Ordering Facility: [facility] Address: [address] [place] [address] Performed By: #### 2 4356-8 #### [facility] CLIA [id number] [address] [place] [address] [place] Clarity (Unsp spec) Clear Normal Clear [facility] Comment on above: Order Comment: Speci men Type: URINE SPECIMEN Ordering Facility: [facility] Address: [address] [place] [address] Performed By: #### 2 4356-8 #### [facility] CLIA [id number] [address] [place] [address] [place] Color (U) Yellow Normal Yellow [facility] Comment on above: Order Comment: Speci men Type: URINE SPECIMEN Ordering Facility: [facility] Address: [address] [place] [address] Performed By: #### 2 4356-8 #### [facility] CLIA [id number] [address] [place] [address] [place] Epithelial cells LM.HPF (Urine sed) [#/Area] Few Normal [facility] Comment on above: Order Comment: Speci men Type: URINE SPECIMEN Ordering Facility: [facility] Address: [address] [place], [place] [address] Result Comment: Few Performed By: #### 2 4356-8 #### [facility] CLIA [id number] [address] [place] [address] [facility] [place] Glucose Test strip (U) [Mass/Vol] Negative Normal Negative [facility] Comment on above: Order Comment: Speci men Type: URINE SPECIMEN Ordering Facility: [facility] Address: [address] [place] [address] Performed By: #### 2 4356-8 #### [facility] CLIA [id number] [address] [place] [address] [place] Hemoglobin Ql (U) Negative Normal Negative [facility] Comment on above: Order Comment: Speci men Type: URINE SPECIMEN Ordering Facility: [facility] Address: [address] [place] [address] Performed By: #### 2 4356-8 #### [facility] CLIA [id number] [address] [place] [address] [place] Ketones Ql (U) Negative Normal Negative [facility] Comment on above: Order Comment: Speci men Type: URINE SPECIMEN Ordering Facility: [facility] Address: [address] [place] [address] Performed By: #### 2 4356-8 #### [facility] CLIA [id number] [address] [place] [address] [facility] [place] Leukocyte esterase Test strip Ql (U) 1+ Abnormal Negative [facility] Comment on above: Order Comment: Speci men Type: URINE SPECIMEN Ordering Facility: [facility] Address: [address] [place] [address] Performed By: #### 2 4356-8 #### [facility] CLIA [id number] [address] [place] [address] [place] Nitrite Ql (U) Negative Normal Negative [facility] Comment on above: Order Comment: Speci men Type: URINE SPECIMEN Ordering Facility: [facility] Address: [address] [place] [address] Performed By: #### 2 4356-8 #### [facility] CLIA [id number] [address] [place] [address] [place] pH (U) 7.0 [pH] Normal 5.0-8.0 [facility] Comment on above: Order Comment: Speci men Type: URINE SPECIMEN Ordering Facility: [facility] Address: [address] [place] [address] Performed By: #### 2 4356-8 #### [facility] CLIA [id number] [address] [place] [address] [place] Protein (U) [Mass/Vol] Negative Normal Negative [facility] Comment on above: Order Comment: Speci men Type: URINE SPECIMEN Ordering Facility: [facility] Address: [address] [place] [address] Performed By: #### 2 4356-8 #### [facility] CLIA [id number] [address] [place] [address] [place] RBC LM.HPF (Urine sed) [#/Area] 0-3 /HPF Normal 0-3 /HPF [facility] Comment on above: Order Comment: Speci men Type: URINE SPECIMEN Ordering Facility: [facility] Address: [address] [place] [address] Performed By: #### 2 4356-8 #### [facility] CLIA [id number] [address] [place] [address] [facility] [place] Specific gravity (U) [Rel density] 1.015 Normal 1.005-1.030 [facility] Comment on above: Order Comment: Speci men Type: URINE SPECIMEN Ordering Facility: [facility] Address: [address] [place] [address] Performed By: #### 2 4356-8 #### [facility] CLIA [id number] [address] [place] [address] [facility] [place] Urobilinogen Ql (U) 0.2 EU/dL Normal 0.2-1.0 EU/dL [facility] Comment on above: Order Comment: Speci men Type: URINE SPECIMEN Ordering Facility: [facility] Address: [address] [place] [id number] Performed By: #### 2 4356-8 #### [facility] CLIA [id number] [address] [place] [address] [facility] WBC LM.HPF (Urine sed) [#/Area] 0-5 /HPF Normal 0-5 /HPF [facility] Comment on above: Order Comment: Speci men Type: URINE SPECIMEN Ordering Facility: [facility] Address: [address] [place] [id number] Performed By: #### 2 4356-8 #### [facility] CLIA [id number] [address] [place] [address] [facility] [place] XR CHEST 2V FRONTAL/LATon XR CHEST 2V FRONTAL/LAT * * *Final Report* * * DATE OF EXAM: Apr 29 2023 3:25PM LDX 5291 - XR CHEST 2V FRONTAL/LAT / PROCEDURE REASON: Shortness of breath * * * * Physician Interpretation * * * * EXAMINATION: CHEST RADIOGRAPH (2 VIEW FRONTAL and LATERAL) CLINICAL HISTORY: Shortness of breath MQ: XC2_6 EXAM DATE/TIME: 04/29/2023 3:25 PM COMPARISON: Chest x-ray November 2021 RESULT: Lines, tubes, and devices: None. Lungs and pleura: No consolidation. No lung mass. No pleural effusion. No pneumothorax. Cardiomediastinal silhouette: Normal cardiomediastinal silhouette. Bones and soft tissues: There are remote healed bilateral rib fractures. Remote deformity left proximal humerus. No acute osseous injury is seen. IMPRESSION: No acute radiographic abnormality. Instrument Setter: PSCB Transcribe Date/Time: Apr 29 2023 3:34P Dictated by : NANDA MENA MD This examination was interpreted and the report reviewed and electronically signed by: NANDA MENA MD on Apr 29 2023 3:35PM EST [id number] Normal [facility] XR PELVIS 1V APon 04-29-2023 XR PELVIS 1V AP * * *Final Report* * * DATE OF EXAM: Apr 29 2023 3:25PM LDX 5239 - XR PELVIS 1V AP / PROCEDURE REASON: Pelvic fracture * * * * Physician Interpretation * * * * EXAMINATION: XR PELVIS 1V AP HISTORY: Fall, pt. states she has been passing out lately, feels off balance, weakness in her legs. Pelvic fracture. TECHNIQUE: XR PELVIS 1V AP Laterality: NOT APPLICABLE Number of different views (projections): 1 M: XB_1 COMPARISON: RESULT: No evidence of pelvic fracture. Left hip total joint arthroplasty. Suspected mild narrowing of the right acetabular joint. Lower lumbar degenerative disc disease. No other significant abnormality. IMPRESSION: No acute osseous injury is seen. Instrument Setter: PSCB Transcribe Date/Time: Apr 29 2023 3:33P Dictated by : NANDA MENA MD This examination was interpreted and the report reviewed and electronically signed by: NANDA MENA MD on Apr 29 2023 3:34PM EST [id number] Normal [facility] GLUCOSE, BLOOD (POC)on 10-04 Glucose [Mass/Vol] 98 mg/dL 74 - 99 mg/dL [facility] No Panel Informationon 10-02 IMPRESSION: Osteoart hrosis Instrument Setter: PSCB Transcribe Date/Time: Oct 02 2022 6:02P Dictated by : PRIYANKA GORMAN MD This examination was interpreted and the report reviewed and electronically signed by: PRIYANKA GORMAN MD on Oct 02 2022 6:04PM EST [facility] No Panel InformationOrdered By: [facility] Provider on 10-02-2022 [facility] XR Hand - bilateral PA and L ateral and Obliqueon 10-02-2022 * * *Final Report* * * DATE OF EXAM: Oct 01 2022 11:35AM ANA MARIA 5556 - XR HAND 3V PA/LAT/OBL RAMOS / PROCEDURE REASON: [id number] * * * * Physician Interpretation * * * * PROCEDURE: Bilateral hands and wrists INDICATION: Pain .bilateral wrist sweeling, bilateral hand pain, knuckles turn blue TECHNIQUE: XR HAND 3V PA/LAT/OBL RAMOS, XR WRIST 3V PA/LAT/OBL RAMOS COMPARISON: None FINDINGS: Bilateral osteopenia. No fracture or dislocation. Mild bilateral 1st CMC joint osteoarthrosis. More significant osteoarthritic change in all DIP joints bilaterally, severe in the right 2nd DIP joint. No erosion or focal soft tissue swelling. Calcification in the region of the triangular fibrocartilage bilaterally. [facility] Provider, [facility] - 10/02/2022 * * *Final Report* * * DATE OF EXAM: Oct 01 2022 11:35AM ANA MARIA 5556 - XR HAND 3V PA/LAT/OBL RAMOS / PROCEDURE REASON: [id number] * * * * Physician Interpretation * * * * PROCEDURE: Bilateral hands and wrists INDICATION: Pain .bilateral wrist sweeling, bilateral hand pain, knuckles turn blue TECHNIQUE: XR HAND 3V PA/LAT/OBL RAMOS, XR WRIST 3V PA/LAT/OBL RAMOS COMPARISON: None FINDINGS: Bilateral osteopenia. No fracture or dislocation. Mild bilateral 1st CMC joint osteoarthrosis. More significant osteoarthritic change in all DIP joints bilaterally, severe in the right 2nd DIP joint. No erosion or focal soft tissue swelling. Calcification in the region of the triangular fibrocartilage bilaterally. IMPRESSION IMPRESSION: Osteoarthrosis Instrument Setter: MELANIE Transcribe Date/Time: Oct 02 2022 6:02P Dictated by : PRIYANKA GORMAN MD This examination was interpreted and the report reviewed and electronically signed by: PRIYANKA GORMAN MD on Oct 02 2022 6:04PM [facility] XR Wrist - bilateral PA and Lateral and Obliqueon 10-02-2022 * * *Final Report* * * DATE OF EXAM: Oct 01 2022 11:35AM O 5621 - XR WRIST 3V PA/LAT/OBL RAMOS / PROCEDURE REASON: [id number] * * * * Physician Interpretation * * * * PROCEDURE: Bilateral hands and wrists INDICATION: Pain .bilateral wrist sweeling, bilateral hand pain, knuckles turn blue TECHNIQUE: XR HAND 3V PA/LAT/OBL RAMOS, XR WRIST 3V PA/LAT/OBL RAMOS COMPARISON: None FINDINGS: Bilateral osteopenia. No fracture or dislocation. Mild bilateral 1st CMC joint osteoarthrosis. More significant osteoarthritic change in all DIP joints bilaterally, severe in the right 2nd DIP joint. No erosion or focal soft tissue swelling. Calcification in the region of the triangular fibrocartilage bilaterally. [facility] Provider, [facility] - 10/02/2022 * * *Final Report* * * DATE OF EXAM: Oct 01 2022 11:35AM ANA MARIA 5621 - XR WRIST 3V PA/LAT/OBL RAMOS / PROCEDURE REASON: [id number] * * * * Physician Interpretation * * * * PROCEDURE: Bilateral hands and wrists INDICATION: Pain .bilateral wrist sweeling, bilateral hand pain, knuckles turn blue TECHNIQUE: XR HAND 3V PA/LAT/OBL RAMOS, XR WRIST 3V PA/LAT/OBL RAMOS COMPARISON: None FINDINGS: Bilateral osteopenia. No fracture or dislocation. Mild bilateral 1st CMC joint osteoarthrosis. More significant osteoarthritic change in all DIP joints bilaterally, severe in the right 2nd DIP joint. No erosion or focal soft tissue swelling. Calcification in the region of the triangular fibrocartilage bilaterally. IMPRESSION IMPRESSION: Osteoarthrosis Instrument Setter: MELANIE Transcribe Date/Time: Oct 02 2022 6:02P Dictated by : PRIYANKA GORMAN MD This examination was interpreted and the report reviewed and electronically signed by: PRIYANKA GORMAN MD on Oct 02 2022 6:04PM EST [facility] No Panel Informationon 10-01 Radiology Study observation (narrative) [facility] XR HAND 3V PA/LAT/OBL BILon 10-01-2022 XR HAND 3V PA/LAT/OBL RAMOS * * *Final Report* * * DATE OF EXAM: Oct 01 2022 11:35AM ANA MARIA 5556 - XR HAND 3V PA/LAT/OBL RAMOS / PROCEDURE REASON: [id number] * * * * Physician Interpretation * * * * PROCEDURE: Bilateral hands and wrists INDICATION: Pain .bilateral wrist sweeling, bilateral hand pain, knuckles turn blue TECHNIQUE: XR HAND 3V PA/LAT/OBL RAMOS, XR WRIST 3V PA/LAT/OBL RAMOS COMPARISON: None FINDINGS: Bilateral osteopenia. No fracture or dislocation. Mild bilateral 1st CMC joint osteoarthrosis. More significant osteoarthritic change in all DIP joints bilaterally, severe in the right 2nd DIP joint. No erosion or focal soft tissue swelling. Calcification in the region of the triangular fibrocartilage bilaterally. IMPRESSION: Osteoarthrosis Instrument Setter: [facility] Transcribe Date/Time: Oct 02 2022 6:02P Dictated by : PRIYANKA GORMAN MD This examination was interpreted and the report reviewed and electronically signed by: PRIYANKA GORMAN MD on Oct 02 2022 6:04PM EST [id number] [facility] XR WRIST 3V PA/LAT/OBL BILon 10-01-2022 XR WRIST 3V PA/LAT/OBL RAMOS * * *Final Report* * * DATE OF EXAM: Oct 01 2022 11:35AM ANA MARIA 5621 - XR WRIST 3V PA/LAT/OBL RAMOS / PROCEDURE REASON: [id number] * * * * Physician Interpretation * * * * PROCEDURE: Bilateral hands and wrists INDICATION: Pain .bilateral wrist sweeling, bilateral hand pain, knuckles turn blue TECHNIQUE: XR HAND 3V PA/LAT/OBL RAMOS, XR WRIST 3V PA/LAT/OBL RAMOS COMPARISON: None FINDINGS: Bilateral osteopenia. No fracture or dislocation. Mild bilateral 1st CMC joint osteoarthrosis. More significant osteoarthritic change in all DIP joints bilaterally, severe in the right 2nd DIP joint. No erosion or focal soft tissue swelling. Calcification in the region of the triangular fibrocartilage bilaterally. IMPRESSION: Osteoarthrosis Instrument Setter: MELANIE Transcribe Date/Time: Oct 02 2022 6:02P Dictated by : PRIYANKA GORMAN MD This examination was interpreted and the report reviewed and electronically signed by: PRIYANKA GORMAN MD on Oct 02 2022 6:04PM EST [id number] [facility] CT ABD/PEL W IVCONon 021 CT ABD/PEL W IVCON Final Report DATE OF EXAM: Aug 25 2020 4:02PM [facility] 0530 - CT ABD/PEL W IVCON / PROCEDURE REASON: Infection, abdomen-pelvis Physician Interpretation EXAMINATION: CT ABDOMEN AND PELVIS WITH IV CONTRAST CLINICAL HISTORY: Infection abdomen and pelvis TECHNIQUE: CT of the abdomen and pelvis was performed using standard technique, scanning from just above the dome of the diaphragm to the symphysis pubis. MQ: CTAP_3 Contrast: IV: 150 ml of Omnipaque 300 Oral: None CT Radiation dose: Integrated Dose-length product (DLP) for this visit = 982.[address] Dose Reduction Employed: Automated exposure control (AEC) COMPARISON: CT abdomen and pelvis September 20, 2015 RESULT: Liver: No mass. Biliary: No bile duct dilation. Gallbladder is mildly distended. Spleen: No mass. No splenomegaly. Pancreas: No mass or duct dilation. Adrenals: No mass. Kidneys: No mass, calculus or hydronephrosis. GI tract: Small hiatal hernia. Mild thickening of the wall gastric antrum. No dilated loops of large or small bowel. Severe thickening of the wall of the distal transverse, descending and sigmoid colon. Normal appearance of the appendix. Lymph nodes: No abdominal or pelvic lymphadenopathy. Mesentery/Peritoneum: No mass or abdominal ascites. Retroperitoneum: No mass. Vasculature: The celiac trunk and its branches appear widely patent. The superior mesenteric artery widely patent. Inferior mesenteric artery is patent. The splenic, superior mesenteric and portal veins are patent. The hepatic veins are patent. Pelvis: No pelvic mass. Uterus is surgically absent. Bladder is unremarkable small amount of free fluid in the cul-de-sac. Bones/Soft Tissues: Left hip replacement. Severe degenerative changes in the lumbar spine. Right hip replacement. Lower thorax: 3 mm calcified granuloma in the right lower lobe. Editor Sound (topogram) images: No additional findings. IMPRESSION: Thickening of the wall of the transverse, descending and sigmoid colon suspicious for colitis. Differential would include inflammatory, infectious or ischemic colitis. Small amount of free fluid in the pelvis. Thickening of the wall of the gastric antrum. This thickening may be due to underdistention or gastritis. Small hiatal hernia. Instrument Setter: MELANIE Transcribe Date/Time: Aug 25 2020 4:07P Dictated by : GALDINO ROSE MD This examination was interpreted and the report reviewed and electronically signed by: GALDINO ROSE MD on Aug 25 2020 4:19PM EST Normal [facility] XR CHEST 1V FRONTALon 2020 XR CHEST 1V FRONTAL Final Report DATE OF EXAM: Aug 25 2020 6:35PM LDX 5290 - XR CHEST 1V FRONTAL / PROCEDURE REASON: Chest pain or SOB, pleurisy or effusion suspected Physician Interpretation EXAMINATION: CHEST RADIOGRAPH (SINGLE VIEW AP OR PA) CLINICAL HISTORY: Chest pain MQ: XC1_5 Comparison: Chest radiograph 03/10/2019 RESULT: Lines, tubes, and devices: None. Lungs and pleura: No consolidation. No pneumothorax. No pleural effusion. Cardiomediastinal silhouette: Normal cardiomediastinal silhouette. Other: . IMPRESSION: No acute radiographic abnormality. Instrument Setter: [facility] Transcribe Date/Time: Aug 25 2020 7:16P Dictated by : JORGE STUBBS MD This examination was interpreted and the report reviewed and electronically signed by: JORGE STUBBS MD on Aug 25 2020 7:16PM EST Normal [facility] Vital Signs Date Time Vital Sign Value Performing Clinician Pat lan 03-30-2024 16:30-0400 Body height 170.2 cm Stephanie Sandor SALES ESTIMATOR.AIRCRAFT ENGINE INSTALLER Work Phone: [facility] 03-30-2024 16:30-0400 Body mass index (BMI) [Ratio] 33.49 kg/m2 Stephanie Sandor SALES ESTIMATOR.AIRCRAFT ENGINE INSTALLER Work Phone: [facility] 03-30-2024 16:30-0400 Body temperature 96.8 [degF] Stephanie Sandor SALES ESTIMATOR.AIRCRAFT ENGINE INSTALLER Work Phone: [facility] 03-30-2024 16:30-0400 Body weight 96.98 kg Stephanie Sandor SALES ESTIMATOR.AIRCRAFT ENGINE INSTALLER Work Phone: [facility] 03-30-2024 16:30-0400 Diastolic blood pressure 98 mm[Hg] Stephanie Sandor SALES ESTIMATOR.AIRCRAFT ENGINE INSTALLER Work Phone: [facility] 03-30-2024 16:30-0400 Heart rate 63 /min Stephanie Sandor SALES ESTIMATOR.AIRCRAFT ENGINE INSTALLER Work Phone: [facility] 03-30-2024 16:30-0400 SaO2% (BldA) [Mass fraction] 97 % Stephanie Sandor SALES ESTIMATOR.AIRCRAFT ENGINE INSTALLER Work Phone: [facility] 03-30-2024 16:30-0400 Systolic blood pressure 150 mm[Hg] Stephanie Sandor SALES ESTIMATOR.AIRCRAFT ENGINE INSTALLER Work Phone: [facility] 10-04-2022 14:05-0400 Diastolic blood pressure 83 mm[Hg] Jennifer Ye MD Work Phone: [facility] 10-04-2022 14:05-0400 Heart rate 81 /min Jennifer Ye MD Work Phone: [facility] 10-04-2022 14:05-0400 Respiratory rate 15 /min Jennifer Ye MD Work Phone: [facility] 10-04-2022 14:05-0400 SaO2% (BldA) [Mass fraction] 98 % Jennifer Ye MD Work Phone: [facility] 10-04-2022 14:05-0400 Systolic blood pressure 113 mm[Hg] Jennifer Ye MD Work Phone: [facility] 10-04-2022 13:36-0400 Body temperature 96.49 [degF] Jennifer Ye MD Work Phone: [facility] 06-26-2022 09:14-0500 Body height 167.6 cm Jennifer Ye MD Work Phone: [facility] 06-26-2022 09:14-0500 Body temperature 97.59 [degF] Jennifer Ye MD Work Phone: [facility] 06-26-2022 09:14-0500 Body weight 82.01 kg Jennifer Ye MD Work Phone: [facility] 06-26-2022 09:14-0500 Diastolic blood pressure 82 mm[Hg] Jennifer Ye MD Work Phone: [facility] 06-26-2022 09:14-0500 Heart rate 93 /min Jennifer Ye MD Work Phone: [facility] 06-26-2022 09:14-0500 SaO2% (BldA) [Mass fraction] 97 % Jennifer Ye MD Work Phone: [facility] 06-26-2022 09:14-0500 Systolic blood pressure 120 mm[Hg] Jennifer Ye MD Work Phone: [facility] Encounters Encounter Date Encounter Type Care Provider Facility Start: 04-02-2024 End: 04-02-2024 ambulatory JENNIFER YE Facility[facility] Start: 03-30-2024 End: 03-30-2024 ambulatory STEPHANIE SANCHEZ Facility:[facility] Start: 03-30-2024 End: 03-30-2024 Patient encounter procedure Stephanie Sanchez SALES ESTIMATORLeonorAIRCRAFT ENGINE INSTALLER Work Phone: General Surgery Comment on above: Gastric ulcer withou t hemorrhage or perforation, unspecified chronicity (Primary Dx); Nausea; Gastroesophageal reflux disease, unspecified whether esophagitis present Start: 04-30-2023 End: 05-01-2023 Evaluation and management of inpatient JOHNATHAN KARIMI Facility:[facility] Start: 04-29-2023 End: 04-29-2023 [facility] Start: 10-04-2022 End: 10-04-2022 Subsequent hospital visit by physician Jennifer Ye MD Work Phone: LD SURGERY Comment on above: Gastric ulcer, unspe cified chronicity, unspecified whether gastric ulcer hemorrhage or perforation present [K25.9] Start: 10-01-2022 ambulatory [place] [facility] y:[facility] Start: 10-01-2022 End: 10-01-2022 Patient encounter procedure Dede Mcmahan PA-C Work Phone: Orthopaedics Comment on above: CMC arthritis (Prima ry Dx); Disturbance of skin sensation Start: 10-01-2022 End: 10-01-2022 Subsequent hospital visit by physician Radio Dsouza [place] Work Phone: Radiology Comment on above: Pain [R52] Start: 08-27-2022 Refill Jennifer abarca MD Work Phone: General Surgery Comment on above: Refill Request (prot sandra) Start: 07-16-2022 Telephone encounter Jennifer Hill MD Work Phone: General Surgery Comment on above: Results Start: 06-26-2022 Telephone encounter Jennifer Hill MD Work Phone: General Surgery Comment on above: 07/05/2022 colon/[facility]d [facility] Start: 06-26-2022 End: 06-26-2022 Patient encounter procedure Jennifer Ye MD Work Phone: General Surgery Comment on above: History of colon di yps; Gastroesophageal reflux disease, unspecified whether esophagitis present Start: 10-12-2021 End: 10-12-2021 ambulatory Jorje Choi BRAILLE TRANSLATOR Work Phone: [facility] Comment on above: Other closed displac ed fracture of proximal end of left humerus, sequela (Primary Dx); Left shoulder pain, unspecified chronicity; Decreased ROM of left shoulder; Shoulder weakness Start: 10-05-2021 End: 10-05-2021 ambulatory Jorje Choi BRAILLE TRANSLATOR Work Phone: [facility] Comment on above: Other closed displac ed fracture of proximal end of left humerus, sequela (Primary Dx); Left shoulder pain, unspecified chronicity; Decreased ROM of left shoulder; Shoulder weakness Start: 09-14-2021 End: 09-14-2021 ambulatory Evangelina Martinez PT Work Phone: [facility] Comment on above: Other closed displac ed fracture of proximal end of left humerus, sequela (Primary Dx); Left shoulder pain, unspecified chronicity; Decreased ROM of left shoulder; Shoulder weakness Procedures Date Procedure Procedure Detail Performing Clinician Start: 10-04-2022 Gluc bld gluc mntr d ev cleared fda spec home use Yennifer Lara APRN.PATIENT TRANSITION SPECIALIST Work Phone: Start: 10-01-2022 Radex hand minimum 3 views Dede Mcmahan PA-C Work Phone: Start: 10-20-2015 Mammography Evangelina choi PT Work Phone: Start: 06-03-2015 Colonoscopy Evangelina choi PT Work Phone: Plan of Treatment Date Care Activity Detail Author Start: 08-23-2026 Screening for malign ant neoplasm of colon Cologuard (FIT-DNA) [facility] Start: 2025 RSV Vaccine (1 - 1-d ose 75+ series) RSV Vaccine (1 - 1-dose 75+ series) [facility] Start: 03-13-2025 DIABETES SCREEN DIABETES SCREEN [facility] Start: 07-02-2024 DIABETES SCREEN DIABETES SCREEN [facility] Start: 04-02-2024 End: 04-02-2024 Patient encounter procedure 04/02/2024 1:45 PM EDT Appointment [facility] SUR[facility]ERY [address] [facility] [place] [address] Jennifer Ye MD [address] [place] [id number] [facility] Start: 03-16-2024 End: 03-16-2024 Patient encounter procedure 03/16/2024 4:00 PM EDT Office Visit General Surgery [address] [place], [place] [id number] Jennifer eY MD [address] [place] [address] acid reflux General Surgery Comment on above: acid reflux Start: 02-16-2024 Covid-19 Vaccine ( season) Covid-19 Vaccine () [facility] Start: 02-16-2024 Influenza vaccination Influenza Vacc ine (#1) [facility] Start: 08-25-2023 Screening for malign ant neoplasm of colon Colorectal Cancer Screening [facility] Start: 07-25-2023 BP CONTROLLED (<130/80) BP CONTROLLE D (<130/80) [facility] Start: 06-17-2023 Advance Directive Discussion Advance Directive Discussion [facility] Start: 06-17-2022 ADVANCE DIRECTIVE DISCUSSION ADVANCE DIRECTIVE DISCUSSION [facility] Start: 06-17-2022 Hemoglobin A1c measurement HbA1C [facility] Start: 02-15-2022 Influenza vaccination INFLUENZ A (Season Ended) [facility] Start: 06-17-2021 ADVANCE DIRECTIVE DISCUSSION ADVANCE DIRECTIVE DISCUSSION [facility] Start: 02-15-2021 Influenza vaccination INFLUENZA (#1) [facility] Start: 02-14-2021 COVID-19 VACCINE (3 - Booster for Pfizer series) COVID-19 VACCINE (3 - Booster for Pfizer series) [facility] Start: 11-09-2020 COVID-19 VACCINE (3 - Booster for Pfizer series) COVID-19 VACCINE (3 - Booster for Pfizer series) [facility] Start: 06-03-2020 Colonoscopy COLONOSCOPY [facility] Start: 06-03-2020 COLORECTAL CANCER SCREENING COLORECTAL CANCER SCREENING [facility] Start: 06-03-2020 Screening for malign ant neoplasm of colon [facility] Start: 06-25-2018 LIPID SCREEN LIPID SCREEN [facility] Start: 10-19-2016 Mammography MAMMOGRAM [facility] Start: 10-19-2016 Screening for malign ant neoplasm of breast Mammogram Screening [facility] Start: 12-03-2015 PNEUMOCOCCAL: 65+ (1 - PCV) PNEUMOCOCCAL: 65+ (1 - PCV) [facility] Start: 12-03-2015 PNEUMOVAX AGE 65 AND OVER WITH 5YR LOOKBACK (#1) PNEUMOVAX AGE 65 AND OVER WITH 5YR LOOKBACK (#1) [facility] Start: 06-25-2014 Hepatitis B surface antibody level LDL Cholesterol [facility] Start: 2000 SHINGRIX VACCINE (1 of 2) SHINGRIX VACCINE (1 of 2) [facility] Start: 12-03-1995 COLOGUARD (FIT-DNA) COLOGUARD (FIT-D NA) [facility] Start: 12-03-[address] COLONOGRAPHY [facility] Start: 12-03-1995 FECAL OCCULT BLOOD FECAL OCCULT BLOO D [facility] Start: 12-03-1995 Screening for malign ant neoplasm of colon [facility] Start: 12-03-1995 SIGMOIDOSCOPY SIGMOIDOSCOPY [facility] Start: 1969 Urine microalbumin profile [facility] Start: 1968 ANNUAL PCP TEAM GREY INSPECTOR JONATAN DISEASE VISIT ANNUAL PCP TEAM CHRONIC DISEASE VISIT [facility] Start: 1968 Anxiety Screening Anxiety Screening [facility] Start: 1968 BP CONTROLLED (<130/80) BP CONTROLLE D (<130/80) [facility] Start: 1960 Diabetic foot examination Diabetic Foot Exam [facility] Start: 1960 Glaucoma screening Dilated Retinal E xam [facility] Start: 1960 Hepatitis B screening Urine Albumin:Creatinine Ratio [facility] Start: 1956 Pneumococcal Vaccine : 65+ (1 of 2 - PCV) Pneumococcal Vaccine: 65+ (1 of 2 - PCV) [facility] End: 06-26-2023 COLONOSCOPY DIAGNOSTIC COLONOSCOPY DIAGNOSTIC Endoscopy Routine Abdominal pain, epigastric Personal history of colonic polyps Dysphagia, unspecified type 1 Occurrences starting 06/26/2022 until 06/26/2023 [facility] Work Phone: Comment on above: 1 Occurrences starti ng 06/26/2022 until 06/26/2023 End: 06-26-2023 EGD DIAGNOSTIC EGD DIAGNOSTIC Endoscopy Routine Personal history of colonic polyps Dysphagia, unspecified type 1 Occurrences starting 06/26/2022 until 06/26/2023 [facility] Work Phone: Comment on above: 1 Occurrences starti ng 06/26/2022 until 06/26/2023 End: 10-04-2022 EGD DIAGNOSTIC EGD DIAGNOSTIC Endoscopy Routine Gastric ulcer, unspecified chronicity, unspecified whether gastric ulcer hemorrhage or perforation present 1 Occurrences starting 10/04/2022 until 10/04/2022 [facility] Work Phone: Comment on above: 1 Occurrences starti ng 10/04/2022 until 10/04/2022 End: 03-30-2025 EGD DIAGNOSTIC EGD DIAGNOSTIC Endoscopy Routine Gastric ulcer without hemorrhage or perforation, unspecified chronicity 1 Occurrences starting 03/30/2024 until 03/30/2025 [facility] Work Phone: Comment on above: 1 Occurrences starti ng 03/30/2024 until 03/30/2025 End: 10-02-2023 EMG(NEURO/NI) EMG(NEURO/NI) EMG Routine Disturbance of skin sensation 1 Occurrences starting 10/01/2022 until 10/02/2023 [facility] Work Phone: Comment on above: 1 Occurrences starti ng 10/01/2022 until 10/02/2023 SURGICAL PATHOLOGY SURGICAL PATH OLOGY Lab Routine Anemia, unspecified type Gastric ulcer, unspecified chronicity, unspecified whether gastric ulcer hemorrhage or perforation present Release Upon Ordering for 1 Occurrences starting 10/04/2022 [facility] Work Phone: Comment on above: Release Upon Orderin g for 1 Occurrences starting 10/04/2022 [facility] Immunizations Immunization Date Immunization Notes Care Provider Car rubio 05-22-2023 influenza virus vacc ine, unspecified formulation Stephanie Sanchez SALES ESTIMATOR.AIRCRAFT ENGINE INSTALLER Work Phone: [facility] 04-05-2022 influenza virus vacc ine, unspecified formulation [employer] Work Phone: [facility] 02-28-2018 influenza, high dose seasonal, preservative-free Evangelina Martinez PT Work Phone: [facility] 04-19-2012 influenza virus vacc ine, unspecified formulation Evangelina Martinez PT Work Phone: [facility] Payers Date Payer Category Payer Unknown MMO MMO MEDICARE SUPPLEMENT [id number] 2019-Present [phone] [address] [place] [address] Indemnity [id number] 2019 Unknown MMO MMO MEDICARE SUPPLEMENT [id number] 2019-Present [phone] [address] [place] [address] Indemnity [id number] 2019 Medicare [id number] 2015 Medicare MEDICARE MEDICAR E A AND B [id number] 2015-Present [phone] [place] [address] Medicare [id number] 2015 Medicare MEDICARE MEDICAR E A AND B [id number] 2015-Present [phone] [place] [address] Medicare [id number] 2015 Medicare [id number] Social History Date Type Detail Facility [facility]: [facility]1964 [facility] Start: 02-21-1964 History of tobacco use Cigarette Smo ker [facility] Start: 05-29-2013 End: 10-29-2022 Cigarettes smoked current (pack per day) - Reported 0.5 [facility] Start: 05-29-2013 End: 03-30-2024 Tobacco use and exposure Smokeless tobacco non-user [facility] Start: 07-01-2021 End: 03-30-2024 Alcohol intake Current non-drinker of alcohol (finding) [facility] Start: 02-20-2018 Tobacco Comment advised pt to quit smoking. Quit x 15 years when younger. [facility] Start: 1950 Sex Assigned At Not on file C [facility] Start: 09-04-2021 End: 10-12-2021 Exposure to SARS-CoV-2 (event) Not sure [facility] Start: 12-10-2021 End: 03-30-2024 Tobacco smoking status NHIS Ex-smoker [facility] Start: 02-21-1964 History of tobacco use Current smoke r [facility] Start: 12-10-2021 End: 07-25-2022 Tobacco Comment Reports quit smoking in [place] [facility] Start: 10-02-2022 End: 10-29-2022 Tobacco use panel [facility] PHQ2 Score [address] [facility] (I/We) worried wheth er (my/our) food would run out before (I/we) got money to buy more. Never true [facility] In the past 12 month s, was there a time when you were not able to pay the mortgage or rent on time? No [facility] Medical Equipment Procedure Code Equipment Code Equipment Origin al Text Equipment Identifier Dates Reed Bn Smpx P To bra Fd - [id number] Start: 04-18-2012 Reed Bn Smpx P To bra Fd - [id number] Start: 04-18-2012 Comp Fem 3 Lt Kn Cr Reed Trthln - [id number] Start: 04-18-2012 Shell 52mm D Tri tanium Acetabular Primary Hemispherical Cluster Hole - [id number] Start: 02-27-2018 Liner 32mm 0d D X3 5.9mm Acetabular Hip - [id number] Start: 02-27-2018 Stem Secur-Fit 1 32d 8 Femoral Press Fit Advance Hip - [id number] Start: 02-27-2018 Head V40 32mm 0m m Offset Taper Biolox Delta Femoral Hip - [id number] Start: 02-27-2018 Ins Tib 3 9mm Kn X3 Cr Trthln - [id number] Start: 04-18-2012 Comp Fem 3 Rt Kn Cr Reed Trthln - [id number] Start: 04-18-2012 Ins Tib 3 9mm Kn X3 Cs Trthln - [id number] Start: 04-18-2012 Comp Pat 10mm 35 mm Asym Trthln - [id number] Start: 04-18-2012 Comp Pat 10mm 35 mm Asym Trthln - [id number] Start: 04-18-2012 Baseplt Tib Trth ln 3 Prim - [id number] Start: 04-18-2012 Baseplt Tib Trth ln 3 Prim - [id number] Start: 04-18-2012 Clinical Notes 07-01-2021 to 03-30-2024 Stephanie Sanchez, SALES ESTIMATOR.AIRCRAFT ENGINE INSTALLER - 03/30/2024 2:00 PM Malaika Arana RN - 10/04/2022 1:35 PM EDTLlouis Ye MD - 10/04/2022 1:00 PM Jennifer Mcmahan PA-C - 10/01/2022 11:55 AM EDT Note Date & Type Note Facility 03-30-2024 History of Present illness Narrative HISTORY AND PHYSICAL Sera Francesco : 1950 REFERRING PHYSICIAN: SELF CHIEF COMPLAINT: Patient presents with: Consult: EGD, last EGD 09/2022 HPI: Sera is a 73 year old female referred for endoscopy. Sera notes due for surveillance EGD to verify healing ulcer. Had EGD completed 10/07 with evidence of ulcer, was due to repeat EGD in 6 months. Sera notes heartburn. +nausea since about the first of year but progressively getting worse. She notes she stopped taking her potassium because it is causing her stomach to be upset Sera denies dysphagia. Sera notes a history of ulcers/ peptic ulcer disease. Still taking Protonix Sera was admitted for an overnight stay around spring time, she is unsure of exact date, d/t hypercalcemia from taking too many Tums as a result of her nausea and reflux. Sera has undergone prior endoscopy. Last EGD 10/04/[address] Ye at [facility] with MAC with findings of healing gastric ulcer. Current Outpatient Medications Medication Sig atorvastatin (LIPITOR) 20 mg tablet Take 20 mg by mouth once daily. lidocaine HCL 4 % ptmd Apply 1 Patch to affected area as needed. pantoprazole DR (PROTONIX) 40 mg tablet TAKE 1 TABLET BY MOUTH TWICE A DAY zolpidem tartrate (ZOLPIDEM ORAL) Take 5 mg by mouth daily at bedtime. POTASSIUM CHLORIDE 2.5 MEQ TAB 60 mEq three times daily. predniSONE (DELTASONE) 10 mg tablet Take 10 mg by mouth once daily as needed. TAKE 3-5 DAYS WITH FLARE UPS metoprolol succinate ER (TOPROL XL) 50 mg 24 hr tablet Take 50 mg by mouth once daily. cyanocobalamin (VITAMIN B-12) 100 mcg tab Take 1,000 mcg by mouth once daily. HYDROcodone-acetaminophen (NORCO) 5-325 mg per tablet Take 1 tablet by mouth every 8 hours as needed for pain. cyclobenzaprine (FLEXERIL) 10 mg tablet Take by mouth three times daily as needed for muscle spasm. oxybutynin XL (DITROPAN XL) 5 mg 24 hr tablet Take 1 tablet by mouth daily at bedtime. (Patient taking differently: Take 10 mg by mouth three times a day at 6 am, 12 pm, and 9 pm.) ferrous sulfate 325 mg (65 mg iron) tablet Take 325 mg by mouth twice daily. fluticasone (FLONASE) 50 mcg/actuation nasal spray USE 2 SPRAYS IN EACH NOSTRIL ONCE DAILY. DULoxetine (CYMBALTA) 60 mg capsule Take 1 capsule by mouth once daily. No current facility-administered medications for this visit. ALLERGIES: Kiwi and Zosyn [Piperacillin-Tazobactam] PAST MEDICAL HISTORY Diagnosis Date Anemia Burning mouth syndrome Depression Fibromyalgia GERD (gastroesophageal reflux disease) Hyperhidrosis Hypertension Insomnia Sleep apnea CPAP Vitamin D deficiency PAST SURGICAL HISTORY Procedure Laterality Date ARTHRP KNE CONDYLE&PLATU MEDIAL&LAT COMPARTMENTS Bilateral 04/2012 COLONOSCOPY 07/05/2022 COLONOSCOPY 07/05/2022 EGD 07/05/2022 EGD 07/05/2022 repeat in 3 months EGD W/O BRSH SPEC VARICIES INJ 03/19/2024 FOOT SURGERY HX Left HYSTERECTOMY HX ORTHOPEDICS SURGERY HX left thr ORTHOPEDICS SURGERY HX bilateral tkr TONSILLECTOMY AND ADENOIDECTOMY HX Childhood TONSILLECTOMY HX VAGINAL HYSTERECTOMY UTERUS 250 GM/< 1982 Hysterectomy, vaginal FAMILY HISTORY Problem Relation Age of Onset Colon Cancer Mother Diabetes Mother Stroke Mother Alzheimer's Disease Mother Emphysema Father Diabetes Brother Seizures Brother Social History Tobacco Use Smoking status: Former Current packs/day: 0.50 Average packs/day: 0.5 packs/day for 60.1 years (30.1 ttl pk-yrs) Types: Cigarettes Start date: 02/21/1964 Smokeless tobacco: Never Tobacco comments: Reports quit smoking in Vaping Use Vaping status: Never Used Substance Use Topics Alcohol use: No Drug use: No REVIEW OF SYMPTOMS: SEE HPI PHYSICAL EXAMINATION: General: The patient is 73 year old, female well nourished, well hydrated in no acute distress. The patient is oriented to time, place, and person. VITALS: Blood pressure 150/98, pulse 63, temperature 36 C (96.8 F), height 170.2 cm (5' 7 ), weight 97 kg (213 lb 12.8 oz), SpO2 97%. Body mass index is 33.49 kg/m . HEENT: Normal cephalic, ataumatic, pupils are equally round, sclera are anicteric, mucous membranes are moist, oropharynx is clear. Neck has no masses, asymmetry or lymphadenopathy. Respiratory: Clear to auscultation and percussion. Normal respiratory excursion and pattern. Cardiac: Examination is regular rate and rhythm. Normal S1/S2 Abdominal exam: Soft, nontender, with no palpable masses. No hepatosplenomegaly. No palpable hernias. Extremities: no clubbing, cyanosis or edema. No adenopathy. LABORATORY VALUES: As Noted RADIOLOGIC STUDIES: As Noted Assessment IMPRESSION: history of gastric ulcer, nausea,GERD PLAN: I have reviewed my findings with the surgeon. Will plan for upper endoscopy. We discussed the risks and benefits of the planned endoscopy. I have informed the patient that complications can occur including failure to complete the endoscopy and perforation. Sera had the opportunity to ask questions concerning the planned endoscopy. My staff has also explained the procedure to the patient in understandable terms and has given the patient printed material concerning the procedure. Sera freely consents to surgery. I have explained to the patient the difference between IV conscious sedation and MAC anesthesia - and I have offered either, according to the patient's wishes. I have explained that with IV conscious sedation there is no anesthesia provider available and therefore there is a limitation of the amount of IV medications that can be given and that the patient may wake up in the middle of the procedure and/or experience pain/discomfort during the procedure. Further discussion was done and the patient was given the opportunity to ask questions and all questions were answered. MAC anesthesia. Sera was counseled that if there are changes in his/her medical condition, to let the office know if surgery should proceed. If there are changes in patient's medical condition from time of this encounter to the day of the procedure that preclude anesthesia, patient may have procedure cancelled for patient's safety. Diagnoses: (K25.9) Gastric ulcer without hemorrhage or perforation, unspecified chronicity (primary encounter diagnosis) (R11.0) Nausea (K21.9) Gastroesophageal reflux disease, unspecified whether esophagitis present Portions of this documentation were copied and pasted from previous office visit notes in order to provide a cohesive continuity of the history. The note has been reviewed and edited and updated as necessary. Stephanie Sanchez APRN.CNP documented in this encounter [facility] 03-30-2024 Note HNO ID: [id number] Author: STEPHANIE SANCHEZ APRN.CNP Service: ? Author Type: Nurse Practitioner Type: Progress Notes Filed: 03/31/2024 08:15 Note Text: HISTORY AND PHYSICAL Sera Francesco : 1950 REFERRING PHYSICIAN: SELF CHIEF COMPLAINT: Patient presents with: Consult: EGD, last EGD 09/2022 HPI: Sera is a 73 year old female referred for endoscopy. Sera notes due for surveillance EGD to verify healing ulcer. Had EGD completed 10/07 with evidence of ulcer, was due to repeat EGD in 6 months. Sera notes heartburn. +nausea since about the first of year but progressively getting worse. She notes she stopped taking her potassium because it is causing her stomach to be upset Sera denies dysphagia. Sera notes a history of ulcers/ peptic ulcer disease. Still taking Protonix Sera was admitted for an overnight stay around spring time, she is unsure of exact date, d/t hypercalcemia from taking too many Tums as a result of her nausea and reflux. Sera has undergone prior endoscopy. Last EGD 10/04/[address] Ye at [facility] with MAC with findings of healing gastric ulcer. Current Outpatient Medications Medication Sig atorvastatin (LIPITOR) 20 mg tablet Take 20 mg by mouth once daily. lidocaine HCL 4 % ptmd Apply 1 Patch to affected area as needed. pantoprazole DR (PROTONIX) 40 mg tablet TAKE 1 TABLET BY MOUTH TWICE A DAY zolpidem tartrate (ZOLPIDEM ORAL) Take 5 mg by mouth daily at bedtime. POTASSIUM CHLORIDE 2.5 MEQ TAB 60 mEq three times daily. predniSONE (DELTASONE) 10 mg tablet Take 10 mg by mouth once daily as needed. TAKE 3-5 DAYS WITH FLARE UPS metoprolol succinate ER (TOPROL XL) 50 mg 24 hr tablet Take 50 mg by mouth once daily. cyanocobalamin (VITAMIN B-12) 100 mcg tab Take 1,000 mcg by mouth once daily. HYDROcodone-acetaminophen (NORCO) 5-325 mg per tablet Take 1 tablet by mouth every 8 hours as needed for pain. cyclobenzaprine (FLEXERIL) 10 mg tablet Take by mouth three times daily as needed for muscle spasm. oxybutynin XL (DITROPAN XL) 5 mg 24 hr tablet Take 1 tablet by mouth daily at bedtime. (Patient taking differently: Take 10 mg by mouth three times a day at 6 am, 12 pm, and 9 pm.) ferrous sulfate 325 mg (65 mg iron) tablet Take 325 mg by mouth twice daily. fluticasone (FLONASE) 50 mcg/actuation nasal spray USE 2 SPRAYS IN EACH NOSTRIL ONCE DAILY. DULoxetine (CYMBALTA) 60 mg capsule Take 1 capsule by mouth once daily. No current facility-administered medications for this visit. ALLERGIES: Kiwi and Zosyn [Piperacillin-Tazobactam] PAST MEDICAL HISTORY Diagnosis Date Anemia Burning mouth syndrome Depression Fibromyalgia GERD (gastroesophageal reflux disease) Hyperhidrosis Hypertension Insomnia Sleep apnea CPAP Vitamin D deficiency PAST SURGICAL HISTORY Procedure Laterality Date ARTHRP KNE CONDYLEANDPLATU MEDIALANDLAT COMPARTMENTS Bilateral 04/2012 COLONOSCOPY 07/05/2022 COLONOSCOPY 07/05/2022 EGD 07/05/2022 EGD 07/05/2022 repeat in 3 months EGD W/O BRSH SPEC VARICIES INJ 03/19/2024 FOOT SURGERY HX Left HYSTERECTOMY HX ORTHOPEDICS SURGERY HX left thr ORTHOPEDICS SURGERY HX bilateral tkr TONSILLECTOMY AND ADENOIDECTOMY HX Childhood TONSILLECTOMY HX VAGINAL HYSTERECTOMY UTERUS 250 GM/< 1982 Hysterectomy, vaginal FAMILY HISTORY Problem Relation Age of Onset Colon Cancer Mother Diabetes Mother Stroke Mother Alzheimer's Disease Mother Emphysema Father Diabetes Brother Seizures Brother Social History Tobacco Use Smoking status: Former Current packs/day: 0.50 Average packs/day: 0.5 packs/day for 60.1 years (30.1 ttl pk-yrs) Types: Cigarettes Start date: 02/21/1964 Smokeless tobacco: Never Tobacco comments: Reports quit smoking in [facility] Vaping Use Vaping status: Never Used Substance Use Topics Alcohol use: No Drug use: No REVIEW OF SYMPTOMS: SEE HPI PHYSICAL EXAMINATION: General: The patient is 73 year old, female well nourished, well hydrated in no acute distress. The patient is oriented to time, place, and person. VITALS: Blood pressure 150/98, pulse 63, temperature 36 ?C (96.8 ?F), height 170.2 cm (5' 7 ), weight 97 kg (213 lb 12.8 oz), SpO2 97%. Body mass index is 33.49 kg/m?. HEENT: Normal cephalic, ataumatic, pupils are equally round, sclera are anicteric, mucous membranes are moist, oropharynx is clear. Neck has no masses, asymmetry or lymphadenopathy. Respiratory: Clear to auscultation and percussion. Normal respiratory excursion and pattern. Cardiac: Examination is regular rate and rhythm. Normal S1/S2 Abdominal exam: Soft, nontender, with no palpable masses. No hepatosplenomegaly. No palpable hernias. Extremities: no clubbing, cyanosis or edema. No adenopathy. LABORATORY VALUES: As Noted RADIOLOGIC STUDIES: As Noted Assessment IMPRESSION: history of gastric ulcer, nausea,GERD PLAN: I have reviewed my findings with the surgeo (more content not included)... [facility] 05-01-2023 Note HNO ID: [id number] Author: Odalis Torres RN Service: Care Management Author Type: Registered Nurse Type: Care Mgt Progress Note Filed: 05/01/2023 10:02 AM Note Text: CARE MANAGEMENT DISCHARGE NOTE SERVICE DATE: May 01, 2023 SERVICE TIME: 10:02 AM Admission Date: 04/29/2023 LOS: 1 day Discharge Arrangement Discharge Arrangement: Home with Self Care Services Arranged Medical Services: Other: See Comment Provider Name: NA Phone: NA Caregiver Assessment Caregiver is ready, willing and able to meet the patient's needs as recommended by the inter-professional team: No Caregiver needed Transportation Arrangements Transportation Arrangements: Car Date of Trip: 05/01/23 Destination: home Handoff Communication: Handoff to: Primary Care Physician Primary Care Physician Name/Phone: Galdino Cheung [phone] Additional Information: Discharge written for patient to go home. Patient agreeable to discharge plan and denies needs. to transport. Bedside nurse updated. SOC sent to PCP. SIGNATURE: Odalis Torres RN PATIENT NAME: Sera Dewitt DATE: May 01, 2023 TIME: 10:02 AM CONTACT #: [phone] [facility] 10-04-2022 Nurse Note After approximately 1 minute of entering PACU, nurse observed patient snoring, blood pressure dropping, and O2 sat dropping. This nurse called for assistance. Head of bed lowered and feet elevated. O2 applied via nasal cannula at 2 L. Patient repositioned and jaw repositioned via Geeta Tan RN. Blanquita Reece RN, Poly Lara PATIENT TRANSITION SPECIALIST also at bedside. Patient's O2 sat and blood pressure increased back to within normal readings. Patient alert and oriented. documented in this encounter [facility] 10-04-2022 History and physical note Sera Dewitt 1950 REFERRING PHYSICIAN: Jennifer Ye MD CHIEF COMPLAINT: Follow Up (Colonoscopy and EGD) HPI: The patient is a 71 year old female s/p EGD with fidnigns of gastric ulcers with one large gastric ulcer for which biopsy revealed no evidence of malignancy. Also, H pylori was negative. I have recommended changing her PPI to protonix, instead of omeprazole. Patient did not do so, as she felt that omeprazole works better for her. She had been on this for years and yet findings of gastric ulcer. PAST MEDICAL HISTORY Diagnosis Date Anemia Burning mouth syndrome Depression Fibromyalgia GERD (gastroesophageal reflux disease) Hyperhidrosis Hypertension Insomnia Sleep apnea CPAP Vitamin D deficiency PAST SURGICAL HISTORY Procedure Laterality Date ARTHRP KNE CONDYLE&PLATU MEDIAL&LAT COMPARTMENTS Bilateral 04/2012 COLONOSCOPY 07/05/2022 COLONOSCOPY 07/05/2022 EGD 07/05/2022 EGD 07/05/2022 FOOT SURGERY HX Left HYSTERECTOMY HX ORTHOPEDICS SURGERY HX left thr ORTHOPEDICS SURGERY HX bilateral tkr TONSILLECTOMY AND ADENOIDECTOMY HX Childhood TONSILLECTOMY HX VAGINAL HYSTERECTOMY UTERUS 250 GM/< 1982 Hysterectomy, vaginal Current Outpatient Medications Medication Sig hydroCHLOROthiazide (HYDRODIURIL, ESIDRIX) 25 mg tablet Take 25 mg by mouth once daily as needed. FOR SWELLING POTASSIUM CHLORIDE 2.5 MEQ TAB 60 mEq three times daily. predniSONE (DELTASONE) 10 mg tablet Take 10 mg by mouth once daily as needed. TAKE 3-5 DAYS WITH FLARE UPS metoprolol succinate ER (TOPROL XL) 50 mg 24 hr tablet Take 50 mg by mouth once daily. cyanocobalamin (VITAMIN B-12) 100 mcg tab Take 1,000 mcg by mouth once daily. cholecalciferol, vitamin D3, 10 mcg (400 unit) cap Take 50,000 Units by mouth once daily. HYDROcodone-acetaminophen (NORCO) 5-325 mg per tablet Take 1 tablet by mouth every 8 hours as needed for pain. cyclobenzaprine (FLEXERIL) 10 mg tablet Take by mouth three times daily as needed for muscle spasm. oxybutynin XL (DITROPAN XL) 5 mg 24 hr tablet Take 1 tablet by mouth daily at bedtime. (Patient taking differently: Take 10 mg by mouth 3 times daily at 6AM 12PM and 9PM.) ferrous sulfate 325 mg (65 mg iron) tablet Take 325 mg by mouth twice daily. fluticasone (FLONASE) 50 mcg/actuation nasal spray USE 2 SPRAYS IN EACH NOSTRIL ONCE DAILY. DULoxetine (CYMBALTA) 60 mg capsule Take 1 capsule by mouth once daily. pantoprazole DR (PROTONIX) 40 mg tablet Take 1 tablet by mouth twice daily. (Patient not taking: Reported on 07/25/2022) zolpidem tartrate (ZOLPIDEM ORAL) Take 5 mg by mouth daily at bedtime. (Patient not taking: Reported on 07/25/2022) nystatin (MYCOSTATIN) powder Apply to affected area once daily as needed. oxyCODONE myristate (XTAMPZA ER) 13.5 mg CSpT Take by mouth. (Patient not taking: Reported on 07/25/2022) gabapentin (NEURONTIN) 600 mg tablet Take one tablet in am and one tablet in the evening for 7 days, then 1/2 tablet in the morning and one tablet in the evening for 7 days, then 1/2 tablet in the morning and 1/2 tablet in the evening for 7 days, then 1/2 tablet in the evening for 7 days, then stop. meloxicam (MOBIC) 7.5 mg tablet Take 7.5 mg by mouth once daily. (Patient not taking: Reported on 06/26/2022) ALLERGIES: Kiwi and Zosyn [Piperacillin-Tazobactam] REVIEW OF SYSTEMS: Denies fevers PHYSICAL EXAMINATION: General: The patient is 71 year old female, well nourished, well hydrated in no acute distress. The patient is oriented to time, place, and person. VITALS: Blood pressure 126/72, pulse 89, temperature 36.2 C (97.2 F), height 170.2 cm (5' 7 ), weight 81.2 kg (179 lb), SpO2 98 %. Body mass index is 28.04 kg/m . Head: Normal cephalic, atraumatic Eyes: pupils are equally round, sclera are clear/anicteric Neck is supple with no tracheal deviation Respiratory: Normal respiratory excursion and pattern. Abdominal exam: benign Extremities: no clubbing, cyanosis or edema. Neuro: non focal Psych: normal mood IMPRESSION: gastric ulcer PLAN: I have discussed the above with the patient and her who is present with her. I have recommended continuation on protonix 40 bid I have recommended repeat EGD, possible biopsies to check on healing I have explained the procedure to the patient. I have counseled the patient as to the risks of the procedure, including but not limited to: infection, bleeding, injury to any intrabdominal organs such as liver/spleen, perforation of the GI tract, inability to complete the procedure, complications of anesthesia, etc. - the patient understands. The patient wishes to proceed. I have answered all questions to the patient s satisfaction and the patient has no further questions. documented in this encounter [facility] 10-04-2022 Surgical operation note BRIEF OPERATIVE NOTE SURGERY DATE: 10/04/2022 Incision/Procedure Start Time: 13:06 Incision Close/Procedure End Time: 13:14 Surgeon(s)/Proceduralist(s) and Felt Hat Inspector And Packer(s): rohan Procedures: EGD with biopsies Anesthesia: MAC Findings: gastric ulcer - healing - improved from previous endoscopy, biopsied Estimated Blood Loss: minimal Specimens: biopsies of gastric ulcer Complications: None Closure Technique:NA Preop Diagnosis: gastric ulcer Postop Diagnosis: gastric ulcer - healing SIGNATURE: Jennifer Ye MD PATIENT NAME: Sera Dewitt DATE: October 04, 2022 TIME: 1:15 PM Acct: [id number] [facility] - [facility] [place] : 1950 AGE: 71. SEX: F PATIENT [place] [facility] [place] ATTENDING PHYSICIAN: YENNIFER LARA CSN NUMBER: [id number] DATE OF SURGERY/PROCEDURE: 10/04/2022 INCISION/PROCEDURE START TIME: 1306 INCISION CLOSE/PROCEDURE END TIME: 1314 PREOPERATIVE DIAGNOSIS: Gastric ulcer, not perforated, not bleeding. POSTOPERATIVE DIAGNOSIS: Gastric ulcer, not perforated, not bleeding. SURGEON: Jennifer Ye MD SLOTTER OPERATOR: No Additional Staff SURGERY/PROCEDURE: Esophagogastroduodenoscopy with biopsies. ANESTHESIA: MAC. LOCATION: [facility], 1928–1983. INDICATIONS: Sera Dewitt is a 71-year-old female who presented with the abdominal pain and was status post EGD in June with findings of a gastric ulcer. Biopsies at that time revealed no evidence of any malignancy. She now presents for followup upper endoscopy. She has been counseled of the risks of procedure including, but not limited to, infection, bleeding, perforation, etc. The patient understands and agrees to proceed. DESCRIPTION OF PROCEDURE: After informed consent was given, the patient was brought to the endoscopy suite. Appropriate time-out protocol was done. The patient's posterior pharynx was sprayed with local anesthetic. A bite block was placed. The patient was then given IV anesthesia by the anesthesia provider. The upper endoscope was lubricated carefully and inserted into the patient's mouth, advanced into the esophagus. It was then advanced down the esophagus into the stomach, past the pylorus into the first and then the second portion of the duodenum. There were no masses, polyps, or lesions noted in the duodenum. The endoscope was retracted back into the stomach. There was a large healing ulcer site that was the site of the previous gastric ulcer, which appeared much improved from the last endoscopy. Once again, mucosal biopsies using cold grasper forceps were taken in and around the gastric ulcer to rule out any malignancy. No other masses, polyps, or lesions were noted in the stomach. Retroflexed view in the body and the cardia of the stomach revealed no other lesions. The endoscope was retracted into the esophagus. No other masses, polyps, or lesions were noted in the esophagus. The endoscope was removed intact. The patient tolerated the procedure well, was brought to recovery room in stable condition. Procedure performed is esophagogastroduodenoscopy with biopsies. ESTIMATED BLOOD LOSS: Minimal. SPECIMENS: Mucosal Biopsies of gastric ulcer. COMPLICATIONS: None. RECOMMENDATIONS: EGD in 6 months to evaluate complete healing of gastric ulcer. Patient to stay on Protonix until then. Jennifer Ye MD [id number] documented in this encounter [facility] 10-01-2022 Note HNO ID: [id number] Author: LUANN Golden Service: Radiology Author Type: Technologist Type: Progress Notes Filed: 10/01/2022 11:37 AM Note Text: Radiology Service Progress Note PATIENT NAME: Sera Dewitt DATE OF SERVICE: October 01, 2022 TIME: 11:37 AM PATIENT IDENTITY VERIFICATION COMPLETED USING TWO (2) IDENTIFIERS: Name and Date of confirmed by patient verbally. FALL SCREENING: Has the patient had 2 falls in the last year or 1 fall with injury or currently using an Ambulatory Assistive Device (Walker, Cane, Wheelchair, Crutches, etc.)? Yes, Patient High Risk for Falls What interventions were put in place to prevent falls during this visit? Instructed Patient to Remain Seated (Not on Exam Table) Until Exam and Increased Observations by Caregivers PATIENT GENDER DATA: Female. status: : No status: NO. PATIENT RELEVANT IMPLANT DATA REVIEWED: Not Applicable RADIOLOGY DEPARTMENT: General X-ray: Exam(s) Completed: Upper Extremity X-Ray(s): Wrist, bilateral and Hand, bilateral PERIPHERAL IV DATA: Not applicable SIGNED BY: LUANN Golden October 01, 2022 11:37 AM [facility] 10-01-2022 History of Present illness Narrative Dede Mcmahan PA-C Department of Orthopaedics Orthopaedics [address] [place] [id number] Dept: [phone] October 01, 2022 SUBJECTIVE: CHIEF COMPLAINT: New and Pain of the Left Hand and New and Pain of the Right Hand HPI: Ms. Sera Dewitt is a 71 year old [id number] female. She presents today with bilateral wrist pain and hand numbness. She notes that her hand/wrist has been painful for years and she has had numbness for the past year. Today she rates her hand pain a 3 on a scale of 0-10. She describes the pain as constant and achy. The pain is worse with activity, especially baking. She also notes pins/needles in her hands every morning that affects bilateral digits 1 through 5. She is not taking any medication specifically for the pain. She is managed by rheumatology and takes prednisone as needed. She is unable to take NSAIDs due to CKD and a gastric ulcer. She denies any recent injury or previous hand surgeries. Past Medical History: PAST MEDICAL HISTORY Diagnosis Date Anemia Burning mouth syndrome Depression Fibromyalgia GERD (gastroesophageal reflux disease) Hyperhidrosis Hypertension Insomnia Sleep apnea CPAP Vitamin D deficiency Past Surgical History: PAST SURGICAL HISTORY Procedure Laterality Date ARTHRP KNE CONDYLE&PLATU MEDIAL&LAT COMPARTMENTS Bilateral 04/2012 COLONOSCOPY 07/05/2022 COLONOSCOPY 07/05/2022 EGD 07/05/2022 EGD 07/05/2022 repeat in 3 months FOOT SURGERY HX Left HYSTERECTOMY HX ORTHOPEDICS SURGERY HX left thr ORTHOPEDICS SURGERY HX bilateral tkr TONSILLECTOMY AND ADENOIDECTOMY HX Childhood TONSILLECTOMY HX VAGINAL HYSTERECTOMY UTERUS 250 GM/< 1982 Hysterectomy, vaginal Family History: FAMILY HISTORY Problem Relation Age of Onset Colon Cancer Mother Diabetes Mother Stroke Mother Alzheimer's Disease Mother Emphysema Father Diabetes Brother Seizures Brother Social History: Social History Tobacco Use Smoking status: Former Packs/day: 0.50 Types: Cigarettes Start date: 02/21/1964 Smokeless tobacco: Never Tobacco comments: Reports quit smoking in Vaping Use Vaping Use: Never used Substance Use Topics Alcohol use: No Drug use: No Medications: Current Outpatient Medications Medication Sig pantoprazole DR (PROTONIX) 40 mg tablet TAKE 1 TABLET BY MOUTH TWICE A DAY zolpidem tartrate (ZOLPIDEM ORAL) Take 5 mg by mouth daily at bedtime. hydroCHLOROthiazide (HYDRODIURIL, ESIDRIX) 25 mg tablet Take 25 mg by mouth once daily as needed. FOR SWELLING POTASSIUM CHLORIDE 2.5 MEQ TAB 60 mEq three times daily. predniSONE (DELTASONE) 10 mg tablet Take 10 mg by mouth once daily as needed. TAKE 3-5 DAYS WITH FLARE UPS metoprolol succinate ER (TOPROL XL) 50 mg 24 hr tablet Take 50 mg by mouth once daily. nystatin (MYCOSTATIN) powder Apply to affected area once daily as needed. cyanocobalamin (VITAMIN B-12) 100 mcg tab Take 1,000 mcg by mouth once daily. cholecalciferol, vitamin D3, 10 mcg (400 unit) cap Take 50,000 Units by mouth once daily. HYDROcodone-acetaminophen (NORCO) 5-325 mg per tablet Take 1 tablet by mouth every 8 hours as needed for pain. oxyCODONE myristate (XTAMPZA ER) 13.5 mg CSpT Take by mouth. cyclobenzaprine (FLEXERIL) 10 mg tablet Take by mouth three times daily as needed for muscle spasm. oxybutynin XL (DITROPAN XL) 5 mg 24 hr tablet Take 1 tablet by mouth daily at bedtime. (Patient taking differently: Take 10 mg by mouth 3 times daily at 6AM 12PM and 9PM.) ferrous sulfate 325 mg (65 mg iron) tablet Take 325 mg by mouth twice daily. meloxicam (MOBIC) 7.5 mg tablet Take 7.5 mg by mouth once daily. fluticasone (FLONASE) 50 mcg/actuation nasal spray USE 2 SPRAYS IN EACH NOSTRIL ONCE DAILY. DULoxetine (CYMBALTA) 60 mg capsule Take 1 capsule by mouth once daily. atorvastatin (LIPITOR) 20 mg tablet Take 20 mg by mouth once daily. lidocaine HCL 4 % ptmd Apply 1 Patch to affected area as needed. gabapentin (NEURONTIN) 600 mg tablet Take one tablet in am and one tablet in the evening for 7 days, then 1/2 tablet in the morning and one tablet in the evening for 7 days, then 1/2 tablet in the morning and 1/2 tablet in the evening for 7 days, then 1/2 tablet in the evening for 7 days, then stop. No current facility-administered medications for this visit. Allergies: Kiwi and Zosyn [Piperacillin-Tazobactam] ROS: General: negative for fatigue, malaise, weight loss/gain Musculoskeletal: see HPI Psych: no depression, anxiety OBJECTIVE: Ms. Srea Dewitt is a pleasant 71 year old in no apparent distress. Gen:There were no vitals taken for this visit. nl development, obese, no deformities ENT: Normocephalic, normal hearing, moist mucosa CV: Pulses:Radial= 2+ and symmetric, capillary refill < 2 secs, no peripheral edema/varicosities Skin: no rash, bruising or lesions. Good turgor. Psych: cooperative and appropriate, alert and oriented x 3, good mood and affect. Musculoskeletal: LT thumb with swelling at the base. mild tenderness to palpation at the dorsal capsule with minimal crepitance. Painful grind test. Good motion at the MCP and PIP, no locking or catching. MCP without hyperextension. Median, radial and ulnar nerves are intact. Non-tender first dorsal compartment with a negative Jimmy's test. Bilateral hands There is not evidence of thenar wasting. Decreased sensation on palmar aspect of digits 1-5. Phalen's: negative Tinel's: postive Refueler strength: 5/5 IMAGIN10/02/2022 6:07 PM - Radiology, [place] In Impression IMPRESSION: Osteoarthrosis Instrument Setter: MELANIE Transcribe Date/Time: Oct 02 2022 6:02P Dictated by : PRIYANKA GORMAN MD This examination was interpreted and the report reviewed and electronically signed by: PRIYANKA GORMAN MD on Oct 02 2022 6:04PM EST Results-Findings * * *Final Report* * * DATE OF EXAM: Oct 01 2022 11:35AM ANA MARIA [id number] - XR WRIST 3V PA/LAT/OBL RAMOS / PROCEDURE REASON: [id number] * * * * Physician Interpretation * * * * PROCEDURE: Bilateral hands and wrists INDICATION: Pain .bilateral wrist sweeling, bilateral hand pain, knuckles turn blue TECHNIQUE: XR HAND 3V PA/LAT/OBL RAMOS, XR WRIST 3V PA/LAT/OBL RAMOS COMPARISON: None FINDINGS: Bilateral osteopenia. No fracture or dislocation. Mild bilateral 1st CMC joint osteoarthrosis. More significant osteoarthritic change in all DIP joints bilaterally, severe in the right 2nd DIP joint. No erosion or focal soft tissue swelling. Calcification in the region of the triangular fibrocartilage bilaterally. ASSESSMENT: M19.049 CMC arthritis (primary encounter diagnosis) R20.9 Disturbance of skin sensation PLAN: Reviewed images taken today. Discussed treatment options for CMC arthritis including bracing, corticosteroid injection and topical anti-inflammatories. Patient fitted for and given a brace to be worn for bothersome activities. Given that she has atypical carpal tunnel findings of bilateral hand numbness in digits 1 through 5 recommendation is EMG. EMG ordered today. Patient agreeable with plan will follow-up after. FOLLOW UP INSTRUCTIONS: After EMG Dede Mcmahan PA-C documented in this encounter [facility] 10-01-2022 History of Present illness Narrative Radiology Service Progress Note PATIENT NAME: Sera Dewitt DATE OF SERVICE: October 01, 2022 TIME: 11:37 AM PATIENT IDENTITY VERIFICATION COMPLETED USING TWO (2) IDENTIFIERS: Name and Date of confirmed by patient verbally. FALL SCREENING: Has the patient had 2 falls in the last year or 1 fall with injury or currently using an Ambulatory Assistive Device (Walker, Cane, Wheelchair, Crutches, etc.)? Yes, Patient High Risk for Falls What interventions were put in place to prevent falls during this visit? Instructed Patient to Remain Seated (Not on Exam Table) Until Exam and Increased Observations by Caregivers PATIENT GENDER DATA: Female. status: : No status: NO. PATIENT RELEVANT IMPLANT DATA REVIEWED: Not Applicable RADIOLOGY DEPARTMENT: General X-ray: Exam(s) Completed: Upper Extremity X-Ray(s): Wrist, bilateral and Hand, bilateral PERIPHERAL IV DATA: Not applicable SIGNED BY: LUANN Golden October 01, 2022 11:37 AM documented in this encounter [facility] 08-27-2022 Miscellaneous Notes Patient called requesting the following refill Refill(s) Requested: Requested Prescriptions Pending Prescriptions Disp Refills pantoprazole DR (PROTONIX) 40 mg tablet 60 tablet 0 Sig: Take 1 tablet by mouth twice daily. ALLERGIES Allergen Reactions Kiwi Diarrhea, Vomiting Zosyn [Piperacillin* Shortness of Breath (home) [phone] (cell) Last Office Visit Date: 07/25/2022 Last [facility] [place] [facility] Visit: Visit date not found Future Appointment: Visit date not found The patients preferred pharmacy has been captured for this encounter? yes Request is for script(s) to be escript to pharmacy. Lizette Tim LPN documented in this encounter [facility] 07-16-2022 Miscellaneous Notes Images from the original note were not included. MD Sugey Odonnell RN 2 hours ago (2:34 PM) She has an appointment for next week to see me. In the meantime, I will prescribe protonix which she needs to take twice a day. She can stop taking omeprazole Spoke with Sera. Reviewed Dr. Ye's message above. She voiced understanding. Astrid Aguila RN Patient calling for results of biopsy. Patient states she is still in a lot of pain and wants to know what she can do for it? Follow up scheduled on 07/25. documented in this encounter [facility] 06-26-2022 History of Present illness Narrative HISTORY AND PHYSICAL Sera Francesco 1950 REFERRING PHYSICIAN: No ref. provider found CHIEF COMPLAINT: Consult (COLONOSCOPY) HPI: The patient is a 71 year old female referred for endoscopy. Sera notes that she has been sick since a teenager. She complains of dry heaving and increased burping and inermittent regurgitation. She has been to the ED on numerous occasions for the above. She had previous EGD years ago which showed scar tissue after which she had less pain. From her description, she may have had a Schatzki's ring. She also notes pharyngeal dysphagia - food occasionally gets stuck in her throat. She was on prilosec for years and then changed to Prevacid, however, she still has symptoms. Last EGD was in 2014 with findings of mild gastritis. The patient denies blood in stools, denies abdominal pain, and denies changes in bowel habits. The patient states that her mother was diagnosed with colon cancer in her 80s and lived to age 92.. The patient has had previous colonoscopy in 2015 with findings of colon polyps She was noted in past to have a rectocoele. She has known hypertension and sleep apnea. She is on cymbalta and neurontin. PAST MEDICAL HISTORY Diagnosis Date Anemia Burning mouth syndrome Depression Fibromyalgia GERD (gastroesophageal reflux disease) Hyperhidrosis Hypertension Insomnia Sleep apnea CPAP Vitamin D deficiency PAST SURGICAL HISTORY Procedure Laterality Date ARTHRP KNE CONDYLE&PLATU MEDIAL&LAT COMPARTMENTS Bilateral 04/2012 FOOT SURGERY HX Left HYSTERECTOMY HX ORTHOPEDICS SURGERY HX left thr ORTHOPEDICS SURGERY HX bilateral tkr TONSILLECTOMY AND ADENOIDECTOMY HX Childhood TONSILLECTOMY HX VAGINAL HYSTERECTOMY UTERUS 250 GM/< 1982 Hysterectomy, vaginal Current Outpatient Medications Medication Sig hydroCHLOROthiazide (HYDRODIURIL, ESIDRIX) 25 mg tablet Take 25 mg by mouth once daily as needed. FOR SWELLING POTASSIUM CHLORIDE 2.5 MEQ TAB 60 mEq once daily. predniSONE (DELTASONE) 10 mg tablet Take 10 mg by mouth once daily as needed. TAKE 3-5 DAYS WITH FLARE UPS metoprolol succinate ER (TOPROL XL) 50 mg 24 hr tablet Take 50 mg by mouth once daily. nystatin (MYCOSTATIN) powder Apply to affected area once daily as needed. cyanocobalamin (VITAMIN B-12) 100 mcg tab Take 1,000 mcg by mouth once daily. cholecalciferol, vitamin D3, (VITAMIN D-3) 10 mcg (400 unit) cap Take 50,000 Units by mouth once daily. oxyCODONE myristate (XTAMPZA ER) 13.5 mg CSpT Take by mouth. cyclobenzaprine (FLEXERIL) 10 mg tablet Take by mouth three times daily as needed for muscle spasm. oxybutynin XL (DITROPAN XL) 5 mg 24 hr tablet Take 1 tablet by mouth daily at bedtime. (Patient taking differently: Take 10 mg by mouth 3 times daily at 6AM 12PM and 9PM.) ferrous sulfate 325 mg (65 mg iron) tablet Take 325 mg by mouth twice daily. fluticasone (FLONASE) 50 mcg/actuation nasal spray USE 2 SPRAYS IN EACH NOSTRIL ONCE DAILY. DULoxetine (CYMBALTA) 60 mg capsule Take 1 capsule by mouth once daily. omeprazole (PRILOSEC) 20 mg capsule Take 1 capsule by mouth twice daily. peg 3350-Electrolytes (GOLYTELY) 236-22.74-6.74 -5.86 gram suspension Take 4,000 mL by mouth one time only for 1 dose. Refer to printed prep instructions from your provider. HYDROcodone-acetaminophen (NORCO) 5-325 mg per tablet Take 1 tablet by mouth every 8 hours as needed for pain. (Patient not taking: Reported on 06/26/2022) gabapentin (NEURONTIN) 600 mg tablet Take one tablet in am and one tablet in the evening for 7 days, then 1/2 tablet in the morning and one tablet in the evening for 7 days, then 1/2 tablet in the morning and 1/2 tablet in the evening for 7 days, then 1/2 tablet in the evening for 7 days, then stop. meloxicam (MOBIC) 7.5 mg tablet Take 7.5 mg by mouth once daily. (Patient not taking: Reported on 06/26/2022) ALLERGIES: Kiwi and Zosyn [Piperacillin-Tazobactam] PERSONAL HISTORY: Social History Tobacco Use Smoking status: Former Packs/day: 0.50 Types: Cigarettes Start date: 02/21/1964 Smokeless tobacco: Never Tobacco comments: Reports quit smoking in [facility] Vaping Use Vaping Use: Never used Substance Use Topics Alcohol use: No Drug use: No FAMILY HISTORY Problem Relation Age of Onset Colon Cancer Mother Diabetes Mother Stroke Mother Alzheimer's Disease Mother Emphysema Father Diabetes Brother Seizures Brother REVIEW OF SYSTEMS: General: The patient NOTES fatigue, NOTES weight loss, denies weight gain, NOTES feeling hot, and NOTES feelings of cold. Eyes: The patient denies glaucoma, notes eye injury/surgery, wears glasses or contacts. Ear/Nose/Throat: The patient notes allergies, denies hayfever, denies ear infections, and denies bloody noses. Cardiovascular: The patient denies chest pain, denies heart disease, NOTES high blood pressure,denies cardiac stent, denies prior heart attack, denies irregular heart beat, denies high cholesterol, NOTES poor circulation, denies heart failure, other cardiac issues, denies claudication, denies cold feet, denies peripheral arterial stent. Respiratory: The patient denies tuberculosis, denies pneumonia, denies frequent cough, denies pulmonary embolism, denies shortness of breath, and denies coughing up blood. Gastrointestinal: The patient denies difficulty swallowing, NOTES acid reflux, denies ulcers, denies vomiting, denies jaundice/hepatitis, denies gallbladder problems, denies black or tarry stools, denies hemorrhoids, denies bleeding from rectum, denies diverticulitis, NOTES constipation, NOTES diarrhea, denies loss of stool control, and denies hernias. Kidney/Bladder: The patient denies kidney stones, denies urine infections, and denies bloody urine. Skin: The patient denies a history of skin cancer, NOTES bleeding/changing moles, and denies a history of skin rash. Neurologic: The patient denies a history of epilepsy/convulsions, denies headaches, NOTES head/spinal injuries, and denies stroke/TIA. Psychiatric: The patient denies psychiatric medications, denies depression, and denies voices, denies substance abuse. Endocrine: The patient NOTES thyroid disorders, NOTES diabetes, and denies hormonal problems. Hematologic: The patient NOTES a history of bruising, denies bleeding, and denies anemia, denies blood clots. Infections: The patient denies a history of measles and mumps, denies rheumatic fever, and denies sexually transmitted diseases. Musculoskeletal: The patient NOTES back pain/injury, NOTES back problems, denies sciatica, NOTES knee/foot trouble, denies arthritis, or denies gout. When was patient's last Mammogram screening? N/A Last Colonoscopy: 2014 Alexandra Valenzuela LPN PHYSICAL EXAMINATION: General: The patient is 71 year old female, well nourished, well hydrated in no acute distress. The patient is oriented to time, place, and person. VITALS: Blood pressure 120/82, pulse 93, temperature 36.4 C (97.6 F), height 167.6 cm (5' 6 ), weight 82 kg (180 lb 12.8 oz), SpO2 97 %. Body mass index is 29.18 kg/m . Head: Normal cephalic, atraumatic Eyes: pupils are equally round, sclera are clear/anicteric Neck is supple with no tracheal deviation Respiratory: Normal respiratory excursion and pattern. Abdominal exam: benign Extremities: no clubbing, cyanosis or edema. Neuro: non focal Psych: normal mood Assessment IMPRESSION: acid reflux, history of colon polyps PLAN: I have discussed the above with the patient. I have offered colonoscopy and EGD, possible biopsies I have explained the procedure to the patient. I have counseled the patient as to the risks of the procedure, including but not limited to: infection, bleeding, injury to any intrabdominal organs such as liver/spleen, perforation of the GI tract, inability to complete the procedure, complications of anesthesia, etc. - the patient understands. The patient was offered a surgery/procedure at a [facility] facility. The provider and patient have discussed in detail the risk of exposure to and/or potential harm posed by the COVID-19 virus with having a surgery/procedure at this time versus the risk of delaying the surgery/procedure. It is not possible to know either the risk of delaying the surgery or procedure or chance of getting an infection with perfect accuracy, but a joint decision was made between the patient and the provider to proceed at this time with the scheduled surgery/procedure. The patient wishes to proceed. I have answered all questions to the patient s satisfaction and the patient has no further questions. Diagnoses: (Z86.010) History of colon polyps (K21.9) Gastroesophageal reflux disease, unspecified whether esophagitis present I have confirmed and edited as necessary, the PFSH and ROS obtained by others. Consultation requested by Dr. Galdino Cheung for an opinion regarding patient's dysphagia and abdominal pain. My final recommendations will be communicated back to the requesting physician by way of shared Medical record or letter to requesting physician via US mail. Return to Clinic: The patient will be scheduled for upper and lower endoscopy at [facility]. Medical Decision Making: Problems: Low: Stable chronic illness Risk: Low: Low risk from testing/treatment Medical Decision Making Level: 3 - Low Jennifer Ye MD REVIEW OF SYSTEMS: General: The patient NOTES fatigue, NOTES weight loss, denies weight gain, NOTES feeling hot, and NOTES feelings of cold. Eyes: The patient denies glaucoma, notes eye injury/surgery, wears glasses or contacts. Ear/Nose/Throat: The patient notes allergies, denies hayfever, denies ear infections, and denies bloody noses. Cardiovascular: The patient denies chest pain, denies heart disease, NOTES high blood pressure,denies cardiac stent, denies prior heart attack, denies irregular heart beat, denies high cholesterol, NOTES poor circulation, denies heart failure, other cardiac issues, denies claudication, denies cold feet, denies peripheral arterial stent. Respiratory: The patient denies tuberculosis, denies pneumonia, denies frequent cough, denies pulmonary embolism, denies shortness of breath, and denies coughing up blood. Gastrointestinal: The patient denies difficulty swallowing, NOTES acid reflux, denies ulcers, denies vomiting, denies jaundice/hepatitis, denies gallbladder problems, denies black or tarry stools, denies hemorrhoids, denies bleeding from rectum, denies diverticulitis, NOTES constipation, NOTES diarrhea, denies loss of stool control, and denies hernias. Kidney/Bladder: The patient denies kidney stones, denies urine infections, and denies bloody urine. Skin: The patient denies a history of skin cancer, NOTES bleeding/changing moles, and denies a history of skin rash. Neurologic: The patient denies a history of epilepsy/convulsions, denies headaches, NOTES head/spinal injuries, and denies stroke/TIA. Psychiatric: The patient denies psychiatric medications, denies depression, and denies voices, denies substance abuse. Endocrine: The patient NOTES thyroid disorders, NOTES diabetes, and denies hormonal problems. Hematologic: The patient NOTES a history of bruising, denies bleeding, and denies anemia, denies blood clots. Infections: The patient denies a history of measles and mumps, denies rheumatic fever, and denies sexually transmitted diseases. Musculoskeletal: The patient NOTES back pain/injury, NOTES back problems, denies sciatica, NOTES knee/foot trouble, denies arthritis, or denies gout. When was patient's last Mammogram screening? N/A Last Colonoscopy: 2014 Alexandra Valenzuela LPN documented in this encounter [facility] 06-26-2022 Instructions Jennifer Ye MD - 06/26/2022 5:35 PM EST Images from the original note were not included. Bowel Preparation Instructions for: Golytely, Nulytely, Trilyte or Colyte (polyethylene glycol 3350 and electrolytes) IF YOU DO NOT FOLLOW THESE DIRECTIONS, YOUR COLONOSCOPY WILL BE CANCELLED. Roe Instructions: Your bowel must be empty so that your doctor can clearly view your colon. Follow all of the instructions in this handout EXACTLY as they are written. Do NOT eat any solid food the ENTIRE day before your colonoscopy. Drink only clear liquids. Buy your bowel preparation at least 5 days before your colonoscopy. TRANSPORTATION on the Day of Your Exam A responsible person MUST be present with you at Check In prior to your colonoscopy and REMAIN in the endoscopy area until you are discharged. You are NOT ALLOWED to drive, take a taxi or bus, or leave the Endoscopy Center ALONE. If you do not have a responsible sprinkler truck driver (family member or friend) with you to take you home, your exam cannot be done with sedation and will be cancelled. Please bring a list of all of your current medications, including any Over-the Counter medications with you. Medications If you take insulin, diabetic medications or blood thinners such as Coumadin (warfarin), Plavix (clopidogrel), Ticlid (ticlopidine hydrochloride), Agrylin (anagrelide), Xarelto (Rivaroxaban), Pradaxa (Dabigatran), Eliquis (Apixaban), and Effient (Prasugrel). You MUST call the doctors who orders those medicines for instructions on altering the dosage before your colonoscopy. All other medications should be taken the day of the exam with a sip of water including ASPIRIN. Five (5) Days Before Your Colonoscopy Do NOT take medicines that stop diarrhea - such as Imodium, Kaopectate, or Pepto Bismol. Do NOT take fiber supplements - such as Metamucil, Citrucel, or Perdiem. Do NOT take products that contain iron - such as multi-vitamins (the label lists what is in the products). Do NOT take Vitamin E. Buy the prescription bowel preparation solution at your local pharmacy or drugstore pharmacy. 05/2019 Bowel Preparation Instructions for: Golytely, Nulytely, Trilyte or Colyte (polyethylene glycol 3350 and electrolytes) Three (3) Days Before Your Colonoscopy Do NOT eat high-fiber foods - such as popcorn, beans, seeds (flax, sunflower, quinoa), multigrain bread, nuts, salad/vegetables, or fresh and dried fruit. One (1) Day Before Your Colonoscopy Only drink clear liquids the ENTIRE DAY before your colonoscopy. Do NOT eat any solid foods. Drink at least 8 ounces of clear liquids every hour after waking up. The clear liquids you can drink include: Clear Liquid (NO RED LIQUIDS) DO NOT DRINK Gatorade, Pedialyte or Powerade Clear broth or bouillon Coffee or tea (no milk or non-dairy creamer) Carbonated and non-carbonated soft drinks Alfonso-Aid or other fruit flavored drinks Strained fruit juices (no pulp) Jell-O, popsicles, hard candy Water Alcohol Milk or non-dairy creamers Noodles or vegetables in soup Juice with pulp Liquid you cannot see through Do not use tobacco/vaping products The bowel preparation solution will be consumed in two parts. Mix the solution the evening before your colonoscopy and refrigerate before drinking. You may add the flavor pack that came with the bowel preparation. Do NOT add ice, sugar or any other flavorings to the solution. Part 1 At 6:00 PM - Evening before your colonoscopy Drink an 8-oz glass of bowel preparation every 10 minutes for a total of 8 glasses. You may continue to drink clear liquids until midnight. Part 2 On the day of your colonoscopy you may drink clear liquids up to (three) 3 hours before your procedure. 4 1/2 hours before your colonoscopy Drink an 8-oz glass of bowel preparation every 10 minutes for a total of 8 glasses. Fifteen (15) minutes later, drink an 8-oz glass of clear liquids every 15 minutes for a total of 2 glasses. You may continue to drink clear liquids up to (three) 3 hours before your exam. 2 05/2019 documented in this encounter [facility] 06-26-2022 Miscellaneous Notes Patient need prep Tin sent to [facility] in [place] as procedure is next in [place] 07/05/22 Thank you 07/05/2022 colon/egd lodi documented in this encounter [facility] 10-12-2021 History of Present illness Narrative Episode Visit Count: 6 Therapist That Will Oversee The Plan Of Care: Darcie Martinez Start of Care Date: 08/04/21 Onset Date: 06/30/21 Plan of Care Certification Date: 08/04/21 Next Certification Due Date: 11/02/21 Patient Identified by Name and Date of : Yes REHABILITATION AND SPORTS THERAPY PHYSICAL THERAPY TREATMENT NOTE ASSESSMENT: Sera Dewitt tolerated the session with decreased pain. She demonstrated difficulty with lack of strength in left shoulder complex, and improvements in AROM left shoulder flexion in gravity aided position . The patient will continue to benefit from ongoing skilled physical therapy to progress toward set goals and for reassessment by supervising therapist. 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[employer] Pain: Pain Pain Level: 2 (withou left shoulder motion , 4 /10 with overhead motion) Pain Location: Shoulder - Left;Back Description: Dull;Aching Frequency: Continuous Post Treatment Pain Post Treatment Pain Level: 2 (with left shoulder motion) Post Treatment Pain Location: Shoulder - Left OBJECTIVE MEASURES WITH LEVEL OF FUNCTION: UE AROM L Shoulder Flex: 154 Degrees TREATMENT: Therapeutic Exercise: 1: seated pulleys flexion scaption 10 x 2 each standing left shoulder ER/IR15 x each 2: seated AROM left shoulder cross body ab/adduction limited by pain 3: seated function left shoulder ER reaching up to groom hair, 5 x 2 4: post humeral mobs and stm of lateral left scapula , AROM left shoulder flexioin AROM 5 x 2 supine , 5 x seated Skilled Intervention: Patient was educated in proper exercise technique and purpose for exercises. Skilled judgment was provided in selection of appropriate interventions. Manual Therapy: 1: patient sidelying right , manual release of left scapula, lateral border, 6 min 2: patient supine left humeral glides posterior lateral and inferior 6 min Skilled Intervention: Manual skills to improve joint mobility, ROM, and decrease pain. Utilized anatomy knowledge of the therapist, and assessment of patient's response to intervention. Therapeutic Activity: 1: patient seated with good posture and slight left shoulder ER taped supra and infra spinatus distally to proximal,2 pieces of tape, 1 piece of tape, anterior superior to posterior across left scapular inferior angle 2: educated patient on use of tape and indication and contraindication of use of tape, as well as removing tape Skilled Intervention: Education see above Billing Therapeutic Exercise Treatment Minutes: 20 Manual TherapyTreatment Minutes: 12 Therapeutic Activity Treatment Minutes: 10 Total Treatment Time Minutes (timed/untimed): 42 Jorje Choi PTA documented in this encounter [facility] 10-05-2021 History of Present illness Narrative Episode Visit Count: 5 Therapist That Will Oversee The Plan Of Care: Darcie Martinez Start of Care Date: 08/04/21 Onset Date: 06/30/21 Plan of Care Certification Date: 08/04/21 Next Certification Due Date: 11/02/21 Patient Identified by Name and Date of : Yes REHABILITATION AND SPORTS THERAPY PHYSICAL THERAPY TREATMENT NOTE ASSESSMENT: Sera Dewitt tolerated the session with decreased pain and expected muscle soreness. She demonstrated improvements in pain free AROM left shoulder flexion post mobilization of left shoulder . The patient will continue to benefit from ongoing skilled physical therapy to progress toward set goals. PLAN FOR NEXT VISIT: progress ROM and strength in left shoulder use mobs and stm as needed to gain pain free motion left shoulder SUBJECTIVE: Patient Reason for Visit: patient reports back pain is worse than left shoulder pain, reports able to move left shoulder in gravity dependent positions , but continues with pain Pain: Pain Pain Level: 4 Pain Location: Back;Shoulder - Left (back 8/10) Description: Sore Frequency: Intermittent Post Treatment Pain Post Treatment Pain Level: 0 Post Treatment Pain Location: Shoulder - Left;Back (back continues at 8/10) OBJECTIVE MEASURES WITH LEVEL OF FUNCTION: UE AROM L Shoulder Flex: 138 Degrees (post left humeral mobs) TREATMENT: Therapeutic Exercise: 1: seated pulleys flexion scaption 10 x 2 each standing left shoulder ER/IR15 x each 2: supine AROM left shoudler flexion 5 x 2 pre and post mobilizations 3: supine isometric left shoulder abduction 5 second hold x 5 x 2 , left shoulder ER 5 second hold x 5 x 2 4: supine self sleeper stretch 30 sec x 2 5: supine and seated AROM left shoulder ER 10 x each 6: seated scap sets 10 x 2 Skilled Intervention: Patient was educated in proper exercise technique and purpose for exercises. Skilled judgment was provided in selection of appropriate interventions. Manual Therapy: 1: manual release of left scapula, lateral border, 6 min 2: patient sidelying , small to big circles with left humerus, up to soft tissue barriers 6 min 3: patient supine left humeral glides posterior lateral 6 min Skilled Intervention: Manual skills to improve joint mobility, ROM, and decrease pain. Utilized anatomy knowledge of the therapist, and assessment of patient's response to intervention. Billing Therapeutic Exercise Treatment Minutes: 30 Manual TherapyTreatment Minutes: 17 Total Treatment Time Minutes (timed/untimed): 47 Jorje Choi PTA documented in this encounter [facility] 09-14-2021 History of Present illness Narrative Episode Visit Count: 4 Therapist That Will Oversee The Plan Of Care: Darcie Martinez Start of Care Date: 08/04/21 Onset Date: 06/30/21 Plan of Care Certification Date: 08/04/21 Next Certification Due Date: 11/02/21 REHABILITATION AND SPORTS THERAPY PHYSICAL THERAPY PROGRESS REPORT PLAN OF CARE UPDATE: Assessment: Sera Dewitt demonstrates improvements in physical activities, reaching behind back, reaching overhead, use hand with arm at shoulder level, driving, cleaning and grooming. She presents 10 weeks s/p proximal L humerus fx from a fall. She has progressed toward goals. Patient continues to present with impairments in ADL's, independence in exercise, overall function, range of motion, strength and tissue tenderness that interfere with physical activities;lifting;reaching overhead;cleaning . Current prognosis is good . She will benefit from continued skilled therapy services to meet the updated goals for this plan of care as noted below. Goals for Episode of Care: created on 08/04/21 through 11/02/21 [place] in home exercise program. Patient will decrease pain to 0/10 with functional activities to allow patient to improve tolerance for ADLs. Patient will increase active ROM of L shoulder to WNL to allow pt to to improve performance of ADLs. Patient will demonstrate increase in LUE strength to 4+/5 during manual muscle testing in order to improve function for basic self-care tasks. Perform reaching, cleaning, and cooking with decreased report of symptoms/pain in 10 weeks. Improve postural awareness. Patient Goals: get arm to stop hurting and to move better Planned Interventions, Frequency, and Duration: 1x/week, Patient to be seen for Therapeutic exercise (40527);Manual therapy (42925);Therapeutic activities (40801);Self-[place] [facility] management (28596);Patient/Family/Caregiver Education;General Conditioning PLAN FOR NEXT VISIT: progress L shoulder ROM (passive & active), also address strength SUBJECTIVE: Patient Reason for Visit: reports increased shoulder soreness after last session but says it felt good to have arm stretched overhead. says overall shoulder feels better after taking a break from PT but she still has trouble lifting arm overhead. Pt says she had increased shoulder pain after starting PT so the Dr told her to hold off on doing PT for a month. Pt says he told her to limit lifting her arm overhead at that point but now she can and she reports no restrictions. Pt says went she went for f/u with Dr last month she found out she had 2 fractures near elbow along with the one by shoulder. Functional Limitations: physical activities;lifting;reaching overhead;cleaning Pain: Pain Pain Level: 4 Pain Location: Shoulder - Left;Upper Arm - Left;Elbow - Left Description: Dull;Sore;Aching Frequency: Intermittent PROMIS Scales Higher is Better 04/28/2015 [facility] Physical - Percentile 4 % GH Mental - Percentile 13 % T-scores: mean of general population = 50. 5 points is clinically meaningfully difference Percentiles provide an indication of how the patient's score ranks in relation to the general population. Higher percentile rankings indicate better function/quality of life. 50th percentile is the average of the general population and indicates half of respondents had a worse score. T-scores: mean of general population = 50. 5 points is clinically meaningfully difference Percentiles provide an indication of how the patient's score ranks in relation to the general population. Higher percentile rankings indicate better function/quality of life. 50th percentile is the average of the general population and indicates half of respondents had a worse score. OBJECTIVE MEASURES WITH LEVEL OF FUNCTION: Posture / Alignment L Shoulder Alignment: Protracted scapula;Rounded shoulder (L shoulder tends to hang lower than R) Shoulder Observations L Shoulder Palpation Tenderness: Trapezius (deltoid) UE AROM R UE AROM: R shoulder wnl & painfree L UE AROM: L shoulder limited by pain, stiffness & weakness L Shoulder Flex: 130 Degrees (seated - limited by pain & weakness) L Shoulder ABduction: 90 Degrees L Shoulder Internal Rotation (Functional): T12 L Shoulder External Rotation: 65 Degrees (supine 90/90) L Shoulder External Rotation (Functional): C6 UE PROM L Shoulder Flex: 160 Degrees L Shoulder External Rotation: 75 Degrees UE and Cervical Strength Strength Tested: Shoulder Functional Strength R UE Strength: R shoulder grossly 4+ to 5/5 L UE Strength: L shoulder weakness as noted below L Shoulder Flexion: 3-/5 L Shoulder Abduction (C5): 3-/5 L Elbow Flexion (C6): 4+/5 TREATMENT: Therapeutic Exercise: 1: UBE L1x3' standing (limited by fatigue vs shoulder pain) 2: *wall wash FE 5xL 3: seated AROM L shoulder all planes (limited by pain & weakness) 4: seated elbow AROM flexion/extension, supination/pronation (wnl & painfree) 5: *supine AAROM with cane FE & ER 10xea 6: *supine shoulder FE AROM 10x 7: *sidelying shoulder Abd AROM 10x 8: *sidelying shoulder ER AROM 10x 9: seated scap sets 10xB (VCs to avoid shoulder shrug) 10: re-check Skilled Intervention: Patient was educated in proper exercise technique and purpose for exercises. Reviewed and educated patient on additions/changes for home exercise program as above (*). Skilled judgment was provided in selection of appropriate interventions. Correct performance of therapeutic exercises was facilitated with verbal, visual and tactile cuing. Education in use of heat and ice and parameters for each. Educated patient on rationale for performing exercises in regards to increase ease of ADL and ROM and function. Patient education as noted. Manual Therapy: 1: STM/DTM to L UT/LS 2: STM to L upper arm & deltoid Skilled Intervention: Manual skills to improve joint mobility, ROM, and decrease pain. Utilized anatomy knowledge of the therapist, and assessment of patient's response to intervention. Billing Therapeutic Exercise Treatment Minutes: 50 Manual TherapyTreatment Minutes: 10 Total Treatment Time Minutes (timed and untimed codes) : 60 Evangelina Martinez PT documented in this encounter [facility] 07-01-2021 History of Past i llness Narrative Problem Noted Date Resolved Date Syncope 07/01/2021 07/02/2021 NO SHOW 10/27/2014 02/20/2018 Urinary incontinence 05/29/2013 documented as of this encounter (statuses as of 09/14/2021) [facility] History of Past illness Narrative* Problem Noted Date Resolved Date Syncope 07/01/2021 07/02/2021 NO SHOW 10/27/2014 02/20/2018 Urinary incontinence 05/29/2013 documented as of this encounter (statuses as of 10/05/2021) [address] History of Past illness Narrative* Problem Noted Date Resolved Date Syncope 07/01/2021 07/02/2021 NO SHOW 10/27/2014 02/20/2018 Urinary incontinence 05/29/2013 documented as of this encounter (statuses as of 10/12/2021) [address]15-2022 History of Past illness Narrative* Problem Noted Date Resolved Date Syncope 07/01/2021 07/02/2021 NO SHOW 10/27/2014 02/20/2018 Urinary incontinence 05/29/2013 documented as of this encounter (statuses as of 06/30/2022) [address]15-2022 History of Past illness Narrative* Problem Noted Date Resolved Date Syncope 07/01/2021 07/02/2021 NO SHOW 10/27/2014 02/20/2018 Urinary incontinence 05/29/2013 documented as of this encounter (statuses as of 07/16/2022) [address]-2022 History of Past illness Narrative* Problem Noted Date Resolved Date Syncope 07/01/2021 07/02/2021 NO SHOW 10/27/2014 02/20/2018 Urinary incontinence 05/29/2013 documented as of this encounter (statuses as of 07/25/2022) [address]15-2022 History of Past illness Narrative* Problem Noted Date Resolved Date Syncope 07/01/2021 07/02/2021 NO SHOW 10/27/2014 02/20/2018 Urinary incontinence 05/29/2013 documented as of this encounter (statuses as of 08/27/2022) [address]-2022 History of Past illness Narrative* Problem Noted Date Resolved Date Syncope 07/01/2021 07/02/2021 NO SHOW 10/27/2014 02/20/2018 Urinary incontinence 05/29/2013 documented as of this encounter (statuses as of 10/05/2022) [address]15-2022 History of Past illness Narrative* Problem Noted Date Resolved Date Syncope 07/01/2021 07/02/2021 NO SHOW 10/27/2014 02/20/2018 Urinary incontinence 05/29/2013 documented as of this encounter (statuses as of 10/05/2022) [facility] note* Diagnosis Other closed displaced fracture of proximal end of left humerus, sequela- Primary Left shoulder pain, unspecified chronicity Decreased ROM of left shoulder Shoulder weakness Other symptoms referable to shoulder joint documented in this encounter [facility] note* Diagnosis Other closed displaced fracture of proximal end of left humerus, sequela- Primary Left shoulder pain, unspecified chronicity Decreased ROM of left shoulder Shoulder weakness Other symptoms referable to shoulder joint documented in this encounter [facility] note* Diagnosis Other closed displaced fracture of proximal end of left humerus, sequela- Primary Left shoulder pain, unspecified chronicity Decreased ROM of left shoulder Shoulder weakness Other symptoms referable to shoulder joint documented in this encounter [facility] note* Diagnosis History of colon polyps Personal history of colonic polyps Gastroesophageal reflux disease, unspecified whether esophagitis present documented in this encounter [facility] note* Diagnosis Abdominal pain, epigastric- Primary Personal history of colonic polyps Dysphagia, unspecified type documented in this encounter [facility] note* Diagnosis CMC arthritis- Primary Unspecified arthropathy, hand Disturbance of skin sensation documented in this encounter [facility] note* Diagnosis Anemia, unspecified type- Primary Gastric ulcer, unspecified chronicity, unspecified whether gastric ulcer hemorrhage or perforation present documented in this encounter [facility] note* Diagnosis Pain Generalized pain documented in this encounter [facility] note* Diagnosis Gastric ulcer without hemorrhage or perforation, unspecified chronicity- Primary Nausea Nausea alone Gastroesophageal reflux disease, unspecified whether esophagitis present documented in this encounter [facility] for referral (narrative)* Outpatient Procedure (Routine) - Closed Specialty Diagnoses / Procedures Referred By Martin mac Referred To Contact [facility] Diagnoses Personal history of colonic polyps Dysphagia, unspecified type Procedures EGD DIAGNOSTIC EGD DIAGNOSTIC ESOPHAGOGASTRODUODENOSC OPY TRANSORAL DIAGNOSTIC Jennifer Ye MD [address] [place] [address] [facility] [address] [place] [address] Referral ID Status Reason Start Date Expiration Date V isits Requested Visits Authorized [id number] Closed Auto-Generate d Referral 06/26/2022 06/26/2023 1 1 * Outpatient Procedure (Routine) - Closed Specialty Diagnoses / Procedures [facility] Diagnoses Abdominal pain, epigastric Personal history of colonic polyps Dysphagia, unspecified type Procedures COLONOSCOPY DIAGNOSTIC COLONOSCOPY DIAGNOSTIC COLONOSCOPY FLX DX W/COLLJ SPEC WHEN PFRMD Jennifer Ye MD [address] [place] [address] [address] Referral ID Status Reason Start Date Expiration Date V isits Requested Visits Authorized [id number] Closed Auto-Generate d Referral 06/26/2022 06/26/2023 1 1 [facility] for referral (narrative)* Outpatient Procedure (Routine) - Authorized Specialty Diagnoses / Procedures [facility] Diagnoses Disturbance of skin sensation Procedures EMG(NEURO/NI) NERVE CONDUCTION STUDIES 9-10 STUDIES Dede Mcmahan PA-C [address] [place] [address] [place] [address] Referral ID Status Reason Start Date Expiration Date Visits Requested Visits Authorized [id number] Authorized Auto-Generat ed Referral 10/01/2022 10/02/2023 1 1 [facility] for referral (narrative)* Outpatient Procedure (Routine) - Closed Specialty Diagnoses / Procedures Referred By [facility] t Referred To [facility] Diagnoses Gastric ulcer, unspecified chronicity, unspecified whether gastric ulcer hemorrhage or perforation present Procedures EGD DIAGNOSTIC ESOPHAGOGASTRODUODENOSC OPY TRANSORAL DIAGNOSTIC Jennifer Ye MD [address] [place] [address] [facility] [address] [place] [address] Referral ID Status Reason Start Date Expiration Date V isits Requested Visits Authorized [id number] Closed Auto-Generate d Referral 07/25/2022 07/25/2023 1 1 [facility] for referral (narrative)* Diagnostic Procedure Only (Routine) - Closed Specialty Diagnoses / Procedures Referred By Contac t Referred To Contact [facility] Diagnoses Pain Procedures XR WRIST GENERAL 3V PA/LAT/OBL BILATERAL RADEX WRIST COMPLETE MINIMUM 3 VIEWS RegottiKristineDede, PA-C [address] [place] [address] [place] [id number] Referral ID Status Reason Start Date Expiration Date V isits Requested Visits Authorized [id number] Closed Auto-Generate d Referral 09/10/2022 10/10/2023 1 1 * Diagnostic Procedure Only (Routine) - Closed Specialty Diagnoses / Procedures Referred By Contac t Referred To Contact XR IMAGING Diagnoses Pain Procedures XR HAND GENERAL 3V PA/LAT/OBL BILATERAL RADEX HAND MINIMUM 3 VIEWS Dede Mcmahan, PA-C [address] [place] [address] [place] [id number] Referral ID Status Reason Start Date Expiration Date V isits Requested Visits Authorized [id number] Closed Auto-Generate d Referral 09/10/2022 10/10/2023 1 1 [facility] for referral (narrative)* Outpatient Procedure (Routine) - Authorized Specialty Diagnoses / Procedures Referred By Contac t Referred To Contact [facility] Diagnoses Gastric ulcer without hemorrhage or perforation, unspecified chronicity Procedures EGD DIAGNOSTIC ESOPHAGOGASTRODUODENOSC OPY TRANSORAL DIAGNOSTIC Stephanie Sanchez APRN.[employer] INST[employer]ER [address] [place] [address] [facility] [address] [place] [address] Referral ID Status Reason Start Date Expiration Date Visits Requested Visits Authorized [id number] Authorized Auto-Generat ed Referral 03/30/2025 1 1 [facility] for visit Narrative* Outpatient Procedure (Routine) - Closed Specialty Diagnoses / Procedures Referred By Contac t Referred To Contact [facility] Diagnoses Gastric ulcer, unspecified chronicity, unspecified whether gastric ulcer hemorrhage or perforation present Procedures EGD DIAGNOSTIC ESOPHAGOGASTRODUODENOSC OPY TRANSORAL DIAGNOSTIC Jennifer Ye MD [address] [place] [address] [facility] [address] [place] [address] Referral ID Status Reason Start Date Expiration Date V isits Requested Visits Authorized [id number] Closed Auto-Generate d Referral 07/25/2022 07/25/2023 1 1 [facility] for visit Narrative* Diagnostic Procedure Only (Routine) - Closed Specialty Diagnoses / Procedures Referred By Contjose t Referred To Contact XR IMAGING Diagnoses Pain Procedures XR WRIST GENERAL 3V PA/LAT/OBL BILATERAL RADEX WRIST COMPLETE MINIMUM 3 VIEWS Dede Mcmahan PA-C [address] [place] [address] [place] [id number] Referral ID Status Reason Start Date Expiration Date V isits Requested Visits Authorized [id number] Closed Auto-Generate d Referral 09/10/2022 10/10/2023 1 1 [facility] Summary Purpose Family History No Family History Records FoundNo Family History Records FoundNo Family History Records FoundNo Family History Records Found Advance Directives No Advanced Directives Records FoundDocuments on File Type Date Recorded Patient 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 Expl anation Advance Directive(s) 07/01/2021 12:01 AM Advance Directive(s) 07/01/2021 11:03 AM Advance Directive(s) 08/25/2020 12:37 PM Advance Directive(s) 03/10/2019 10:06 AM Advance Directive(s) 03/03/2018 3:06 PM Advance Directive(s) 02/27/2018 1:55 PM Medications Administered Section Inactive Administered Medications - up to 3 most recent administrations Medication Order MAR Action Action Date Dose Rate Site benzocaine 20 % mucosal spray (HURRICAINE ONE) MUCOUS MEMBRANE (TOPICAL MOUTH & THROAT), ONCE, 1 dose, On [place] 10/04/22 at 1300, Intraprocedure Given 10/04/2022 1:00 PM EDT lactated ringers iv infusion 75 mL/hr, INTRAVENOUS, CONTINUOUS, Starting on [place] 10/04/22 at 1300, Until [place] 10/04/22 at 1328, Preprocedure New Bag/Syringe/Bottle 10/04/2022 12:45 PM EDT 75 mL/hr 75 mL/hr Additional Source Comments INFORMATION SOURCE (unrecogn ized section and content) DATE CREATED AUTHOR 08/26/2020 [facility] DATE CREATED AUTHOR AUTHOR'S ORGANIZ ATION 05/02/2023 [facility] DATE CREATED AUTHOR AUTHOR'S ORGANIZ ATION 04/01/2024 [facility] DATE CREATED AUTHOR AUTHOR'S ORGANIZ ATION 04/06/2024 [facility] Source Comments (unrecognize d section and content) In the event this informatio n is protected by the Federal Confidentiality of Alcohol and Drug Abuse Patient Records regulations: The Federal rules restrict any use of the information to criminally investigate or prosecute any alcohol or drug abuse patient.[facility] the event this information is protected by the Federal Confidentiality of Alcohol and Drug Abuse Patient Records regulations: The Federal rules restrict any use of the information to criminally investigate or prosecute any alcohol or drug abuse patient.[facility] the event this information is protected by the Federal Confidentiality of Alcohol and Drug Abuse Patient Records regulations: The Federal rules restrict any use of the information to criminally investigate or prosecute any alcohol or drug abuse patient.[facility] the event this information is protected by the Federal Confidentiality of Alcohol and Drug Abuse Patient Records regulations: The Federal rules restrict any use of the information to criminally investigate or prosecute any alcohol or drug abuse patient.[facility] the event this information is protected by the Federal Confidentiality of Alcohol and Drug Abuse Patient Records regulations: The Federal rules restrict any use of the information to criminally investigate or prosecute any alcohol or drug abuse patient.[facility] the event this information is protected by the Federal Confidentiality of Alcohol and Drug Abuse Patient Records regulations: The Federal rules restrict any use of the information to criminally investigate or prosecute any alcohol or drug abuse patient.[facility] the event this information is protected by the Federal Confidentiality of Alcohol and Drug Abuse Patient Records regulations: The Federal rules restrict any use of the information to criminally investigate or prosecute any alcohol or drug abuse patient.[facility] SystemIn the event this information is protected by the Federal Confidentiality of Alcohol and Drug Abuse Patient Records regulations: The Federal rules restrict any use of the information to criminally investigate or prosecute any alcohol or drug abuse patient.[facility] SystemIn the event this information is protected by the Federal Confidentiality of Alcohol and Drug Abuse Patient Records regulations: The Federal rules restrict any use of the information to criminally investigate or prosecute any alcohol or drug abuse patient.[facility] SystemIn the event this information is protected by the Federal Confidentiality of Alcohol and Drug Abuse Patient Records regulations: The Federal rules restrict any use of the information to criminally investigate or prosecute any alcohol or drug abuse patient.[facility] SystemIn the event this information is protected by the Federal Confidentiality of Alcohol and Drug Abuse Patient Records regulations: The Federal rules restrict any use of the information to criminally investigate or prosecute any alcohol or drug abuse patient.[facility] Reason for Visit (unrecogniz ed section and content) Reason Comments Physical Therapy Specialty Diagnoses / Procedures Referred By Martin mac Referred To Contact Physical Therapy / PHYSICAL THERAPY Diagnoses fx left shoulder Procedures NEW RS PT ORTH Melquiades Sewell [address] [facility] [address] [place] [address] Andreia Madrid, PT [address] [place] [address] Referral ID Status Reason Start Date Expiration Date V isits Requested Visits Authorized [id number] Authorized 08/04/2021 12/14/2021 99 99 Reason Comments Physical Therapy PT Progress Note Reason Comments Consult COLONOSCOPY Reason Comments Results Reason Comments 07/05/2022 colon/egd lodi Reason Onset Date Comments Refill Request 08/27/2022 protonix Reason Comments New Pain Reason Comments Consult EGD, last EGD 09/2022 Care Teams (unrecognized sec tion and content) Dulser Relationship Specialty Start Date End Date Galdino Cheung DO [address] [place] [address] PCP - General Family Practice 05/15/16 Dulser Relationship Specialty Start Date End Date Galdino Cheung, DO [address] [place] [address] [place], [place] [address] PCP - General Family Practice 05/15/16 Dulser Relationship Specialty Start Date End Date Galdino Cheung DO [address] [place], [place] [id number] PCP - General Family Practice 05/15/16 Dulser Relationship Specialty Start Date End Date Galdino Cheung, DO [address] [place], [place] [address] PCP - General Family Medicine 05/15/16 Dulser Relationship Specialty Start Date End Date Galdino Cheung DO [address] [place], [place] [id number] PCP - General Family Medicine 05/15/16 Dulser Relationship Specialty Start Date End Date Galdino Cheung, DO [address] [place], [place] [id number] PCP - General Family Medicine 05/15/16 Dulser Relationship Specialty Start Date End Date Galdino Cheung, DO [address] [place], [place] [id number] PCP - General Family Medicine 05/15/16 Dulser Relationship Specialty Start Date End Date Galdino Cheung, DO [address] [place], [place] [id number] PCP - General Family Medicine 05/15/16 Dulser Relationship Specialty Start Date End Date Galdino Cheung DO [address] [place] [address] PCP - General Family Medicine 05/15/16 Dulser Relationship Specialty Start Date End Date Galdino Cheung DO [address] [place] [address] PCP - General Family Medicine 05/15/16 Dulser Relationship Specialty Start Date End Date Galdino Cheung DO [address] [place] [address] PCP - General [facility] 05/15/16 FOR RECORDS PERTAINING TO PATIENTS WHO ARE OR HAVE BEEN ENROLLED IN A CHEMICAL DEPENDENCY/SUBSTANCEABUSE PROGRAM, SOME INFORMATION MAY BE OMITTED. This clinical summary was aggregated from multiple sources. Caution should be exercised in using it in the provision of clinical care. This summary normalizes information from multiple sources, and as a consequence, information in this document may materially change the coding, format and clinical context of patient data. In addition, data may be omitted in some cases. CLINICAL DECISIONS SHOULD BE BASED ON THE PRIMARY CLINICAL RECORDS. [facility]. provides no warranty or guarantee of the accuracy or completeness of information in this document.
== END | disposition home or self-care (01) ==
PROVIDERS: PCP Family Medicine; Referring Provider Podiatrist Foot & Ankle Surgery; Visit Provider Podiatrist Foot & Ankle Surgery
DX: M79.661 Pain in right lower leg (principal); M79.662 Pain in left lower leg; I73.9 Peripheral vascular disease, unspecified
CPT/HCPCS: 93923; 93970

== ENCOUNTER → 2024-07-23 | Outpatient (CLI) | payer MEDICARE, OTHER, SELFPAY ==
[2024-07-23 17:45] LABS: Absolute Lymphocyte Count 1.69 X10^3/uL (0.83-4.51); Basophil# 0.04 X10^3/uL; Basophil% 0.4 % (0-1); Eosinophil# 0.05 X10^3/uL; Eosinophils% 0.5 % (0-5); Hematocrit 43.4 % (37-47); Hemoglobin 14.4 g/dL (12.0-15.0); Lymphocyte # 1.69 X10^3/ul (0.83-4.51); Lymphocyte % 15.8 % (19-41); Mean Corp Hgb Conc 33.2 g/dL (32-36); Mean Corpuscular Hgb 28.6 pg (27.0-32.0); Mean Corpuscular Volume 86.3 fL (81-99); Mean Platelet Vol. 9.7 fl (6.2-12.0); Monocyte# 0.79 X10^3/uL; Monocyte% 7.4 % (0-10); NRBC Flagged by Analyzer 0 % (0-5); Platelet Count 349 K/mm3 (150-450); RBC Distribution Width CV 13.2 % (11.6-14.6); RBC Distribution Width SD 41.4 fl (35.1-43.9); Red Blood Count 5.03 M/mm3 (4.2-5.4); White Blood Count 10.7 K/mm3 (4.4-11.0)
[2024-07-23 18:06] LABS: AST(SGOT) 23 U/L (15-37); Alanine Aminotransfer ALT/SGPT 31 U/L (13-56); Albumin, Serum 3.7 g/dL (3.2-5.0); Alkaline Phosphatase 95 U/L (45-117); Anion Gap 10 (5-15); BUN 28 mg/dL (7-18); BUN/Creat Ratio 20.9 RATIO (10-20); Calcium,Total 9.8 mg/dL (8.5-10.1); Chloride 96 mmol/L (98-107); Creatinine, Serum 1.34 mg/dL (0.55-1.02); EST Glomerular Filtration Rate 41 mL/min (>60); Est Glom Filt Rate - Afr Amer 50 mL/min (>60); Globulin 3.7 g/dL (2.2-4.2); Glucose 117 mg/dL (74-106); Potassium 3.5 mmol/L (3.5-5.1); Protein, Total 7.4 g/dL (6.4-8.2); Sodium Level 131 mmol/L (136-145)
[2024-07-23 18:14] LABS: Vitamin D,25 Hydroxy 28.8 ng/mL
[2024-07-28 13:07] LABS: Cotinine Screen Blood <1.0 ng/mL (.); Nicotine Blood <1.0 ng/mL (.)
== END | disposition home or self-care (01) ==
LOC: BFHLAB 15:27
PROVIDERS: PCP Family Medicine; Visit Provider Family Medicine
DX: Z01.818 Encounter for other preprocedural examination (principal); E55.9 Vitamin D deficiency, unspecified; I10 Essential (primary) hypertension
CPT/HCPCS: 36415; 80053; 80323; 82306; 85025; G0480

== ENCOUNTER 2024-07-31 05:40 | Day surgery (SDC) | payer MEDICARE, OTHER, SELFPAY ==
--- NOTE | 2024-07-27 11:40 | PAT.ANESEVAL ---
Pre-Assessment Diagnosis/Proposed Procedure Planned Operative Procedure(s): Right foot Vazquez suspension with interphalangeal joint fusion, Arthrodesis of the second and third proximal interphalangeal joint, Arthroplasty of thefourth proximal interphalangeal joint with harvest of calcaneal bone graft. 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 When Was Last Pacemaker Check QUESTION #4 FULL TEXT: You/Your Family Experience fever (hyperthermia) with Anesthesia Last Oral Intake Last Oral intake: Last Oral Intake NPO since Meds taken in AM with sips of water? Meds patient instructed to take am of surgery PONV PONV - lens engraver: PONV - lens engraver Female Yes 07/27/24 09:27 HX of Motion Sickness No 07/27/24 09:27 HX of N/V After Surgery No 07/27/24 09:27 Non-Smoker Yes 07/27/24 09:27 Duration of Surgery greater Yes 07/27/24 09:27 than 60 minutes Number of Risk Factors 3 07/27/24 09:27 PONV Score Moderate Risk 07/27/24 09:27 Height & Weight Height & Weight: Anesthesia: Height & Weight Height 5 ft 6 in 10/17/21 13:23 Respiratory Assessment Respiratory Assessment - lens engraver: Respiratory Tract Infection Hx - lens engraver Hx Respiratory Tract Infection No 07/27/24 09:27 STOP Sleep Apnea STOP Sleep Apnea - lens engraver: STOP Sleep Apnea - lens engraver Hx Hypertension Yes: CONTROLLED ON MED 07/27/24 09:27 Hx Sleep Apnea No 07/27/24 09:27 CPAP No 07/27/24 09:27 BIPAP No 07/27/24 09:27 Do you snore loudly (louder No 07/27/24 09:27 than talking or can be heard Do you often feel tired/ No 07/27/24 09:27 fatigued/ sleepy during daytime? Has anyone observed you stop No 07/27/24 09:27 breathing during sleep? STOP Results Negative 07/27/24 09:27 QUESTION #5 FULL TEXT : Do you snore loudly (louder than talking or can be heard through closed doors)? Tobacco Use History Tobacco Use History - lens engraver: Tobacco Use History - lens engraver Tobacco Use Smoking Status Former smoker 07/27/24 09:27 Hx Tobacco Use No 07/27/24 09:27 Years Smoking Packs Smoked per Day Smoking Cessation Date was No - quit smoking greater 07/27/24 09:27 within the last 15 years than 15 years ago Hx Smoking Cessation Date Hx Smoking Cessation Counseling Hematologic Medial History Hematologic Hx - lens engraver: Hematologic Medical Hx - napper fixer Hx of Blood Transfusion No 07/27/24 09:27 Hx of Transfusion in last 3 No 07/27/24 09:27 Months Date of Last Transfusion (if within last 3 months) Ever experience any problems No 07/27/24 09:27 with transfusion(s)? Specify any problems Hx of Preganancy in last 3 No 07/27/24 09:27 Months Nurse Filling Out Transfusion VCHRISTIN 07/27/24 09:27 & Questions: Date: 07/27/24 07/27/24 09:27 Time: 09:28 07/27/24 09:27 Patient unable to answer at this time (ie. confused, unrespo /Reproduction History /Reproductive History - lens engraver: /Reproductive Hx- lens engraver Hx Now Gestational Age (in weeks): EDC: Hx Hx Para Hx Section SAB [facility], [facility] Medical History (Updated 07/27/24 @ 09:26 by Lizett Acuña) Wears dentures Wears glasses Post-menopausal History of steroid therapy Thyroid disease Diabetes Arthritis Back pain Syncope Difficulty swallowing History of hiatal hernia History of ulceration Colitis Gastric reflux Former smoker History of stress test Closed fracture of left proximal humerus Humerus fracture GERD (gastroesophageal reflux disease) Hypertension Fibromyalgia Diabetes mellitus type 2 in obese Left-sided colitis Home Medications ?Medication ?Instructions ?Recorded ?Last Taken ?Type cyclobenzaprine 10 mg tablet 10 mg PO TID fibromyalgia 08/25/20 Unknown History duloxetine 60 mg capsule,delayed 60 mg PO DAILY depression 08/25/20 Unknown History release hydrochlorothiazide 25 mg tablet 25 mg PO DAILY HTN 08/25/20 Unknown History metoprolol succinate 50 mg 50 mg PO DAILY 07/27/24 Unknown History tablet,extended release 24 hr oxybutynin chloride 10 mg 10 mg PO DAILY 07/27/24 Unknown History tablet,extended release 24 hr pantoprazole 40 mg tablet,delayed 40 mg PO BID 07/27/24 Unknown History release potassium chloride 20 mEq 60 meq PO DAILY 07/27/24 Unknown History tablet,extended release(part/cryst) Allergy/AdvReac Type Severity Reaction Status Date / Time kiwi Allergy Angioedema Verified 07/27/24 09:10 Family History Mother Colon cancer Diabetes Brother Cancer Surgical History S/P hysterectomy History of total left hip arthroplasty History of bilateral knee replacement Social History Smoking Status: Former smoker alcohol intake: never Audit: Pertinent Findings Pertinent Findings EKG Perinent findings: 08/26/2020 normal sinus rhythm 77 bpm normal EKG Stress test pertinent findings: 02/04/2019 negative EF 76% Recommendation Anesthesia Recommendation Anesthesia recommendation: OPTIMIZED for anesthesia
[2024-07-31] VITALS (10 sets, daily range): BP systolic 134–160; BP diastolic 55–91; PULSE 76–96; RESP 16; TEMP 36.1–36.8; O2SAT 92–97; BMI 33.7
--- NOTE | 2024-07-31 06:30 | RAD_ITS ---
Fluoroscopic guidance was used intraoperatively. Please refer to the operative note for further details. Total fluoroscopy time 51.5 seconds. Total radiation dose 0.40 mGy. Reading Location: [facility]
[2024-07-31] MEDS: 0.9% Normal Saline (1000mL) 1,000 ML 15 ML IV (06:38)
[2024-07-31 06:59] LABS: Bedside Glucose 109 mg/dL (74-106)
--- NOTE | 2024-07-31 07:26 | PRE.ANES_ITS ---
ASA Classification* ASA Classification ASA Classification: 2 Assessment & Plan Anesthesia* Anesthesia Assessment Anesthesia Assessment: Discussed sedation and/or anesthesia options, risks, benefits, and alternatives with patient/parents/legal guardian/POA. Questions invited. The patient/parents/legal guardian/POA seems to understand and agrees to proceed with anesthesia plan. Reviewed the physical assessment, medical history, allergy history and patient home medications list prior to surgery/procedure/anesthetic and documented any changes. Performed airway and anesthesia risk assessments. Anesthesia Type Anesthesia Type: General Anesthesia Focused Assessment* Temperature: 97 F Pulse Rate: 76 Blood Pressure: 134/82 Respiratory Rate: 16 Pulse Ox: 97 Airway Assessment Mouth opens: >3 cm Mallampati Score: II Focused Labs Anesthesia Preop lab: CBC WBC 10.7 K/mm3 (4.4-11.0) 07/23/24 15:07/23/24 RBC 5.03 M/mm3 (4.2-5.4) 07/23/24 15:07/23/24 Hgb 14.4 g/dL (12.0-15.0) 07/23/24 15:07/23/24 Hct 43.4 % (37-47) 07/23/24 15:07/23/24 Plt Count 349 K/mm3 (150-450) 07/23/24 15:07/23/24 CHEMISTRY Potassium 3.5 mmol/L (3.5-5.1) 07/23/24 15:07/23/24 Sodium 131 mmol/L (136-145) L 07/23/24 15:07/23/24 Magnesium 1.8 mg/dL (1.6-2.6) 08/26/20 04:00 08/26/20 Phosphorus 3.3 mg/dL (2.5-4.9) 08/26/20 04:00 08/26/20 BUN 28 mg/dL (7-18) H 07/23/24 15:07/23/24 Creatinine 1.34 mg/dL (0.55-1.02) H 07/23/24 15: Glucose 117 mg/dL (74-106) H 07/23/24 15:07/23/24 POC Glucose 109 mg/dL (74-106) H 07/31/24 06:30 07/31/24 TSH 0.94 uIU/mL (0.358-3.74) 04/05/22 13:49 COAG Pre-Assessment Diagnosis/Proposed Procedure Planned Operative Procedure(s): Right foot Vazquez suspension with interphalangeal joint fusion, Arthrodesis of the second and third proximal interphalangeal joint, Arthroplasty of thefourth proximal interphalangeal joint with harvest of calcaneal bone graft. 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 When Was Last Pacemaker Check QUESTION #4 FULL TEXT: You/Your Family Experience fever (hyperthermia) with Anesthesia Last Oral Intake Last Oral intake: Last Oral Intake NPO since 04:00 07/31/24 06:24 Meds taken in AM with sips of Yes 07/31/24 06:24 water? Meds patient instructed to see 07/31/24 06:24 take am of surgery PONV PONV - digital media designer: PONV - digital media designer Female Yes 07/27/24 09:27 HX of Motion Sickness No 07/27/24 09:27 HX of N/V After Surgery No 07/27/24 09:27 Non-Smoker Yes 07/27/24 09:27 Duration of Surgery greater Yes 07/27/24 09:27 than 60 minutes Number of Risk Factors 3 07/27/24 09:27 PONV Score Moderate Risk 07/27/24 09:27 Height & Weight Height & Weight: Anesthesia: Height & Weight Height 5 ft 6 in 07/31/24 06:24 Weight: 94.801 kg 07/31/24 06:24 Body Mass Index (BMI) 33.7 07/31/24 06:24 Respiratory Assessment Respiratory Assessment - digital media designer: Respiratory Tract Infection Hx - digital media designer Hx Respiratory Tract Infection No 07/27/24 09:27 STOP Sleep Apnea STOP Sleep Apnea - digital media designer: STOP Sleep Apnea - digital media designer Hx Hypertension Yes: CONTROLLED ON MED 07/27/24 09:27 Hx Sleep Apnea No 07/27/24 09:27 CPAP No 07/27/24 09:27 BIPAP No 07/27/24 09:27 Do you snore loudly (louder No 07/27/24 09:27 than talking or can be heard Do you often feel tired/ No 07/27/24 09:27 fatigued/ sleepy during daytime? Has anyone observed you stop No 07/27/24 09:27 breathing during sleep? STOP Results Negative 07/27/24 09:27 QUESTION #5 FULL TEXT : Do you snore loudly (louder than talking or can be heard through closed doors)? 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 Specify any problems Hx of Preganancy in last 3 No 07/27/24 09:27 Months Nurse Filling Out Transfusion VCHRISTIN 07/27/24 09:27 & Questions: Date: 07/27/24 07/27/24 09:27 Time: :07/27/24 09:27 Patient unable to answer at this time (ie. confused, unrespo /Reproduction History /Reproductive History - digital media designer: /Reproductive Hx- digital media designer Hx Now Gestational Age (in weeks): EDC: Hx Hx Para Hx Section SAB Active Medications Active Medications: Current Medications Generic Name Dose Route Start Last Admin Trade Name Freq PRN Reason Stop Dose Admin Cefazolin Sodium 2 gm/ N/A 20 mls @ 400 mls/hr 07/31/24 07:30 IV 07/31/24 07:32 PREOP ONE Sodium Chloride 1,000 mls @ 15 mls/hr 07/31/24 06:00 07/31/24 06:38 IV 08/05/24 19:19 15 mls/hr .Q48H SANTOS Administration Protocol [facility] Medical History Wears dentures Wears glasses Post-menopausal History of steroid therapy Thyroid disease Diabetes Arthritis Back pain Syncope Difficulty swallowing History of hiatal hernia History of ulceration Colitis Gastric reflux Former smoker History of stress test Closed fracture of left proximal humerus Humerus fracture GERD (gastroesophageal reflux disease) Hypertension Fibromyalgia Diabetes mellitus type 2 in obese Left-sided colitis Home Medications ?Medication ?Instructions ?Recorded ?Last Taken ?Type cyclobenzaprine 10 mg tablet 10 mg PO TID fibromyalgia 08/25/20 Unknown History duloxetine 60 mg capsule,delayed 60 mg PO DAILY depres viji 08/25/20 07/30/24 History release hydrochlorothiazide 25 mg tablet 25 mg PO DAILY HTN 07/30/24 History metoprolol succinate 50 mg 50 mg PO DAILY 07/27/24 04:00 History tablet,extended release 24 hr oxybutynin chloride 10 mg 10 mg PO DAILY 07/27/2407/18 History tablet,extended release 24 hr pantoprazole 40 mg tablet,delayed 40 mg PO BID 5 07/30/24 History release potassium chloride 20 mEq 60 meq PO DAILY 07/27/24 History tablet,extended release(part/cryst) Allergy/AdvReac Type Severity Reaction Status Date / Time kiwi Allergy Angioedema Verified 07/31/24 06:22 Family History Mother Colon cancer Diabetes Brother Cancer Surgical History S/P hysterectomy History of total left hip arthroplasty History of bilateral knee replacement Social History Smoking Status: Former smoker alcohol intake: never Review of Systems (Anesthesia) ROS Narrative System reviewed and no additional complaints, except as documented.
[2024-07-31] MEDS: Thrombin 5,000 IU Kit (PSA) 5,000 IU Vial 5000 IU TOPICAL (07:34)
[2024-07-31] MEDS: Heparin 10,000 UNITS/10 ML Vial 10000 UNITS (07:34)
[2024-07-31] MEDS: Cefazolin 2 GM in Syringe IV (07:34)
[2024-07-31] MEDS: Calcium Chloride 1 GM/10 ML Syringe (07:34)
[2024-07-31] MEDS: Bupivacaine Mpf 0.5% 30 ML VIAL (07:50)
--- NOTE | 2024-07-31 10:18 | PCM.OPRPT ---
Problems Associated Problem List Diagnoses (1) Pain in right foot: (2) Other hammer toe(s) (acquired), right foot: (3) Primary osteoarthritis, right ankle and foot: (4) Contracture, right foot: Operative Report (Standard) Operative Information Date of Procedure: 07/31/24 Pre-Operative Diagnosis: 1. Hallux malleus, right foot 2. Contracture of foot, right foot 3. Hammertoes, right foot 4. Pain, right foot 5. Osteoarthritis, right foot Post-Operative Diagnosis: 1. Hallux malleus, right foot 2. Contracture of foot, right foot 3. Hammertoes, right foot 4. Pain, right foot 5. Osteoarthritis, right foot Surgery/Procedure Performed: Procedure #1: [place] of bone marrow aspirate concentrate, right foot Procedure #2: [place] of calcaneal bone graft, right foot Procedure #3: Vazquez tenosuspension with interphalangeal joint arthrodesis, right hallux Procedure #4: Proximal interphalangeal joint arthrodesis, second digit, right foot Procedure #5: Proximal interphalangeal joint arthrodesis, third digit, right foot Procedure #6: Proximal interphalangeal joint arthroplasty, fourth digit, right foot Procedure #7: Derotational arthroplasty, fifth digit, right foot bottle filler: Yes .Net Developer: STEWART Thomas Tasks completed by recruitment assistant: Closing Additional product development assistant?: No Type of Anesthesia: General and Local RN Documented Start/Stop Times: Operation Date: 07/31/24 07:30 Case Time Into Pre-Op 07/31/24 05:59 Out of Pre-Op 07/31/24 07:30 Anesthesia Start 07/31/24 07:34 Into Room 07/31/24 07:34 Procedure Start 07/31/24 07:54 Procedure End 07/31/24 10:16 Anesthesia End 07/31/24 10:20 Out of Room 07/31/24 10:20 Into Recovery 07/31/24 10:22 Out of Recovery 07/31/24 11:08 Into Phase II Recovery 07/31/24 11:09 Out of Phase II 07/31/24 12:24 Procedure Start Time: 07:54 Procedure Stop Time: 10:16 Select all DRAINS/GRAFTS/IMPLANTS that apply: Graft Graft details: Calcaneal Bone Graft [place], 2cc Viaflow, BMAC and Implanted device Implanted device details: [place] toe implants, 4-0 Screw Special Medications: Per anesthesia Estimated Blood Loss: 30 mL Fluids Replaced: Per anesthesia Specimen collected: No Description of surgery: Indications For Operation: Mrs. Dewitt is a 73-year-old female who was admitted to [facility] for right foot surgery consisting of hammertoe contracture, hallux malleus and pain to the right foot. Patient was seen in private office and was seen for multiple appointments due to her hammertoe contracture and right foot pain. Patient did receive vascular studies that showed no vascular compromise if she was removed forward with surgery. After failing conservative treatment it was deemed necessary at this time to take patient operating room to perform the above prescription to help correct her toes and decrease her constant pain. Patient did have formal consultation in private office with chart review consent signed. All risk and benefits were discussed with patient great detail. The nature of the problem, anticipated procedures, postop recovery/convalences and risk/complications include but not limited to infection, wound healing complications, digital amputation, hypertrophic scarring, numbness, tingling, chronic pain, CRPS, over and under correction, recurrence of deformity, DVT and or PE and the need for further surgery have been discussed in great detail with the patient. All questions have been answered to the patient's satisfaction. There are no guarantees given as to the outcome of the procedure. Description of Procedure: Under mild sedation, the patient was brought into the operating room and placed on the operating table in supine position. Once the patient was under general anesthesia with laryngeal mask airway, the right lower extremity was blocked using approximately 30 cc 0.5% Marcaine plain. Next, a well-padded thigh tourniquet was applied to the right lower extremity. Next, the right lower extremity was prepped and draped in normal aseptic manner. Next, a timeout was then undertaken verifying the correct patient, extremity, visibility of preoperative markings, availability of the equipment. Procedure #1: [place] of bone marrow aspirate concentrate, right foot (CPT code: 21311) Next, attention was directed to the lateral aspect of the calcaneus of the right lower extremity. Using a Jamshidi needle and mallet the trocar of the Jamshidi needle was advanced through the lateral wall of the calcaneus. Once secured in place, 60 cc of bone marrow aspirate concentrate was harvested and passed the back table to be spun down to be used later in the case. Next, attention was directed to the right lower extremity. Using a 4 inch Esmarch, right lower extremity was exsanguinated and elevated to 60 degrees for 1 minute. Procedure #2: [place] of calcaneal bone graft, right foot (CPT code: 13851) Next, attention was directed to the lateral aspect of the right calcaneus. Using a #15 blade, a full-thickness incision, approximately 1 cm, was made down to bone without incident. Continued blunt dissection was carried out with curved hemostats. Using the Calix 7 mm bone graft harvester, calcaneal bone harvest less than than 5 cc was made, then removed from the calcaneus and passed the back table to be used later in the case, for the [metatarsal phalangeal joint] arthrodesis procedure. The incision was flushed with copious bryant of normal saline. The skin was reapproximated and closed using 3-0 nylon in simple interrupted suture technique. Procedure #3: Vazquez tenosuspension with interphalangeal joint arthrodesis, right hallux (CPT code: 14216?T5) Next, attention was directed to the first ray at the level of the right hallux. There showed evidence of a hallux malleus contracture which is nonreducible. Using a sterile skin marker the incision was mapped out along the extensor hallucis longus tendon. Full-thickness incision down to subcutaneous tissue was performed. Continued blunt dissection was carried down to the level of the EHL tendon with care not to violate the tendon. The tendon was released from its insertion at the distal phalanx and lifted back from its capsular attachment to the level of the surgical neck. Next, using a 15 blade, capsulotomy was performed at the IPJ of the right hallux. There show evidence of osteoarthritis appreciated to the level of the joint. Using a sagittal saw the head of the proximal phalanx was removed in the past the back table to be discarded. The base of the distal phalanx was feathered in all articular cartilage was removed. Using a K wire from the AgSquared set with the rep in the room the K wire was advanced through the distal phalanx to the base of the proximal phalanx and checked in AP and lateral view on C-arm fluoroscopy and showed to be in good position. The K wire was backed out to allow application of the calcaneal graft harvest application for this part of the procedure. Using the cannulated drill, the commercial airline pilot hole was placed through the distal phalanx followed by a 4-0 partially-threaded screw by AO technique and showed good apposition after placement of the screw. Next, the EHL tendon was cut back to length to allow for insertion to the surgical neck of the first metatarsal. The end was whipstitched. A large Steinmann pin was used out of the Bio-Tenodesis screw set for placement in the surgical neck, perpendicular to the long arm of the metatarsal. Its placement was checked with the C arm fluoroscopy. Using the reamer, the hole was drilled to approximately 15 mm in length. Its length was also checked on C arm fluoroscopy. Using the already placed K wire the whipstitch tendon was advanced through the commercial airline pilot hole in the first metatarsal with tension. The 5 mm x 10 mm Bio-Tenodesis screw was advanced and mallet in place. Its placement was checked clinically as well as on C-arm fluoroscopy. The remaining FiberWire suture was cut on the plantar aspect of the foot. Incision was flushed with cold bryant normal saline. The capsule was reapproximated closed using 4-0 Monocryl running locking suture technique. Procedure #4: Proximal interphalangeal joint arthrodesis, second digit, right foot (CPT code: 62008?T6) Next, attention was directed to the dorsal aspect of the PIPJ of the right second digit. Using a sterile skin marker, a longitudinal incision was marked out at the level of the second metatarsal phalangeal joint and proximal interphalangeal joint of the right second digit. Using a #15 blade, a full-thickness incision down to subcutaneous tissue was made. Using sens retractors, the skin was lifted up and out and continued blunt dissection was carried down to the long extensor tendon. Once the extensor tendon was identified a plowing technique was performed on the medial and lateral aspects of the extensor tendon. A capsulotomy was performed at the PIPJ and the tendon was gently released to allow exposure of the PIPJ joint. The extensor tendon was removed but intact down to the level of the second metatarsal phalangeal joint. The capsule was identified and transected. Care was taken to identify the medial and lateral collateral ligaments of the PIPJ of the second digit which were released. Using a pickup and sagittal saw with a #114 blade, the head of the proximal phalanx was removed and passed the back table to be discarded. The base of the intermediate phalanx of the second digit was feathered to remove the articular cartilage to expose the subchondral bone. Next, using a small McGlamery elevator the adhesions on the second metatarsal head were freed. Next, the incision was flushed with copious normal saline. Next, using the wire transportation driver provided by the PhaLinx surgical kit, the appropriate size drill was used to make the commercial airline pilot holes in the base and head of the intermediate and proximal phalanx. The implant was inserted, 10 degree implant per the fitness/wellness director's recommendation with the rep in the room. After securing the 2 bones together there showed excellent apposition across the PIPJ of the second digit. The medial and lateral collateral ligaments were reconstructed using 4-0 Monocryl in simple interrupted suture technique. Extensor tendon was secured back to the proximal phalanx and physiological tension using 4-0 Monocryl and over and over suture technique. The subcutaneous layer was reapproximated closed using a 4-0 Monocryl and running locking suture technique. Procedure #5: Proximal interphalangeal joint arthrodesis, third digit, right foot (CPT code: 10397?T7) Next, attention was directed to the dorsal aspect of the PIPJ of the right third digit. Using a sterile skin marker, a longitudinal incision was marked out at the level of the third metatarsal phalangeal joint and proximal interphalangeal joint of the right third digit. Using a #15 blade, a full-thickness incision down to subcutaneous tissue was made. Using sens retractors, the skin was lifted up and out and continued blunt dissection was carried down to the long extensor tendon. Once the extensor tendon was identified a plowing technique was performed on the medial and lateral aspects of the extensor tendon. A capsulotomy was performed at the PIPJ and the tendon was gently released to allow exposure of the PIPJ joint. The extensor tendon was removed but intact down to the level of the third metatarsal phalangeal joint. The capsule was identified and transected. Care was taken to identify the medial and lateral collateral ligaments of the PIPJ of the second digit which were released. Using a pickup and sagittal saw with a #114 blade, the head of the proximal phalanx was removed and passed the back table to be discarded. The base of the intermediate phalanx of the third digit was feathered to remove the articular cartilage to expose the subchondral bone. Next, using a small McGlamery elevator the adhesions on the third metatarsal head were freed. Next, the incision was flushed with copious normal saline. Next, using the wire transportation driver provided by the PhaLinx surgical kit, the appropriate size drill was used to make the commercial airline pilot holes in the base and head of the intermediate and proximal phalanx. The implant was inserted, 0 degree implant per the fitness/wellness director's recommendation with the rep in the room. After securing the 2 bones together there showed excellent apposition across the PIPJ of the third digit. The medial and lateral collateral ligaments were reconstructed using 4-0 Monocryl in simple interrupted suture technique. Extensor tendon was secured back to the proximal phalanx and physiological tension using 4-0 Monocryl and over and over suture technique. The subcutaneous layer was reapproximated closed using a 4-0 Monocryl and running locking suture technique. Procedure #6: Proximal interphalangeal joint arthroplasty, fourth digit, right foot (CPT code: 28825?T8) Next, attention was directed to the dorsal aspect of the PIPJ of the fourth digit of the right foot. Using a oblique incision across the PIP joint down to subcutaneous tissue. The excess tissue was lifted and discarded. The medial and lateral collateral ligaments were freed to expose the head of the proximal phalanx. Using a a pickup and sagittal saw with a #114 blade, the head of the proximal phalanx was removed and passed back table to be discarded. Incision was flushed with copious normal saline. Procedure #7: Derotational arthroplasty, fifth digit, right foot (CPT code: 35775?T9) Next, attention was directed back to the dorsal aspect of the fifth digit of the right foot. Using a sterile skin marker and oblique incision from distal medial to proximal lateral was marked out. Using a #15 blade full-thickness vision down to subcutaneous tissue was performed. The oblique incision skin was lifted and passed to be discarded on the back table. The medial and lateral collateral ligaments were freed to expose the head of the proximal phalanx. Using a pickup and sagittal saw with a #114 blade, the head of the proximal phalanx was removed and passed the back table to be discarded. 3 positioning of the skin prior to closure showed excellent derotation of the fifth digit on the right foot. At this time the right thigh tourniquet was deflated and reperfusion was noted instantly to the right lower extremity and all lesser digits of the right foot. All bleeders were cauterized and ligated as necessary. All incisions were flushed with copious normal saline. The fifth digit subcutaneous tissue was reapproximated closed with 4-0 Monocryl and buried suture technique. The fifth digit skin was reapproximated closed using 4-0 nylon in simple interrupted suture technique. The fourth digit subcutaneous tissue was reapproximate closed with 4-0 Monocryl in buried suture technique. The fourth digit skin was reapproximated closed using 4-0 nylon in simple interrupted suture technique. The third and second digit subcutaneous tissue was reapproximated closed using 4-0 Monocryl and running suture technique. The third and second digit skin was reapproximated closed using 4-0 nylon in simple interrupted suture technique. The first ray incision skin was reapproximated closed using a combination of horizontal mattress and simple interrupted suture with 4-0 nylon. The right lower extremity was cleaned and patted dry. 2 cc of via flow injected into all incisions. Bone marrow aspirate concentrate was injected into the arthrodesis sites of the hallux, second and third digits as well as the area of the EHL tendon. Again the right foot was wiped clean and patted dry. PPP spray was applied to all incisions followed by Betadine soaked Adaptic dry sterile dressing and a single layer multilayer compression bandage was donned to the right foot. The patient tolerated the procedure and anesthesia well and apparent satisfactory condition and was transported to the PACU for further monitoring prior to discharge home. Vital signs stable and vascular status intact to all digits bilateral. Post Operative Plan: Weightbearing: Partial weightbearing to heel with surgical shoe right foot, full weightbearing left foot. Antibiotics: 2 g Ancef through the IV DVT Prophylaxis: 81 mg aspirin [place]: None Dressing: PPP, Betadine soaked Adaptic dry sterile dressing and compression wrap. X-Rays: Post-operative films taken on the operating room. Pain Medication: Percocet 5/325 Follow-up: Patient will follow-up 1 week in office. Surgical Findings: 1. Evidence of nonreducible contracted hammertoes with osseous changes at the level of the proximal maternal ventral joint of digits 2 and 3. Evidence of hallux malleus contracture with evidence of nonreducible contracture with osseous changes. After removal of interposing bone to the digits 1, 2 and 3 there is evidence of good apposition with orthopedic hardware. Complications Complications: No Admit VTE Documentation VTE Present on Admission: No VTE Mechan Device Prophylaxis: SCD's VTE Pharm Prophylaxis ordered?: Yes
--- NOTE | 2024-07-31 11:00 | PCM.POST.ANE ---
Anesthesia: Postop Eval I Current Vital Signs Temperature: 97.8 F Pulse Rate: 94 Blood Pressure: 145/91 Respiratory Rate: 16 Pulse Ox: 95 Oxygen Delivery Method: Room Air Assessment Airway patent: Yes Spontaneous unlabored respirations: Yes Mental status: Awake and Calm nausea: No Vomiting: No Anesthesia Complication: No Fluid Hydration Crystalloid volume administer (ml): 700 Total IV fluid infused: 700 Progress Note Anesthesia document: Postop Eval 1 completed: Yes
--- NOTE | 2024-07-31 11:27 | POSTOPAN2_ITS ---
Anesthesia Postop Eval I Sum Postop Eval Completion status Anesthesia document: Postop Eval 1 completed: Yes Anesthesia Postop Eval I Summary Anesthesia Postop Eval I Summary: Anesthesia Postop Eval I: Assessment Summary Airway patent Yes 07/31/24 11:00 HOT DIMPLING MACHINE OPERATOR.[email or web address] Spontaneous unlabored Yes 07/31/24 11:00 HOT DIMPLING MACHINE OPERATOR.ELIOT respirations Mental status Awake,Calm 07/31/24 11:00 HOT DIMPLING MACHINE OPERATOR.ELIOT nausea No 07/31/24 11:00 HOT DIMPLING MACHINE OPERATOR.ELIOT Vomiting No 07/31/24 11:00 HOT DIMPLING MACHINE OPERATOR.ELIOT Anesthesia Postop Eval I: Fluid Summary Crystalloid volume administer 700 07/31/24 11:00 HOT DIMPLING MACHINE OPERATOR.ELIOT (ml) Colloids volume administered ( ml) Blood Product volume administered (ml) Total IV fluid infused 700 07/31/24 11:00 HOT DIMPLING MACHINE OPERATOR.ELIOT Anesthesia Postop Eval I: Summary Notes Anesthesia Complication No 07/31/24 11:00 [email or web address] Anesthesia Complication Comment: Post-operative progress note Anesthesia: Postop Eval II Evaluation Mental status: Awake Pain Level: 0 nausea: No Vomiting: No
--- NOTE | 2024-07-31 11:27 | PCM.POSTANE2 ---
Anesthesia Postop Eval I Sum Postop Eval Completion status Anesthesia document: Postop Eval 1 completed: Yes Anesthesia Postop Eval I Summary Anesthesia Postop Eval I Summary: Anesthesia Postop Eval I: Assessment Summary Airway patent Yes 07/31/24 11:00 FOUNTAIN [email or web address] Spontaneous unlabored Yes 07/31/24 11:00 FOUNTAIN WORKER.[email or web address] respirations Mental status Awake,Calm 07/31/24 11:00 FOUNTAIN [email or web address] nausea No 07/31/24 11:00 FOUNTAIN WORKER.[email or web address] Vomiting No 07/31/24 11:00 FOUNTAIN WORKER.[email or web address] Anesthesia Postop Eval I: Fluid Summary Crystalloid volume administer 700 07/31/24 11:00 FOUNTAIN [email or web address].[email or web address] (ml) Colloids volume administered ( ml) Blood Product volume administered (ml) Total IV fluid infused 700 07/31/24 11:00 FOUNTAIN [email or web address] Anesthesia Postop Eval I: Summary Notes Anesthesia Complication No 07/31/24 11:00 [email or web address] Anesthesia Complication Comment: Post-operative progress note Anesthesia: Postop Eval II Evaluation Mental status: Awake Pain Level: 0 nausea: No Vomiting: No
[2024-07-31] MEDS: Tetracaine 0.5% Ophthalmic Bottle 1 DRP LEFT EYE (12:01)
[2024-07-31] MEDS: Bacitracin/Polymin B Sulfate 3.5 GM OPTH.TUBE 1 APPLIC LEFT EYE (12:21)
== END 2024-07-31 12:24 | disposition home or self-care (01) ==
LOC: SDC 05:43 → AC 05:45
PROVIDERS: PCP Family Medicine; Referring Provider Podiatrist Foot & Ankle Surgery; Visit Provider Podiatrist Foot & Ankle Surgery
PROC: (CPT 20900; principal; 2024-07-31 07:15)
DX: M20.41 Other hammer toe(s) (acquired), right foot (principal); L40.50 Arthropathic psoriasis, unspecified; E11.69 Type 2 diabetes mellitus with other specified complication; M20.31 Hallux varus (acquired), right foot; M19.071 Primary osteoarthritis, right ankle and foot; M24.574 Contracture, right foot; I10 Essential (primary) hypertension; K21.9 Gastro-esophageal reflux disease without esophagitis; E66.9 Obesity, unspecified; M79.7 Fibromyalgia; N32.81 Overactive bladder; G47.33 Obstructive sleep apnea (adult) (pediatric); Z68.33 Body mass index [BMI] 33.0-33.9, adult; Z79.899 Other long term (current) drug therapy; Z87.891 Personal history of nicotine dependence; Z96.653 Presence of artificial knee joint, bilateral
CPT/HCPCS: 20900; 28760; 28285 ×4; 01480; 73620; 76000; 82962; C1713; J2405

== ENCOUNTER → 2024-10-21 | Outpatient (CLI) | payer MEDICARE, OTHER, SELFPAY ==
--- NOTE | 2024-10-21 16:58 | US_ITS ---
PROCEDURE: THYROID 10/21/2024 REASON FOR EXAM: ONE YEAR F/U TECHNIQUE: High-frequency thyroid ultrasound, including grayscale and color-flow images. COMPARISON: Ultrasound thyroid dated 10/16/2023. FINDINGS: RIGHT THYROID LOBE Size: 4.8 x 2.0 x 1.8 cm. Contour: Smooth. Parenchyma: Heterogeneous Nodule: Superior pole, 1.5 x 1.3 x 0.8 cm, mixed cystic and solid, well- circumscribed, wider than tall, hypoechoic, no calcifications, TR 3. Nodule: Lateral midpole, 1.1 x 0.9 x 0.8 cm, mixed cystic and solid, well- circumscribed, wider than tall, hypoechoic, with calcifications, TR 4. Nodule: Lateral midpole, 0.6 x 0.7 x 0.3 cm, cystic, well-circumscribed, TR 1. Nodule: Mid inferior pole, 1.1 x 1.0 x 0.4 cm, mixed cystic and solid, well- circumscribed, wider than tall, hypoechoic, no calcifications, TR 3. Nodule: Inferior pole, 1.0 x 0.8 x 0.4 cm, mixed cystic and solid, well- circumscribed, wider than tall, hypoechoic, no calcifications, TR 3. LEFT THYROID LOBE Size: 4.0 x 1.4 x 1.7 cm. Contour: Smooth. Parenchyma: Heterogeneous. Nodules: Multiple stable cystic micronodules are redemonstrated, TR 1. ISTHMUS Size: 0.22.cm. Contour: Smooth. Parenchyma: Homogeneous. Nodules: None noted. US/Thyroid IMPRESSION: 1. TR 3 and TR 4 category nodules in the right thyroid lobe, stable. No FNA w arranted. Follow-up ultrasound recommended in 12 months. 2. Benign stable cystic micronodule scattered throughout the left thyroid lobe . Reading Location: [facility]
== END | disposition home or self-care (01) ==
LOC: US 16:56
PROVIDERS: PCP Family Medicine; Referring Provider Surgery; Visit Provider Surgery
DX: E04.1 Nontoxic single thyroid nodule (principal); E04.2 Nontoxic multinodular goiter
CPT/HCPCS: 76536

== ENCOUNTER → 2024-12-24 | Outpatient (CLI) | payer MEDICARE, OTHER, SELFPAY ==
--- NOTE | 2024-12-24 15:20 | BD_ITS ---
PROCEDURE: DEXA BONE DENSITY STUDY 12/24/2024 REASON FOR EXAM: F, age 74 y/o . Postmenopausal. TECHNIQUE: DEXA BONE DENSITY STUDY COMPARISON: None FINDINGS: BMD and T-SCORES Lumbar spine: 1.075 g/cm2, T-score 0.6 Levels: L1 through L4 Right femoral neck: 0.660 g/cm2, T-score -1.7 Femoral neck comparison data not recommended for monitoring change. Right total hip: 0.681 g/cm2, T-score -2.1 The World Health Organization has defined the following categories based on bone density: Normal bone density: T-score equal to or greater than -1.0 Osteopenia: T-score between -1.0 and -2.5 Osteoporosis: T-score equal to or less than -2.5 The patient does meet the pharmacological treatment recommendations for prevention of osteoporosis. BD/Dexa Bone Density Study IMPRESSION: OSTEOPENIA. Recommend follow-up as clinically warranted. Reading Location: [place] [id number]
--- NOTE | 2024-12-24 15:20 | BI_ITS ---
EXAM: SCRN MAMM (CAD)W/REDDY BILAT DATE: 12/24/2024 CLINICAL HISTORY: F, Age 74 y/o , SCREENING TECHNIQUE: SCRN MAMM (CAD)W/REDDY BILAT COMPARISON: Prior exam(s) were compared FINDINGS: TISSUE DENSITY: The breasts are heterogeneously dense, which may obscure small masses. Bilateral Breast Mammographic Findings: No suspicious masses, calcifications or other abnormalities are identified. BI/SCRN MAMM (CAD)W/REDDY BILAT IMPRESSION: No mammographic evidence of malignancy in either breast OVERALL FINAL ASSESSMENT BI-RADS 1: NEGATIVE. RECOMMEND ANNUAL MAMMOGRAPHIC SCREENING. RECOMMENDATION: Routine annual follow-up in 1 Year A letter with findings and recommendations will be mailed to the patient. Reading Location: [id number]
== END | disposition home or self-care (01) ==
PROVIDERS: PCP Family Medicine; Referring Provider Family Medicine; Visit Provider Family Medicine
DX: Z12.31 Encounter for screening mammogram for malignant neoplasm of breast (principal); Z78.0 Asymptomatic menopausal state; M85.88 Other specified disorders of bone density and structure, other site; M85.851 Other specified disorders of bone density and structure, right thigh
CPT/HCPCS: 77063; 77067; 77080